=== PATIENT | female | born 1975 | race Caucasian/White ===

== ENCOUNTER 2016-05-08 15:01 | Emergency (ER) | payer MEDICARE ==
[2016-05-08] MEDS ORDERED: NS 0.9% 1000 ML* 1,000 ML IV ONE (16:45)
[2016-05-08] MEDS ORDERED: Ondansetron INJ* 2 MG/ML VIAL IV ONE (16:45)
--- NOTE | 2016-05-08 16:52 | ED ---
Influenza-Like Illness - HPI Summary HPI Summary: Pt here w/ flu-like sx x yesterday. Started as feeling fatigued and achey - pt reports fever of 104F orally this morning. This was followed by chills and trying to get warm under electric blanket - did not take anything for fever nor did she break a sweat but temp is WNL at this time. She has been vomiting and having diarrhea w/ ab discomfort and body wide aching persists. ST. Denies rhinorrhea, sneezing, otalgia, rash, cough. Went to son's school Tuesday and thinks she may have picked up an illness while there. She also has a bad BURGER/ migraine as she's not been able to hold down her daily meds, including atenolol , hormones that act as preventative migraine medication, synthroid, and anti- anxiety medication. Her BP is well controlled at this time, but heart rate is slightly increased. Her chart reveals she's been seen here frequently and she herself admits she gets sick quite a bit in the winter months. Follows w/ PCP and take dialudid 2mg PO PRN migraine BURGER. Checked ISTOP and last filled in March 2016. Pt denies withdrawal from narcotics. - History of Current Complaint Chief Complaint: EDHeadache Time Seen by Provider: 05/08/16 16:23 Hx Obtained From: Patient, Family/Divisional Human Resources Director - male partner - Allergy/Home Medications Allergies/Adverse Reactions: Allergies Allergy/AdvReac Type Severity Reaction Status Date / Time Metoclopramide [From Reglan] Allergy Severe Anaphylatic Verified 05/08/16 15:32 Shock Prochlorperazine Allergy Severe CAUSES Verified 05/08/16 15:32 [From Compazine] PARALYSIS Promethazine Allergy Severe distonic Verified 05/08/16 15:32 Tramadol [From Ultram] Allergy Severe Anaphylatic Verified 05/08/16 15:32 Shock, MAKES HEADACHE WORSE Haloperidol [From Haldol] Allergy Anxiety Verified 05/08/16 15:32 Hydralazine AdvReac Intermediate Headache Verified 05/08/16 15:32 Sumatriptan [From Imitrex] AdvReac Intermediate MAKES Verified 05/08/16 15:32 HEADACHES WORSE PMH/Surg Hx/FS Hx/Imm Hx Previously Healthy: Yes Endocrine/Hematology History: Reports: Hx Thyroid Disease - hypothyroidism, Hx Anemia - during and after of child- NO PROBLEMS NOW Denies: Hx Diabetes Cardiovascular History: Reports: Hx Hypertension - control with meds, Other Cardiovascular Problems/Disorders - Pulmonary heart edema after child Denies: Hx Congestive Heart Failure, Hx Pacemaker/ICD Respiratory History: Reports: Hx Pulmonary Edema - after child 2013, denies problems since, Other Respiratory Problems/Disorders - HAD PULMONARY EDEMA WHILE , WAS IN ICU for 1 week after csection Denies: Hx Asthma, Hx Chronic Obstructive Pulmonary Disease (COPD) GI History: Reports: Other GI Disorders - Gi problems related to pain which causes proj emesis- WITH MIGRAINES History: Denies: Hx Renal Disease Musculoskeletal History: Reports: Other Musculoskeletal History - Carpal tunnel of both hands Denies: Hx Rheumatoid Arthritis, Hx Osteoporosis Sensory History: Reports: Hx Contacts or Glasses - contact, will wear glasses day of surgery Denies: Hx Hearing Aid Opthamlomology History: Reports: Hx Contacts or Glasses - contact, will wear glasses day of surgery Neurological History: Reports: Hx Migraine - FREQUENTLY, Hx Seizures - when in her 20's reports 2-none since, Other Neuro Impairments/Disorders - 2013 numbness in legs DURING - release after csection Psychiatric History: Reports: Hx Anxiety, Hx Depression - CONTROL WITH MEDS, Hx Community Mental Health Tx, Hx Suicide Attempt - Denies but is here for ' accidental overdose on prescription medications', Other Psychiatric Issues/ Disorders Denies: Hx Eating Disorder, Hx Panic Disorder, Hx of Violent Episodes Against Others - Surgical History Surgery Procedure, Year, and Place: 1989 TONSILLECTOMY, [place]. 2000 MYOMECTOMY , [facility]. 2012 IVF, [place]. 2014 CSECTION, [facility] [place]. 2016-LEFT WRIST CARPAL TUNNEL RELEASE-MIGRAINE FOLLOWING SURGERY Hx Anesthesia Reactions: Yes - 2000-trouble waking up, had to be put back under x 2, epidural did not work - Immunization History Date of Tetanus Vaccine: Up to date Date of Influenza Vaccine: None for Fall 2012 Infectious Disease History: No Infectious Disease History: Denies: Hx Hepatitis, Hx Human Immunodeficiency Virus (HIV), Traveled Outside the [place] in Last 30 Days - Family History Known Family History: Positive: None, Other - mother: bipolar disorder; depression: grandmother, uncle Family History: R & n/X - Social History Lives: With Family Alcohol Use: None Hx Substance Use: No Substance Use Type: Reports: None Substance Use Comment - Amount & Last Used: took diluadid in ER last night with in 6 hrs for neck pain Hx Tobacco Use: No Smoking Status (MU): Never Smoked Tobacco Review of Systems Positive: Fever, Chills, Fatigue Positive: Photophobia Positive: Sore Throat Negative: Palpitations, Chest Pain Negative: Shortness Of Breath, Cough Gastrointestinal: Other - see HPI Negative: dysuria, flank pain Positive: Myalgia - see HPI Negative: Rash Positive: Headache - see HPI Psychological: Normal All Other Systems Reviewed And Are Negative: Yes Physical Exam Triage Information Reviewed: Yes Vital Signs On Initial Exam: Initial Vitals Temp Pulse Resp BP Pulse Ox 97.8 F 102 14 146/76 100 05/08/16 15:05 05/08/16 15:05 05/08/16 15:05 05/08/16 15:05 05/08/16 15:05 Vital Signs Reviewed: Yes Appearance: Positive: Well-Nourished, Ill-Appearing, Pain Distress Skin: Positive: Warm, Dry Diagnostics - Vital Signs Vital Signs Temp Pulse Resp BP Pulse Ox 05/08/16 15:05 97.8 F 102 14 146/76 100 - Laboratory Result Diagrams: 05/08/16 17:25 05/08/16 17:25 Lab Statement: Any lab studies that have been ordered have been reviewed, and results considered in the medical decision making process. Re-Evaluation - Re-Evaluation First Eval Change: Improved - nausea improved s/p zofran but still has BURGER - when discussed I would match her home dose of dilaudid (2mg PO = 0.5mg IV), pt states "I always get 2mg IV". Replied I would try a lower dose first and go from there Second Eval Change: Unchanged - no pain relief w/ 0.5mg dilaudid - offered ativan IV for anxiety as she takes clonazepam at home - pt declined and states she prefers diladid first, then will try ativan if necessary. Third Eval Change: Improved - pt is pleasant, sitting up, making eye contact, happy, remarks she feels SO much better s/p total of 2mg IV dilaudid. Feels well to go home now. Flu Symptom Course/Dx - Course Course Of Treatment: Pt presents w/ sx of flu-like illness and intractable pain - reports she has not been able to take her routine meds at home as she's had vomiting and diarrhea - wasn't able to take PO meds nor use suppository. She's also out of PO dilaudid she has for acute migraines. Checked ISTOP and pt's last rx was provided in March 2016. Prior to this, she was receiving dilaudid routinely from PCP. She also had a rx for clonazepam rx'd routinely by psych provider. She has multiple visits to the ED, receiving IV dilaudid most times. Discussed concern about pt addressing this with PCP as this is a poor means of addressing her condition. Offered discussing immunology assesment as her issues started after and she states she gets sick in the winter month frequently, triggering these episodes. She agrees to f/u w/ PCP this week. Labs are WNL today. CT brain and cervical spine 05/05/2015 normal. Will notify ED director, Dr. Ledbetter, about her frequency and treatment. This may be appropriate course of care, however this pattern does raises some flags and there may be benefit from a discussion w/ pt's PCP during the week days. Again, pt denies withdrawing as well as abuse of medication today which is why this was provided. - Diagnoses Provider Diagnoses: Migraine Discharge - Discharge Plan Condition: Stable Disposition: HOME Prescriptions: HYDROmorphone TAB* [Dilaudid TAB*] 2 mg PO Q6H PRN #15 tab MDD 4 PRN Reason: Pain Ondansetron ODT TAB* [Zofran Odt TAB*] 4 mg PO Q8H PRN #9 tab.odt PRN Reason: Nausea Patient Education Materials: Migraine Headache (ED), Acute Nausea and Vomiting (ED), Acute Diarrhea (ED) Referrals: Itzel Landeros MD [Primary Care Provider] - Additional Instructions: Your tests today do not indicate infection. The cause of your vomiting and diarrhea are unknown at this time however you improved with zofran and dilaudid. A short supply has been refilled for you. Please follow-up with your PCP this week. *If you develop intractable fever, vomiting, chest pain, difficulty breathing, weakness return to ED NOTE: you have a history of multiple hospital visits for illness and pain - it was discussed that you may benefit from an immune work up. Please discuss with PCP.
[2016-05-08 17:18] LABS: Urine Bilirubin Negative (Negative); Urine Glucose Negative (Negative); Urine Nitrite Negative (Negative)
[2016-05-08 17:40] LABS: Hematocrit 42 % (35-47); Hemoglobin 13.4 g/dl (12.0-16.0); Mean Corpuscular HGB Conc 32 g/dl (31-36); Mean Corpuscular Hemoglobin 24 pg (27-31); Mean Corpuscular Volume 75 fL (80-97); Mean Platelet Volume 10 um3 (7.4-10.4); Red Blood Count 5.55 10^6/ul (4.0-5.4); Red Cell Distribution Width 16 % (10.5-15); White Blood Count 8.4 10^3/ul (3.5-10.8)
[2016-05-08 17:55] LABS: Albumin 4.5 g/dL (3.2-5.2); BUN/Creatinine Ratio 11.6 (8-20); C Reactive Protein 2.69 mg/L (< 5.00); Calcium 9.6 mg/dL (8.6-10.3); EGFR African American 120.6 (>60); EGFR Non-African American 93.8 (>60); Potassium 3.8 mmol/L (3.5-5.0); Total Bilirubin 0.3 mg/dL (0.2-1.0); Total Protein 7.5 g/dL (6.4-8.9)
[2016-05-08] MEDS ORDERED: HYDROmorphone INJ* 1 MG/ML CARPUJECT SYRINGE IV SLOW PU ONE ×2 (17:55→18:19)
[2016-05-08] MEDS ORDERED: Atenolol TAB* 25 MG PO ONE (18:20)
[2016-05-08 19:42] VITALS: BP 122/81
== END 2016-05-08 19:41 | disposition home or self-care (01) ==
LOC: ED 15:01
DX: G43.909 Migraine, unspecified, not intractable, without status migrainosus (principal); R50.9 Fever, unspecified; R53.83 Other fatigue; R51 Headache; H53.149 Visual discomfort, unspecified; J02.9 Acute pharyngitis, unspecified
CPT/HCPCS: 36415; 80053; 81003; 83605; 85025; 86140; 87502; 87651; 96374; 96375; 96376; 99284; J1170; J2405

== ENCOUNTER → 2016-05-09 17:27 | Emergency (ER) | payer MEDICARE ==
[~2016-05-09 17:27] MED LIST: NS 0.9% 1000 ML* 1,000 ML IV ONE
[2016-05-09 17:33] VITALS: BP 129/86
[2016-05-09 18:15] LABS: Urine Bilirubin Negative (Negative); Urine Glucose Negative (Negative); Urine Nitrite Negative (Negative)
--- NOTE | 2016-05-09 18:45 | RAD ---
Indication: Unable to speak for a few minutes. Comparison: May 05, 2015. Technique: Noncontrast CT vertex of skull through foramen magnum. Report: The sulci, ventricles, and basal cisterns are normal for age. Santos matter white matter differentiation is preserved without evidence for edema. Minimal bilateral calcification noted at the tentorium cerebelli unchanged from the prior exam without concern. No intra or extra axial hemorrhage, mass, or fluid collection detected. Unremarkable orbital contents. Unremarkable calvarium and skull base. Unremarkable scalp. The visualized paranasal sinuses and mastoid air spaces are clear. IMPRESSION: Negative unenhanced head CT.
--- NOTE | 2016-05-09 19:13 | ED ---
Renetta Ching Rebecca, scribed for Christopher Metz MD on 05/09/16 at 1750 . Shortness of Breath - HPI Summary HPI Summary: Pt is a 40 y/o F BIBA who presents to ED c/o SOB. SOB began suddenly today while sleeping and has been constant since onset. SOB characterized as mild dyspnea at rest, aggravated and alleviated by nothing. Additionally c/o difficulty speaking/stuttering and dry mouth. Reports that while talking to her mom "I felt like I was talking to her and I couldn't pronounce or say any words. " Pt was evaluated in the ED yesterday for N/V and was D/C upon feeling significantly improved. - History of Current Complaint Chief Complaint: EDHeadache Time Seen by Provider: 05/09/16 17:37 Hx Obtained From: Patient Onset/Duration: Sudden Onset Timing: Constant Current Severity: Mild Dyspnea At: Rest Aggrevating Factors: Nothing Alleviating Factors: Nothing Associated Signs & Symptoms: Negative - Allergy/Home Medications Allergies/Adverse Reactions: Allergies Allergy/AdvReac Type Severity Reaction Status Date / Time Metoclopramide [From Reglan] Allergy Severe Anaphylatic Verified 05/08/16 15:32 Shock Prochlorperazine Allergy Severe CAUSES Verified 05/08/16 15:32 [From Compazine] PARALYSIS Promethazine Allergy Severe distonic Verified 05/08/16 15:32 Tramadol [From Ultram] Allergy Severe Anaphylatic Verified 05/08/16 15:32 Shock, MAKES HEADACHE WORSE Haloperidol [From Haldol] Allergy Anxiety Verified 05/08/16 15:32 Hydralazine AdvReac Intermediate Headache Verified 05/08/16 15:32 Sumatriptan [From Imitrex] AdvReac Intermediate MAKES Verified 05/08/16 15:32 HEADACHES WORSE PMH/Surg Hx/FS Hx/Imm Hx Endocrine/Hematology History: Reports: Hx Thyroid Disease - hypothyroidism, Hx Anemia - during and after of child- NO PROBLEMS NOW Denies: Hx Diabetes Cardiovascular History: Reports: Hx Hypertension - control with meds, Other Cardiovascular Problems/Disorders - Pulmonary heart edema after child Denies: Hx Congestive Heart Failure, Hx Pacemaker/ICD Respiratory History: Reports: Hx Pulmonary Edema - after child 2013, denies problems since, Other Respiratory Problems/Disorders - HAD PULMONARY EDEMA WHILE , WAS IN ICU for 1 week after csection Denies: Hx Asthma, Hx Chronic Obstructive Pulmonary Disease (COPD) GI History: Reports: Other GI Disorders - Gi problems related to pain which causes proj emesis- WITH MIGRAINES History: Denies: Hx Renal Disease Musculoskeletal History: Reports: Other Musculoskeletal History - Carpal tunnel of both hands Denies: Hx Rheumatoid Arthritis, Hx Osteoporosis Sensory History: Reports: Hx Contacts or Glasses - contact, will wear glasses day of surgery Denies: Hx Hearing Aid Opthamlomology History: Reports: Hx Contacts or Glasses - contact, will wear glasses day of surgery Neurological History: Reports: Hx Migraine - FREQUENTLY, Hx Seizures - when in her 20's reports 2-none since, Other Neuro Impairments/Disorders - 2013 numbness in legs DURING - release after csection Psychiatric History: Reports: Hx Anxiety, Hx Depression - CONTROL WITH MEDS, Hx Community Mental Health Tx, Hx Suicide Attempt - Denies but is here for ' accidental overdose on prescription medications', Other Psychiatric Issues/ Disorders Denies: Hx Eating Disorder, Hx Panic Disorder, Hx of Violent Episodes Against Others - Surgical History Surgery Procedure, Year, and Place: 1989 TONSILLECTOMY, [place]. 2000 MYOMECTOMY , [facility]. 2012 IVF, [place]. 2014 CSECTION, [facility] [place]. 2016-LEFT WRIST CARPAL TUNNEL RELEASE-MIGRAINE FOLLOWING SURGERY Hx Anesthesia Reactions: Yes - 2000-trouble waking up, had to be put back under x 2, epidural did not work - Immunization History Date of Tetanus Vaccine: Up to date Date of Influenza Vaccine: None for Fall 2012 Infectious Disease History: No Infectious Disease History: Denies: Hx Hepatitis, Hx Human Immunodeficiency Virus (HIV), Traveled Outside the [place] in Last 30 Days - Family History Known Family History: Positive: Other - mother: bipolar disorder; depression: grandmother, uncle - Social History Alcohol Use: Rare Hx Substance Use: No Substance Use Type: Reports: None Hx Tobacco Use: No Smoking Status (MU): Never Smoked Tobacco Review of Systems Positive: Other - Dry throat Positive: Shortness Of Breath - dyspnea at rest Neurological: Other - Difficulty speaking/stuttering All Other Systems Reviewed And Are Negative: Yes Physical Exam - Summary Physical Exam Summary: VITAL SIGNS: Reviewed. GENERAL: Patient is a well developed and nourished female who is lying comfortable in the stretcher. Patient is not in any acute respiratory distress. HEAD AND FACE: No signs of trauma. No ecchymosis, hematomas or skull depressions. No sinus tenderness. EYES: PERRLA, EOMI x 2, No injected conjunctiva, no nystagmus. No photophobia. EARS: Hearing grossly intact. Ear canals and tympanic membranes are within normal limits. MOUTH: Oropharynx within normal limits. NECK: Supple, trachea is midline, no adenopathy, no JVD, no carotid bruit, no c- spine tenderness, neck with full ROM. No meningeal signs, no Kernig's or brudzinskis signs. CHEST: Symmetric, no tenderness at palpation LUNGS: Clear to auscultation bilaterally. No wheezing or crackles. CVS: Regular rate and rhythm, S1 and S2 present, no murmurs or gallops appreciated. ABDOMEN: Soft, non-tender. No signs of distention. No rebound no guarding, and no masses palpated. Bowel sounds are normal. EXTREMITIES: FROM in all major joints, no edema, no cyanosis or clubbing. NEURO: Alert and oriented x 3. No acute neurological deficits. Speech is normal and follows commands. SKIN: Dry and warm Triage Information Reviewed: Yes Vital Signs On Initial Exam: Initial Vitals Temp Pulse Resp BP Pulse Ox 98.0 F 94 20 129/86 100 05/09/16 17:28 05/09/16 17:28 05/09/16 17:28 05/09/16 17:28 05/09/16 17:28 Vital Signs Reviewed: Yes Diagnostics - Vital Signs Vital Signs Temp Pulse Resp BP Pulse Ox 05/09/16 17:28 98.0 F 94 20 129/86 100 - Laboratory Lab Results: Lab Results 05/09/16 Range/Units 18:03 Urine Color Straw Urine Appearance Clear Urine pH 5.0 (5-9) Ur Specific [place] 1.003 L (1.010-1.030) Urine Protein Negative (Negative) Urine Ketones Negative (Negative) Urine Blood Negative (Negative) Urine Nitrate Negative (Negative) Urine Bilirubin Negative (Negative) Urine Urobilinogen Negative (Negative) Ur Leukocyte Esterase Negative (Negative) Urine Glucose Negative (Negative) Lab Statement: Any lab studies that have been ordered have been reviewed, and results considered in the medical decision making process. - CT Brain CT CT Interpretation: No Acute Changes - Negative unenhanced head CT. CT Interpretation Completed By: Radiologist Course/Dx - Course Assessment/Plan: Pt is a 40 y/o F BIBA who presents to ED c/o SOB which began suddenly today while sleeping and has been constant since onset. SOB characterized as mild dyspnea at rest, aggravated and alleviated by nothing. Additionally c/o difficulty speaking/stuttering and dry mouth. Reports that while talking to her mom "I felt like I was talking to her and I couldn't pronounce or say any words." Pt was evaluated in the ED yesterday for N/V and was D/C upon feeling significantly improved. P/E: reveals normal physical exam except for dry mouth. Her neurological exam is normal. NIH score is 0. At triage she reported a headache since she has runned out of her Dilaudid. However during my interview she did not mention she has a migraine headache. She had full blood work yesterday and it was found to be wnl. UA was negative for UTI. Lung exam: CTA b/l. She has no wheezing, and she has no crackles. Therefore I don not believe patient has Asthma or COPD. No suspicion for PE since patient is not hypoxic or tachycardic. I believe patient became anxious and developed all her symptoms. Head CT impression: Negative for an acute intracranial pathology. I believe patient was dehydrated therefore she was given IF fluid. Right before she was discharged she reported a headache. She requested excedrin. We do not have any Excedrin and she was offer Toradol or TYlenol or Ibuprofen and she declined. Therefore she will be discharged home with F/u of PMD. I discussed all the findings and test results with the patient. Patient was instructed to return to the emergency room immediately if any of the symptoms return or worsens. Plan of care was discussed with the patient and understands and agrees. All questions were answered at patient satisfaction. There were no further complaints or concerns. P/E: Lungs: CTA B/ L. Good air exchange. No wheezing or crackles heard. CVS: S1 and S2 present. No murmurs appreciated. Patient is alert and oriented x 3. Patient is hemodynamically stable. Patient will be discharged home with follow up PMD in the next 2-3 days - Diagnoses Differential Diagnosis/HQI/PQRI: Positive: Asthma, COPD Exacerbation Provider Diagnoses: Anxiety, Weakness, Dyspnea Discharge - Discharge Plan Condition: Stable Disposition: HOME Patient Education Materials: Weakness (ED) Referrals: Itzel Landeros MD [Primary Care Provider] - 3 Days (Follow up with your primary care physician in the next 3 days. ) The documentation as recorded by the Renetta bolanos Rebecca accurately reflects the service I personally performed and the decisions made by me, Christopher Metz MD.
== END | disposition home or self-care (01) ==
LOC: ED 17:27
DX: F41.9 Anxiety disorder, unspecified (principal); R53.1 Weakness; R06.00 Dyspnea, unspecified
CPT/HCPCS: 70450; 81003; 99282

== ENCOUNTER 2016-05-23 02:44 | Inpatient (IN) | payer MEDICARE ==
[2016-05-23] MEDS ORDERED: Ondansetron INJ* 2 MG/ML VIAL IV ONE (03:03)
[2016-05-23] MEDS ORDERED: GuaiFENesin DM* 5 ML UDC PO ONE (03:25)
[2016-05-23] MEDS ORDERED: LORazepam INJ* 2 MG/ML 1 ML VIAL IV PUSH ONE (03:26)
[2016-05-23] MEDS ORDERED: Albuterol 2.5 MG/3 ML NEB.SOL* (0.083%) INH ONE (04:33)
[2016-05-23 04:50] LABS: Hematocrit 35 % (35-47); Hemoglobin 11.2 g/dl (12.0-16.0); Mean Corpuscular HGB Conc 32 g/dl (31-36); Mean Corpuscular Hemoglobin 24 pg (27-31); Mean Platelet Volume 9 um3 (7.4-10.4); Red Cell Distribution Width 16 % (10.5-15); White Blood Count 13.1 10^3/ul (3.5-10.8)
[2016-05-23 04:55] LABS: Comments Flag Yes; Mean Corpuscular Volume 75 fL (80-97)
[2016-05-23 05:07] LABS: Albumin 3.7 g/dL (3.2-5.2); BUN/Creatinine Ratio 8.4 (8-20); Calcium 9.2 mg/dL (8.6-10.3); EGFR African American 97.4 (>60); EGFR Non-African American 75.8 (>60); Globulin 3.3 g/dL (2-4); Potassium 3.3 mmol/L (3.5-5.0); Total Bilirubin 0.4 mg/dL (0.2-1.0)
[2016-05-23] MEDS ORDERED: Iohexol 350* (CONTRAST) 500 ML MDV IV ONE (05:19)
[2016-05-23] MEDS ORDERED: Ketorolac INJ* 30 MG/ML 1 ML VIAL IV PUSH ONE (05:46)
--- NOTE | 2016-05-23 05:54 | ED ---
Delma Ching Michael, scribed for Lukas Doss MD on 05/23/16 at 0343 . Shortness of Breath - HPI Summary HPI Summary: 40 y/o female comes to the ED presenting with SOB that started 2 days ago. The was bedside and reports that the pt visited her PCP 2 days ago and was prescribed Prednisone, Albuterol, and Benzonatate. The SOB still gradually worsened for the past 2 days. She also c/o a non-productive cough and back pain that is aggravated with movement. The PMHx is significant for pulmonary edema. - History of Current Complaint Time Seen by Provider: 05/23/16 02:51 Hx Obtained From: Patient, Family/Ortho Tech - , Medical Records Onset/Duration: Gradual Onset, Lasting Days, Still Present Timing: Constant Current Severity: Moderate Dyspnea At: Rest Alleviating Factors: Nothing Associated Signs & Symptoms: Cough (Nonproductive) - SOB. back pain. - Allergy/Home Medications Allergies/Adverse Reactions: Allergies Allergy/AdvReac Type Severity Reaction Status Date / Time Metoclopramide [From Reglan] Allergy Severe Anaphylatic Verified 05/08/16 15:32 Shock Prochlorperazine Allergy Severe CAUSES Verified 05/08/16 15:32 [From Compazine] PARALYSIS Promethazine Allergy Severe distonic Verified 05/08/16 15:32 Tramadol [From Ultram] Allergy Severe Anaphylatic Verified 05/08/16 15:32 Shock, MAKES HEADACHE WORSE Haloperidol [From Haldol] Allergy Anxiety Verified 05/08/16 15:32 Hydralazine AdvReac Intermediate Headache Verified 05/08/16 15:32 Sumatriptan [From Imitrex] AdvReac Intermediate MAKES Verified 05/08/16 15:32 HEADACHES WORSE PMH/Surg Hx/FS Hx/Imm Hx Endocrine/Hematology History: Reports: Hx Thyroid Disease - hypothyroidism, Hx Anemia - during and after of child- NO PROBLEMS NOW Denies: Hx Diabetes Cardiovascular History: Reports: Hx Hypertension - control with meds, Other Cardiovascular Problems/Disorders - Pulmonary heart edema after child Denies: Hx Congestive Heart Failure, Hx Pacemaker/ICD Respiratory History: Reports: Hx Pulmonary Edema - after child 2013, denies problems since, Other Respiratory Problems/Disorders - HAD PULMONARY EDEMA WHILE , WAS IN ICU for 1 week after csection Denies: Hx Asthma, Hx Chronic Obstructive Pulmonary Disease (COPD) GI History: Reports: Other GI Disorders - Gi problems related to pain which causes proj emesis- WITH MIGRAINES History: Denies: Hx Renal Disease Musculoskeletal History: Reports: Other Musculoskeletal History - Carpal tunnel of both hands Denies: Hx Rheumatoid Arthritis, Hx Osteoporosis Sensory History: Reports: Hx Contacts or Glasses - contact, will wear glasses day of surgery Denies: Hx Hearing Aid Opthamlomology History: Reports: Hx Contacts or Glasses - contact, will wear glasses day of surgery Neurological History: Reports: Hx Migraine - FREQUENTLY, Hx Seizures - when in her 20's reports 2-none since, Other Neuro Impairments/Disorders - 2013 numbness in legs DURING - release after csection Psychiatric History: Reports: Hx Anxiety, Hx Depression - CONTROL WITH MEDS, Hx Community Mental Health Tx, Hx Suicide Attempt - Denies but is here for ' accidental overdose on prescription medications', Other Psychiatric Issues/ Disorders Denies: Hx Eating Disorder, Hx Panic Disorder, Hx of Violent Episodes Against Others - Surgical History Surgery Procedure, Year, and Place: 1989 TONSILLECTOMY, [place]. 2000 MYOMECTOMY , [facility]. 2012 IVF, [place]. 2013 CSECTION, [facility]. 2016-LEFT WRIST CARPAL TUNNEL RELEASE-MIGRAINE FOLLOWING SURGERY Hx Anesthesia Reactions: Yes - 2000-trouble waking up, had to be put back under x 2, epidural did not work - Immunization History Date of Tetanus Vaccine: Up to date Date of Influenza Vaccine: None for Fall 2012 Infectious Disease History: Denies: Hx Hepatitis, Hx Human Immunodeficiency Virus (HIV) - Family History Known Family History: Positive: Other - mother: bipolar disorder; depression: grandmother, uncle - Social History Occupation: Disabled Lives: With Family Alcohol Use: Rare Hx Substance Use: No Substance Use Type: Reports: None Hx Tobacco Use: No Smoking Status (MU): Never Smoked Tobacco Review of Systems Negative: Fever Positive: Shortness Of Breath, Cough Positive: Other - back pain All Other Systems Reviewed And Are Negative: Yes Physical Exam Triage Information Reviewed: Yes Vital Signs On Initial Exam: Initial Vitals Temp Pulse Resp BP Pulse Ox 99.3 F 130 38 150/113 97 05/23/16 02:54 05/23/16 02:54 05/23/16 02:54 05/23/16 02:54 05/23/16 02:54 Vital Signs Reviewed: Yes Appearance: Positive: Pain Distress - mild discomfort, Thin Skin: Positive: Warm Head/Face: Positive: Normal Head/Face Inspection Eyes: Positive: JOSUE ENT: Positive: Hearing grossly normal Neck: Positive: Supple Respiratory/Lung Sounds: Positive: Other - coughing, mild splinting, clear Cardiovascular: Positive: RRR Abdomen Description: Positive: Nontender, Soft Bowel Sounds: Positive: Present Musculoskeletal: Positive: Strength/ROM Intact Neurological: Positive: Alert, Oriented to Person Place, Time Psychiatric: Positive: Anxious Diagnostics - Vital Signs Vital Signs Temp Pulse Resp BP Pulse Ox 05/23/16 05:46 185/166 05/23/16 05:28 122 100 05/23/16 05:00 108 118/53 100 05/23/16 04:47 24 05/23/16 04:45 123 98 05/23/16 04:44 136/65 05/23/16 03:17 99.3 F 130 38 150/113 97 05/23/16 02:54 99.3 F 130 38 150/113 97 - Laboratory Lab Results: Lab Results 05/23/16 05/23/16 05/23/16 Range/Units 04:33 04:33 04:33 WBC 13.1 H (3.5-10.8) 10^3/ul RBC 4.70 (4.0-5.4) 10^6/ul Hgb 11.2 L (12.0-16.0) g/dl Hct 35 (35-47) % MCV 75 L (80-97) fL MCH 24 L (27-31) pg MCHC 32 (31-36) g/dl RDW 16 H (10.5-15) % Plt Count 221 (150-450) 10^3/ul MPV 9 (7.4-10.4) um3 Neut % (Auto) 78.5 (38-83) % Lymph % (Auto) 16.4 L (25-47) % [place] % (Auto) 4.5 (1-9) % Eos % (Auto) 0.1 (0-6) % Baso % (Auto) 0.5 (0-2) % Absolute Neuts (auto) 10.3 H (1.5-7.7) 10^3/ul Absolute Lymphs (auto) 2.1 (1.0-4.8) 10^3/ul Absolute Monos (auto) 0.6 (0-0.8) 10^3/ul Absolute Eos (auto) 0 (0-0.6) 10^3/ul Absolute Basos (auto) 0.1 (0-0.2) 10^3/ul Absolute Nucleated RBC 0 10^3/ul Nucleated RBC % 0 D-Dimer, Quantitative (Less Than 230) ng/mL Sodium 134 (133-145) mmol/L Potassium 3.3 L (3.5-5.0) mmol/L Chloride 101 (101-111) mmol/L Carbon Dioxide 22 (22-32) mmol/L Anion Gap 11 (2-11) mmol/L BUN 7 (6-24) mg/dL Creatinine 0.83 (0.51-0.95) mg/dL Est GFR ( Amer) 97.4 (>60) Est GFR (Non-Af Amer) 75.8 (>60) BUN/Creatinine Ratio 8.4 (8-20) Glucose 94 (70-100) mg/dL Lactic Acid 3.7 H* (0.5-2.0) mmol/L Calcium 9.2 (8.6-10.3) mg/dL Total Bilirubin 0.40 (0.2-1.0) mg/dL AST 19 (13-39) U/L ALT 17 (7-52) U/L Alkaline Phosphatase 63 (34-104) U/L B-Natriuretic Peptide ( - 100) pg/mL Total Protein 7.0 (6.4-8.9) g/dL Albumin 3.7 (3.2-5.2) g/dL Globulin 3.3 (2-4) g/dL Albumin/Globulin Ratio 1.1 (1-3) 05/23/16 05/23/16 Range/Units 04:33 04:33 WBC (3.5-10.8) 10^3/ul RBC (4.0-5.4) 10^6/ul Hgb (12.0-16.0) g/dl Hct (35-47) % MCV (80-97) fL MCH (27-31) pg MCHC (31-36) g/dl RDW (10.5-15) % Plt Count (150-450) 10^3/ul MPV (7.4-10.4) um3 Neut % (Auto) (38-83) % Lymph % (Auto) (25-47) % [place] % (Auto) (1-9) % Eos % (Auto) (0-6) % Baso % (Auto) (0-2) % Absolute Neuts (auto) (1.5-7.7) 10^3/ul Absolute Lymphs (auto) (1.0-4.8) 10^3/ul Absolute Monos (auto) (0-0.8) 10^3/ul Absolute Eos (auto) (0-0.6) 10^3/ul Absolute Basos (auto) (0-0.2) 10^3/ul Absolute Nucleated RBC 10^3/ul Nucleated RBC % D-Dimer, Quantitative 360 H (Less Than 230) ng/mL Sodium (133-145) mmol/L Potassium (3.5-5.0) mmol/L Chloride (101-111) mmol/L Carbon Dioxide (22-32) mmol/L Anion Gap (2-11) mmol/L BUN (6-24) mg/dL Creatinine (0.51-0.95) mg/dL Est GFR ( Amer) (>60) Est GFR (Non-Af Amer) (>60) BUN/Creatinine Ratio (8-20) Glucose (70-100) mg/dL Lactic Acid (0.5-2.0) mmol/L Calcium (8.6-10.3) mg/dL Total Bilirubin (0.2-1.0) mg/dL AST (13-39) U/L ALT (7-52) U/L Alkaline Phosphatase (34-104) U/L B-Natriuretic Peptide 56 ( - 100) pg/mL Total Protein (6.4-8.9) g/dL Albumin (3.2-5.2) g/dL Globulin (2-4) g/dL Albumin/Globulin Ratio (1-3) Result Diagrams: 05/23/16 04:33 05/23/16 04:33 Lab Statement: Any lab studies that have been ordered have been reviewed, and results considered in the medical decision making process. - Radiology CXR Xray Interpretation: No Acute Changes - poor quality film Radiology Interpretation Completed By: ED Physician - CT CTA Chest CT Interpretation: Positive (See Comments) - No evidence of pulmonary embolism, thoracic aortic aneurysm, or dissection. Right apical, left upper lobe and bilateral lower lobe consolidation that is suggestive of a pneumonic process. The heart is normal in size with an anterior pericardial effusion that measures 1.0 cm in maximum width. No pneumothorax. pleural effusion or mediastinal lymphadenopathy. Survey of upper abdomen demonstrates no acute abnormality. CT Interpretation Completed By: Radiologist Re-Evaluation - Re-Evaluation First Eval Re-Evaluation Time: 06:28 - results d/w pt, d/w dr agnulo Change: Improved Course/Dx - Course Course Of Treatment: consulted Dr. Angulo at 0645-Dr. Angulo accepts the pt as an admission - Diagnoses Provider Diagnoses: Pneumonia Discharge - Discharge Plan Condition: Stable Disposition: ADMITTED TO [facility] Discharge Disposition Comment: pt will be admitted to [facility] and accepted by Dr. Angulo Referrals: Itzel Landeros MD [Primary Care Provider] - The documentation as recorded by the Delma bolanos Michael accurately reflects the service I personally performed and the decisions made by , Lukas Doss MD.
[2016-05-23] MEDS ORDERED: cefTRIAXone(*) 1 GM in NS 0.9% 50 ML* 50 ML IVPB ONE (06:22)
[2016-05-23] MEDS ORDERED: Azithromycin IV(*) 500 MG in NS 0.9% 250 ML* 250 ML IVPB ONE (06:22)
[2016-05-23 06:53] LABS: PCO2 Arterial 17 mmHg (35-45)
[2016-05-23] MEDS ORDERED: Acetaminophen SUPP* 650 MG SUPP PR PRN (06:58)
[2016-05-23] MEDS ORDERED: HYDROmorphone INJ* 1 MG/ML CARPUJECT SYRINGE IV SLOW PU PRN (07:00)
[2016-05-23] MEDS: methylPREDNISolone SOD 40 MG* 1 ML VIAL IV SCH ×3 (07:38→23:29)
[2016-05-23] MEDS: Benzonatate CAP* 100 MG PO PRN ×2 (07:38→19:07)
--- NOTE | 2016-05-23 07:40 | RAD ---
HISTORY: Shortness of breath COMPARISONS: July 14, 2015 VIEWS: Single frontal dual-energy view of the chest FINDINGS: CARDIOMEDIASTINAL SILHOUETTE: The cardiomediastinal silhouette is normal. CRISSY: The crissy are normal. PLEURA: The costophrenic angles are sharp. No pleural abnormalities are noted. LUNG PARENCHYMA: There is patchy alveolar opacification of the lower lobes bilaterally ABDOMEN: The upper abdomen is clear. There is no subphrenic gas. BONES AND SOFT TISSUES: No bone or soft tissue abnormalities are noted. OTHER: None. IMPRESSION: PATCHY AIRSPACE DISEASE OF THE LOWER LOBES BILATERALLY
--- NOTE | 2016-05-23 07:42 | RAD ---
HISTORY: Chest pain, elevated d-dimer COMPARISONS: April 29, 2014 TECHNIQUE: Multiple contiguous axial CT scans of the chest were obtained after the administration of nonionic intravenous contrast, timed to the pulmonary arterial phase of contrast enhancement.. Coronal and sagittal multiplanar reformations are also submitted for review. FINDINGS: NECK AND THYROID: The lower neck and thyroid are unremarkable. CHEST WALL: There is no lower cervical, axillary, or supraclavicular lymphadenopathy by size criteria. HEART AND PERICARDIUM: The heart is unremarkable. There is a small pericardial effusion. AORTA AND PULMONARY VASCULATURE: There is no pulmonary arterial filling defect to suggest pulmonary embolism. There is no linear filling defect within the aorta to suggest aortic dissection. MEDIASTINUM: There is no mediastinal lymphadenopathy by size criteria. CRISSY: There is no hilar lymphadenopathy by size criteria. AIRWAY AND ESOPHAGUS: The airway is unremarkable, without endobronchial filling defect. The esophagus is grossly normal. LUNG PARENCHYMA: There is groundglass opacification of the lower lobes bilaterally, with mild ground less opacification of the left upper lobe PLEURA: No pleural abnormalities are noted. UPPER ABDOMEN: The upper abdomen is unremarkable. BONES AND SOFT TISSUES: No bone or soft tissue abnormalities are noted. OTHER: None. IMPRESSION: 1. NO PULMONARY ARTERIAL FILLING DEFECT TO SUGGEST PULMONARY EMBOLISM. 2. SMALL PERICARDIAL EFFUSION. 3. MULTIFOCAL AIRSPACE DISEASE INVOLVING THE LOWER LOBES BILATERALLY AND LEFT UPPER LOBE. THE APPEARANCE IS SUGGESTIVE OF AN INFECTIOUS OR INFLAMMATORY PROCESS.
[2016-05-23] MEDS: HYDROmorphone TAB* 2 MG PO PRN ×2 (09:51→16:21)
--- NOTE | 2016-05-23 10:04 | HP ---
HISTORY AND PHYSICAL: DATE OF ADMISSION: 05/23/16 PRIMARY CARE PHYSICIAN: Itzel Stewart MD. CHIEF COMPLAINT: Shortness of breath. HISTORY OF PRESENT ILLNESS: The patient is a 40-year-old woman who states since 05/07/16 she stared feeling ill. She says she has chest tightness and pain and a cough that is nonproductive. She feels increasingly short of breath. She saw her primary care doctor and initially got antibiotic therapy. She cannot recall the name of the antibiotic. She did not get better, went back and got steroids and cough medications. She received Tessalon Perles. This still did not help. She has been getting worse. She has had fevers and chills and now has an excruciating pain, especially in her back. She has wheezing as well. The cough makes it very painful. She has a history of pulmonary edema in the past and was concerned this might be the cause. PAST MEDICAL HISTORY: She has a past medical history significant for migraines , anxiety, depression, preeclampsia, carpal tunnel. PAST SURGICAL HISTORY: Significant for . CURRENT MEDICATIONS: The patient does not have a list. We are getting it from her pharmacy. ALLERGIES: Adverse reactions to METOCLOPRAMIDE, PROCHLORPERAZINE, PROMETHAZINE , TRAMADOL, HALOPERIDOL, HYDRALAZINE, and SUMATRIPTAN. FAMILY HISTORY: Mother is alive at 64, has bipolar disorder. Father is alive, has leukemia. SOCIAL HISTORY: No alcohol, tobacco or recreational drug use. 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 She is , with one son. REVIEW OF SYSTEMS: A 14-point review of systems is completed with the patient. All pertinent positives and negatives are in the history of present illness, otherwise it is negative. PHYSICAL EXAMINATION GENERAL: A pleasant woman, lying in bed, in no acute distress. VITAL SIGNS: Blood pressure 123/68, pulse ox 99% on 2 L, heart rate 115 beats per minute, temperature T-max 99.3 degrees. HEENT: Normocephalic and atraumatic. Pupils are equal, round and reactive to light. Moist mucous membranes. NECK: Supple. No JVD, bruits, palpable thyroid or lymphadenopathy. CHEST: Bilateral wheezing. CARDIOVASCULAR: S1, S2 appreciated. ABDOMEN: Positive bowel sounds in all 4 quadrants. Soft, nontender, and nondistended. EXTREMITIES: No cyanosis, clubbing, or edema. +2 peripheral pulses bilaterally. NEUROLOGIC: Alert and oriented x3. Moves all extremities. SKIN: No distinct rashes or abnormalities. LABORATORY DATA: D-dimer is 360. White count 13.1, hemoglobin 11.2, hematocrit 35, platelets are 221. Chemistry: Sodium 134, potassium 3.3, chloride 101, CO2 of 22, BUN 7, creatinine 0.83, glucose 94, lactic acid is 3.7. Chest x-ray may show pneumonia on the right side. CTA shows no evidence of pulmonary embolism, thoracic or aortic aneurysm or dissection. Right apical left upper lobe and bilateral lower lobe consolidation suggest a pneumonic process. Heart is normal in size, with anterior pericardial effusion that measures 1 cm in maximum width. No pneumothorax, pleural effusion or mediastinal lymphadenopathy. On survey of her abdomen there is no acute abnormality. ASSESSMENT AND PLAN: 1. Bilateral pneumonia. Place the patient on Rocephin and Zithromax. Place the patient on Tessalon Perles. Obtain sputum C and S, urine legionella pneumococcal antigen. 2. Wheezing. No history of asthma or COPD. We place the patient on Solu- Medrol and albuterol nebulizer. 3. Depression and anxiety. We will obtain med list from pharmacy and give patient home meds. 4. Pain. We will give the patient Dilaudid p.r.n. 5. DVT prophylaxis. Heparin subcu. 6. FEN. Regular diet. 7. The patient is a full code. TIME SPENT: Over 75 minutes were spent on this H and P; more than 40 minutes of which were spent in direct [id number] contact with the patient, in evaluation, physical exam, counseling, and coordination of care. CC: Dr. Itzel Stewart * [id number]/CPS #: [id number] MTDKunal
[2016-05-23] MEDS: Heparin VIAL(*) 5000 UNITS/ML VIAL (FIVE THOUSAND) SUBCUT SCH ×2 (13:20→20:50)
[2016-05-23] MEDS: HYDROmorphone INJ* 1 MG/ML CARPUJECT SYRINGE IV SLOW PU PRN ×2 (19:08→23:29)
[2016-05-23] MEDS: FLUoxetine CAP* 20 MG PO SCH (21:18)
[2016-05-23] MEDS: clonazePAM TAB(*) 0.5 MG PO PRN (21:19)
[2016-05-24] MEDS: Benzonatate CAP* 100 MG PO PRN ×3 (01:28→22:55)
[2016-05-24] MEDS: HYDROmorphone INJ* 1 MG/ML CARPUJECT SYRINGE IV SLOW PU PRN ×4 (03:31→20:24)
[2016-05-24] MEDS: Albuterol 2.5 MG/3 ML NEB.SOL* (0.083%) INH PRN (05:03)
[2016-05-24] MEDS: Levothyroxine TAB* 50 MCG TAB PO SCH (05:20)
[2016-05-24] MEDS: Heparin VIAL(*) 5000 UNITS/ML VIAL (FIVE THOUSAND) SUBCUT SCH ×3 (05:20→20:34)
[2016-05-24 06:47] LABS: Hematocrit 34 % (35-47); Mean Corpuscular HGB Conc 32 g/dl (31-36); Mean Corpuscular Hemoglobin 24 pg (27-31); Mean Platelet Volume 10 um3 (7.4-10.4); Red Blood Count 4.58 10^6/ul (4.0-5.4); Red Cell Distribution Width 16 % (10.5-15); White Blood Count 14.7 10^3/ul (3.5-10.8)
[2016-05-24 06:48] LABS: Comments Flag Yes
[2016-05-24 06:49] LABS: Mean Corpuscular Volume 75 fL (80-97)
[2016-05-24] MEDS: clonazePAM TAB(*) 0.5 MG PO PRN ×2 (07:38→20:33)
[2016-05-24] MEDS ORDERED: FLUoxetine CAP* 20 MG PO SCH (09:00)
[2016-05-24] MEDS: cefTRIAXone VIAL(*) 1,000 MG in NS 0.9% 50 ML* 50 ML IVPB SCH (09:03)
[2016-05-24] MEDS: FLUoxetine CAP* 20 MG PO SCH ×3 (09:03→20:31)
[2016-05-24] MEDS: methylPREDNISolone SOD 40 MG* 1 ML VIAL IV SCH ×2 (09:03→15:17)
[2016-05-24] MEDS ORDERED: HYDROmorphone INJ* 2 MG/ML CARPUJECT SYRINGE IV SLOW PU ONE (09:58)
--- NOTE | 2016-05-24 10:03 | PN ---
Subjective Date of Service: 05/24/16 Interval History: Patient seen and examined at bedside. Pt states that she continues to have a headache, that the pain medications is not helping. Pt states that this is similar to her typical migraine that she would present to the emergency room for IV medications. Pt is anxious this morning. Denies fever, chills, N/V/D. Pt reports "sharp mid sternal chest discomfort" with deep breath and shortness of breath. She is requesting more pain medication for the migraine. Family History: Unchanged from Admission Social History: Unchanged from Admission Past Medical History: Unchanged from Admission Objective Active Medications: Acetaminophen (Tylenol Supp*) 650 mg GA Q4H PRN Reason: FEVER/PAIN Albuterol (Ventolin 2.5 Mg/3 Ml Neb.Margarita*) 2.5 mg INH Q2H PRN Reason: SOB/ WHEEZING Benzonatate (Tessalon Cap*) 200 mg PO TID PRN Reason: COUGH Clonazepam (Klonopin Tab(*)) 0.5 mg PO BID PRN Reason: ANXIETY Fluoxetine HCl (Prozac Cap*) 60 mg PO BEDTIME BERTA Heparin Sodium (Porcine) (Heparin Vial(*)) 5,000 units SUBCUT Q8HR BERTA Hydromorphone HCl (Dilaudid Iv*) 1 mg IV SLOW PU Q4H PRN Reason: PAIN Ceftriaxone Sodium 1,000 mg/ (Sodium Chloride) 50 mls @ 200 mls/hr IVPB Q24H BERAT Azithromycin 500 mg/ Sodium (Chloride) 250 mls @ 250 mls/hr IVPB Q24H BERTA Levothyroxine Sodium (Synthroid Tab*) 50 mcg PO 0600 BERTA Methylprednisolone Sodium Succinate (Solu-Medrol*) 40 mg IV Q8H [facility] Vital Signs 05/23/16 05/23/16 05/23/16 11:51 13:27 16:00 Temperature 97.7 F Pulse Rate 173 114 Respiratory 14 16 18 Rate Blood Pressure 107/88 (mmHg) O2 Sat by Pulse 100 Oximetry 05/23/16 05/23/16 05/23/16 16:21 16:47 16:53 Temperature 98.0 F Pulse Rate 153 84 Respiratory 15 14 16 Rate Blood Pressure 110/64 (mmHg) O2 Sat by Pulse 100 99 Oximetry 05/23/16 05/23/16 05/23/16 20:04 20:08 21:19 Temperature 98.1 F Pulse Rate 77 Respiratory 20 20 Rate Blood Pressure 127/78 (mmHg) O2 Sat by Pulse 100 Oximetry 05/23/16 05/23/16 05/23/16 23:19 23:29 23:57 Temperature 97.8 F Pulse Rate 80 Respiratory 18 18 18 Rate Blood Pressure 122/84 (mmHg) O2 Sat by Pulse 98 Oximetry 05/24/16 05/24/16 05/24/16 00:29 03:31 03:52 Temperature 97.9 F Pulse Rate 91 Respiratory 18 20 18 Rate Blood Pressure 125/82 (mmHg) O2 Sat by Pulse 99 Oximetry 05/24/16 05/24/16 05/24/16 04:31 05:04 07:37 Temperature Pulse Rate 114 Respiratory 20 30 18 Rate Blood Pressure (mmHg) O2 Sat by Pulse 96 Oximetry 05/24/16 05/24/16 05/24/16 07:38 07:55 08:37 Temperature 97.8 F Pulse Rate 108 Respiratory 18 18 Rate Blood Pressure 138/87 (mmHg) O2 Sat by Pulse 98 Oximetry Oxygen Devices in Use Now: None Appearance: NAD, anxious, laying in bed. Eyes: No Scleral Icterus, PERRLA Ears/Nose/Mouth/Throat: NL Teeth, Lips, Gums, Mucous Membranes Moist Neck: NL Appearance and Movements; NL JVP, Trachea Midline Respiratory: Symmetrical Chest Expansion and Respiratory Effort, Clear to Auscultation - , diminished Cardiovascular: NL Sounds; No Murmurs; No JVD, RRR Abdominal: NL Sounds; No Tenderness; No Distention Extremities: No Edema Skin: No Rash or Ulcers Neurological: Alert and Oriented x 3, NL Muscle Strength and Tone Lines/Tubes/Other Access: Clean, Dry and Intact Peripheral IV - site benign Nutrition: Taking PO's Result Diagrams: 05/24/16 06:17 05/23/16 04:33 Additional Lab and Data: Microbiology and Other Data: Microbiology 05/23/16 08:19 Aerobic Blood Culture - Preliminary Blood Venous No Growth Day 1 Anaerobic Blood Culture - Preliminary No Growth Day 1 05/23/16 08:30 Legionella Urinary Antigen - Final Urine Negative Legionella Streptococcus pneumoniae Ag Screen - Final Negative S. pneumo Antigen Assess/Plan/Problems-Billing Assessment: Ms. Gagnon is a 40 yo female with PMH significant for migraines, anxiety, and depression who presented to the emergency room with chest tightness and cough after failing outpatient treatment for pneumonia. - Patient Problems (1) Pneumonia Code(s): J18.9 - PNEUMONIA, UNSPECIFIED ORGANISM SNOMED Code(s): 977225834 Comment: - Bilateral PNA seen on chest xray - C/O chest tightness, CTA chest negative for PE - Urine antigen for legionella and pneumococcal negative - Afebrile for 24 hours, continues to have leukocytosis - Continue Rocephin and Azithromycin (2) Anxiety and depression Current Visit: Yes Status: Acute Code(s): F41.9 - ANXIETY DISORDER, UNSPECIFIED; F32.9 - MAJOR DEPRESSIVE DISORDER, SINGLE EPISODE, UNSPECIFIED SNOMED Code(s): 867583359 Comment: - Pt is anxious today - Continue prozac and Klonopin PRN (3) Migraine Onset Date: 05/06/15 Code(s): G43.909 - MIGRAINE, UNSP, NOT INTRACTABLE, WITHOUT STATUS MIGRAINOSUS SNOMED Code(s): 15340628 Comment: - Pt states this is her typical headache - Continue pain medication (4) DVT prophylaxis Code(s): ZYO3935 - SNOMED Code(s): 124118950 Comment: - SQ Heparin (5) Full code status Code(s): Z78.9 - OTHER SPECIFIED HEALTH STATUS SNOMED Code(s): 535236185 Status and Disposition: Inpatient. Discharge to home when medically stable.
[2016-05-24] MEDS: Azithromycin IV(*) 500 MG in NS 0.9% 250 ML* 250 ML IVPB SCH (10:13)
[2016-05-24] MEDS: GuaiFENesin DM* 5 ML UDC PO PRN ×2 (15:17→20:28)
[2016-05-24] MEDS ORDERED: HYDROmorphone INJ* 1 MG/ML CARPUJECT SYRINGE IV ONE (22:20)
[2016-05-24] MEDS ORDERED: HYDROmorphone INJ* 1 MG/ML CARPUJECT SYRINGE ONE (22:47)
[2016-05-25] MEDS: methylPREDNISolone SOD 40 MG* 1 ML VIAL IV SCH ×3 (00:39→16:58)
[2016-05-25] MEDS: HYDROmorphone INJ* 1 MG/ML CARPUJECT SYRINGE IV SLOW PU PRN ×6 (00:39→22:06)
[2016-05-25] MEDS: GuaiFENesin DM* 5 ML UDC PO PRN ×3 (02:13→20:46)
[2016-05-25] MEDS ORDERED: LORazepam INJ* 2 MG/ML 1 ML VIAL IV PUSH ONE (05:00)
[2016-05-25] MEDS ORDERED: LORazepam INJ* 2 MG/ML 1 ML VIAL ONE (05:04)
[2016-05-25 06:04] LABS: Hematocrit 35 % (35-47); Hemoglobin 11.1 g/dl (12.0-16.0); Mean Corpuscular HGB Conc 32 g/dl (31-36); Mean Corpuscular Hemoglobin 24 pg (27-31); Mean Platelet Volume 10 um3 (7.4-10.4); Red Blood Count 4.68 10^6/ul (4.0-5.4); Red Cell Distribution Width 16 % (10.5-15); White Blood Count 17.2 10^3/ul (3.5-10.8)
[2016-05-25 06:05] LABS: Comments Flag Yes; Mean Corpuscular Volume 74 fL (80-97)
[2016-05-25 06:17] LABS: BUN/Creatinine Ratio 12.7 (8-20); Calcium 9.2 mg/dL (8.6-10.3); EGFR African American 116.7 (>60); EGFR Non-African American 90.7 (>60); Potassium 3.8 mmol/L (3.5-5.0)
[2016-05-25] MEDS: Levothyroxine TAB* 50 MCG TAB PO SCH (08:32)
[2016-05-25] MEDS: Benzonatate CAP* 100 MG PO PRN ×2 (08:32→20:48)
[2016-05-25] MEDS: clonazePAM TAB(*) 0.5 MG PO PRN ×2 (08:33→20:46)
[2016-05-25] MEDS: Heparin VIAL(*) 5000 UNITS/ML VIAL (FIVE THOUSAND) SUBCUT SCH ×3 (08:33→22:10)
[2016-05-25] MEDS: cefTRIAXone VIAL(*) 1,000 MG in NS 0.9% 50 ML* 50 ML IVPB SCH (08:34)
[2016-05-25] MEDS: Azithromycin IV(*) 500 MG in NS 0.9% 250 ML* 250 ML IVPB SCH (09:28)
[2016-05-25] MEDS: Albuterol 2.5 MG/3 ML NEB.SOL* (0.083%) INH PRN (13:47)
[2016-05-25] MEDS: FLUoxetine CAP* 20 MG PO SCH (20:45)
--- NOTE | 2016-05-25 21:31 | PN ---
Subjective Date of Service: 05/25/16 Interval History: Patient seen and examined at bedside. Pt continues to complain of headache, neck pain (headache goes into her neck), shortness of breath, cough, and chest tightness. Denies fever, chills, N/V/D. Family History: Unchanged from Admission Social History: Unchanged from Admission Past Medical History: Unchanged from Admission Objective Active Medications: Acetaminophen (Tylenol Supp*) 650 mg ID Q4H PRN Reason: FEVER/PAIN Albuterol (Ventolin 2.5 Mg/3 Ml Neb.Margarita*) 2.5 mg INH Q2H PRN Reason: SOB/ WHEEZING Benzonatate (Tessalon Cap*) 200 mg PO TID PRN Reason: COUGH Clonazepam (Klonopin Tab(*)) 0.5 mg PO BID PRN Reason: ANXIETY Fluoxetine HCl (Prozac Cap*) 60 mg PO BEDTIME BERTA Guaifenesin/Dextromethorphan (Robitussin Dm*) 10 ml PO Q6H PRN Reason: COUGH Heparin Sodium (Porcine) (Heparin Vial(*)) 5,000 units SUBCUT Q8HR BERTA Hydromorphone HCl (Dilaudid Iv*) 1 mg IV SLOW PU Q4H PRN Reason: PAIN Ceftriaxone Sodium 1,000 mg/ (Sodium Chloride) 50 mls @ 200 mls/hr IVPB Q24H BERTA Azithromycin 500 mg/ Sodium (Chloride) 250 mls @ 250 mls/hr IVPB Q24H BERTA Levothyroxine Sodium (Synthroid Tab*) 50 mcg PO 0600 BERTA Methylprednisolone Sodium Succinate (Solu-Medrol*) 40 mg IV Q8H [facility] Vital Signs 05/24/16 05/24/16 05/25/16 22:33 22:52 00:09 Temperature 98.6 F Pulse Rate 88 Respiratory 22 24 18 Rate Blood Pressure 119/66 (mmHg) O2 Sat by Pulse 99 Oximetry 05/25/16 05/25/16 05/25/16 00:39 01:39 04:51 Temperature Pulse Rate Respiratory 20 24 26 Rate Blood Pressure (mmHg) O2 Sat by Pulse Oximetry 05/25/16 05/25/16 05/25/16 05:38 05:51 06:00 Temperature Pulse Rate 86 Respiratory 26 22 14 Rate Blood Pressure (mmHg) O2 Sat by Pulse 96 Oximetry 02/05/25/16 05/25/16 08:00 08:30 08:33 Temperature 98.4 F Pulse Rate 90 Respiratory 22 14 22 Rate Blood Pressure 115/92 (mmHg) O2 Sat by Pulse 91 Oximetry 05/25/16 05/25/16 05/25/16 08:45 10:33 13:48 Temperature Pulse Rate 74 Respiratory 20 16 20 Rate Blood Pressure (mmHg) O2 Sat by Pulse 97 Oximetry 05/25/16 05/25/16 05/25/16 13:50 14:50 17:28 Temperature 97.4 F Pulse Rate 66 Respiratory 19 16 Rate Blood Pressure 130/104 (mmHg) O2 Sat by Pulse 98 Oximetry 05/25/16 05/25/16 18:12 20:46 Temperature Pulse Rate Respiratory 18 18 Rate Blood Pressure (mmHg) O2 Sat by Pulse Oximetry Oxygen Devices in Use Now: None Appearance: NAD, sitting up in bed Eyes: No Scleral Icterus, PERRLA Ears/Nose/Mouth/Throat: NL Teeth, Lips, Gums, Mucous Membranes Moist Neck: NL Appearance and Movements; NL JVP, Trachea Midline Respiratory: Symmetrical Chest Expansion and Respiratory Effort, - - Lung sounds with wheezing and rhonchi Cardiovascular: NL Sounds; No Murmurs; No JVD, RRR Abdominal: NL Sounds; No Tenderness; No Distention Extremities: No Edema Skin: No Rash or Ulcers Neurological: Alert and Oriented x 3, NL Muscle Strength and Tone Lines/Tubes/Other Access: Clean, Dry and Intact Peripheral IV - site benign Nutrition: Taking PO's Result Diagrams: 05/25/16 05:34 05/25/16 05:34 Additional Lab and Data: Microbiology and Other Data: Microbiology 05/23/16 08:19 Aerobic Blood Culture - Preliminary Blood Venous No Growth Day 1 Anaerobic Blood Culture - Preliminary No Growth Day 1 05/23/16 08:30 Legionella Urinary Antigen - Final Urine Negative Legionella Streptococcus pneumoniae Ag Screen - Final Negative S. pneumo Antigen Assess/Plan/Problems-Billing Assessment: Ms. Gagnon is a 40 yo female with PMH significant for migraines, anxiety, and depression who presented to the emergency room with chest tightness and cough after failing outpatient treatment for pneumonia. - Patient Problems (1) Pneumonia Code(s): J18.9 - PNEUMONIA, UNSPECIFIED ORGANISM SNOMED Code(s): 413326919 Comment: - Bilateral PNA seen on chest xray - C/O chest tightness, CTA chest negative for PE - Urine antigen for legionella and pneumococcal negative - Afebrile for 24 hours, continues to have leukocytosis - Continue steroids, Rocephin and Azithromycin (2) Anxiety and depression Current Visit: Yes Status: Acute Code(s): F41.9 - ANXIETY DISORDER, UNSPECIFIED; F32.9 - MAJOR DEPRESSIVE DISORDER, SINGLE EPISODE, UNSPECIFIED SNOMED Code(s): 918076526 Comment: - Pt is anxious today - Continue prozac and Klonopin PRN (3) Migraine Onset Date: 05/06/15 Code(s): G43.909 - MIGRAINE, UNSP, NOT INTRACTABLE, WITHOUT STATUS MIGRAINOSUS SNOMED Code(s): 56873583 Comment: - Pt states this is her typical headache - Continue pain medication PRN (4) DVT prophylaxis Code(s): EJY4347 - SNOMED Code(s): 797021567 Comment: - SQ Heparin (5) Full code status Code(s): Z78.9 - OTHER SPECIFIED HEALTH STATUS SNOMED Code(s): 970864368 Status and Disposition: Inpatient. Discharge to home when medically stable.
[2016-05-26] MEDS: methylPREDNISolone SOD 40 MG* 1 ML VIAL IV SCH ×2 (00:16→08:55)
[2016-05-26] MEDS ORDERED: LORazepam INJ* 2 MG/ML 1 ML VIAL IV PUSH ONE (00:28)
[2016-05-26] MEDS ORDERED: LORazepam INJ* 2 MG/ML 1 ML VIAL ONE (00:33)
[2016-05-26] MEDS ORDERED: Albuterol 2.5 MG/3 ML NEB.SOL* (0.083%) INH SCH (01:00)
[2016-05-26] MEDS: HYDROmorphone INJ* 1 MG/ML CARPUJECT SYRINGE IV SLOW PU PRN ×2 (01:44→06:07)
[2016-05-26] MEDS ORDERED: HYDROmorphone INJ* 1 MG/ML CARPUJECT SYRINGE IV SLOW PU ONE (02:28)
[2016-05-26] MEDS: GuaiFENesin DM* 5 ML UDC PO PRN (02:54)
[2016-05-26] MEDS: Levothyroxine TAB* 50 MCG TAB PO SCH (06:07)
[2016-05-26] MEDS: Heparin VIAL(*) 5000 UNITS/ML VIAL (FIVE THOUSAND) SUBCUT SCH (06:07)
[2016-05-26 06:27] LABS: Hematocrit 34 % (35-47); Hemoglobin 10.9 g/dl (12.0-16.0); Mean Corpuscular HGB Conc 32 g/dl (31-36); Mean Corpuscular Hemoglobin 24 pg (27-31); Mean Corpuscular Volume 75 fL (80-97); Mean Platelet Volume 10 um3 (7.4-10.4); Red Cell Distribution Width 16 % (10.5-15); White Blood Count 12.7 10^3/ul (3.5-10.8)
[2016-05-26 08:02] VITALS: BP 133/97
[2016-05-26] MEDS: cefTRIAXone VIAL(*) 1,000 MG in NS 0.9% 50 ML* 50 ML IVPB SCH (08:55)
[2016-05-26] MEDS: clonazePAM TAB(*) 0.5 MG PO PRN (08:59)
[2016-05-26] MEDS: Albuterol 2.5 MG/3 ML NEB.SOL* (0.083%) INH PRN (11:31)
[2016-05-26] MEDS ORDERED: Benzonatate CAP* 100 MG PO SCH (14:00)
--- NOTE | 2016-05-26 21:35 | DS ---
LEAVING AGAINST MEDICAL ADVICE DISCHARGE SUMMARY: DATE OF ADMISSION: 05/23/16 DATE OF LEAVING AGAINST MEDICAL ADVICE: 05/26/16 PRIMARY DIAGNOSIS: Pneumonia. SECONDARY DIAGNOSES: Include: 1. Lactic acidosis on presentation, resolved. 2. Microcytic anemia. 3. Respiratory alkalosis. 4. History of major depression disorder. 5. Posttraumatic stress disorder. 6. Intractable migraines. 7. History of suicide attempts. 8. Concern for opioid dependence. HOME MEDICATIONS: Include: 1. Tessalon caps 100 mg 3 times a day as needed for cough. 2. Clonazepam 0.5 mg at bedtime, maximum daily dose of 1. 3. Estradiol 0.5 mg daily. 4. Prozac 60 mg daily. 5. Levothyroxine 50 mcg in the morning. 6. Progesterone 2.5 mg daily. 7. Prednisone 50 mg daily for 5 additional days. 8. Levaquin 750 mg daily for 7 additional days. 9. Robitussin DM 10 mL every 6 hours as needed for cough. 10. Acetaminophen 650 mg every 4 hours as needed for pain or fever. PERTINENT IMAGING PERFORMED DURING HOSPITAL STAY: Chest CTA, impression: No pulmonary or arterial filling defects to suggest pulmonary embolism. Small pericardial effusion. Multifocal airspace disease involving lower lobes bilaterally and left upper lobe. The appearance is suggestive of an infectious or inflammatory process. PERTINENT LABORATORY DATA: Lactic acid on presentation 3.7, decreased to 1.9. BNP 56. White blood cell count on presentation 13.1, on discharge 12.7; 92% neutrophils on steroids; hemoglobin 10.9; platelets 304. ABG on presentation, pH 7.66, PCO2 of 17, partial pressure of oxygen 90. HISTORY OF PRESENT ILLNESS AND HOSPITAL COURSE: This is a 40-year-old female with past medical history as outlined in the history of present illness on the day of admission on 05/23/[address] Angulo, presented to the recent hospital after stay at [facility] [place], discharged on 05/08/16 reported at presentation that she has had increasingly chest tightness and pain associated with nonproductive cough and shortness of breath. She was started on antibiotics per her primary care provider, presented to the hospital when she was not improved on addition of steroids. In the emergency room, she had a CTA of her chest with results as indicated above notable for multifocal pneumonia. She was admitted to the hospital, started on IV steroids as well as ceftriaxone and azithromycin. She had a peak fever of 100.5 on the day of presentation, which was also her last fever. Her leukocytosis increased to 17.2, decreased to 12.7 on the day of discharge, although it is noted she was on continued IV steroids. She did not require oxygen throughout the course of the hospital stay. Notably, there are multiple behavioral disturbances on the hospital floor during the course of her hospital stay. She was threatening the staff to the point where nursing no longer felt comfortable or safe to enter the room without accompaniment of other staff or MD. She at one point threw herself on the floor and refused to get up. She was under the care of one of our nurse practitioners; however, there was disagreement over the quantity of Dilaudid that the patient was receiving and ultimately she was seen in conjunction with this provider and the patient requested that her total care be transitioned to this provider. The patient was seen in the room with her as well as with this provider and nursing, Nicolle Casanova, to discuss plan of care. I discussed with ( at patient's request) and the patient that her pneumonia appeared to be improving based on her absence of fevers, stable leukocytosis, and absent need of oxygen. Plan was to transition her from IV to oral antibiotics with continued monitoring in the hospital for continued improvement. I did discuss that I was concerned that there may be a component of opioid dependence driving the need for such high doses of narcotics and that we would transition her from IV Dilaudid to other nonnarcotic medications. Conversation was held in a closed room only in the care of her nurse and covering nurse practitioner. It was also conducted in conjunction with her whom she granted approval to participate in the conversation. Shortly after the conversation with plan as outlined above, the patient indicated she wanted to leave the hospital. I further discussed that leaving the hospital today would be against medical advice and detailed the risks of leaving including, but not limited to worsening of symptoms, shortness of breath, respiratory failure, loss of consciousness, seizures, severe morbidity or mortality including . The patient, in this author's opinion, does have capacity to make this decision. Prescriptions for continuing antibiotics and steroids were sent to a pharmacy of her choosing prior to discharge. Of note, review of her most recent hospital stay at [facility] [place] at the beginning of this month indicates difficult to control headache. She was seen in consultation with this hospitalist as well as the hospitalist service and Neurology. There was concern at that point as well for opioid dependence. Conversations were held with the patient's primary care office who also expressed concern for opioid dependence. Review of [facility] indicates short-term supplies of narcotics including Dilaudid with last refills this month for 4, 8, and 6 days on filled on different days provided by the emergency room as well as her primary care provider's office with the last being filled on the of this month. Again, I expressed to and the patient that continued hospital stay would benefit for continued monitoring of her pneumonia and continued symptoms. They declined this offer and are opting to leave the hospital at this point against medical advice. All questions were answered. Further opportunities for questions were given and declined. Reasons to return to the hospital including, but not limited to recurrent or worsening symptoms, difficulty breathing, shortness of breath, cough, fevers, chest pain, nausea, vomiting, lightheadedness, loss of conscious, near loss of consciousness, bleeding from any source, inability to obtain or tolerate medications were discussed with the patient and her and they acknowledged understanding. TIME SPENT: Greater than 75 minutes was spent in the discharge of this patient , greater than half was spent [id number] with the patient. [id number]/CPS #: [id number] BENJA
[2016-05-27] MEDS ORDERED: predniSONE TAB* 50 MG PO SCH (09:00)
== END 2016-05-26 12:24 | disposition left against medical advice (07) | DRG 194 ==
LOC: ED 02:44 → MED 07:00
PROVIDERS: ADMIT Internal Medicine; ATTEND Internal Medicine
DX: J18.9 Pneumonia, unspecified organism (principal); E87.2 Acidosis; I31.3 Pericardial effusion (noninflammatory); E87.3 Alkalosis; F11.20 Opioid dependence, uncomplicated; D50.9 Iron deficiency anemia, unspecified; F32.9 Major depressive disorder, single episode, unspecified; F43.10 Post-traumatic stress disorder, unspecified; G43.919 Migraine, unspecified, intractable, without status migrainosus; F41.9 Anxiety disorder, unspecified; Z88.8 Allergy status to other drugs, medicaments and biological substances; Z81.8 Family history of other mental and behavioral disorders; Z80.6 Family history of leukemia; E03.9 Hypothyroidism, unspecified; I10 Essential (primary) hypertension
CPT/HCPCS: 36415; 36600; 71020; 71275; 80048; 80053; 82803; 83605; 83880; 85025; 85379; 87040; 87899; 93005; 94640; 94760; A9270-GY; J0456; J0696; J1170; J1644; J1885; J2060; J2405; J2920; Q9967

== ENCOUNTER 2016-08-23 14:20 | Emergency (ER) | payer MEDICARE ==
[2016-08-23 14:35] VITALS: BP 136/97
== END 2016-08-23 16:05 | disposition left against medical advice (07) ==
LOC: ED 14:20
DX: R11.10 Vomiting, unspecified (principal); Z53.21 Procedure and treatment not carried out due to patient leaving prior to being seen by health care provider

== ENCOUNTER → 2016-08-23 17:39 | Emergency (ER) | payer MEDICARE ==
[~2016-08-23 17:39] MED LIST changes: +HYDROmorphone* 1 MG/ML 1 ML SYR IV ONE; +HYDROmorphone* 1 MG/ML 1 ML SYR IV SLOW PU ONE; -NS 0.9% 1000 ML* 1,000 ML IV ONE; +NS 0.9% 1000 ML* 2,000 ML IV ONE; +Ondansetron INJ* 2 MG/ML VIAL IV ONE
[2016-08-23 19:32] VITALS: BP 138/83
[2016-08-23 20:41] LABS: Hematocrit 39 % (35-47); Hemoglobin 12.7 g/dl (12.0-16.0); Mean Corpuscular HGB Conc 32 g/dl (31-36); Mean Corpuscular Hemoglobin 25 pg (27-31); Mean Corpuscular Volume 77 fL (80-97); Mean Platelet Volume 9 um3 (7.4-10.4); Red Blood Count 5.09 10^6/ul (4.0-5.4); Red Cell Distribution Width 17 % (10.5-15); White Blood Count 7.4 10^3/ul (3.5-10.8)
[2016-08-23 20:56] LABS: Albumin 4.1 g/dL (3.2-5.2); BUN/Creatinine Ratio 14.1 (8-20); Calcium 9.3 mg/dL (8.6-10.3); EGFR African American 116.1 (>60); EGFR Non-African American 90.3 (>60); Globulin 2.8 g/dL (2-4); Potassium 3.4 mmol/L (3.5-5.0); Total Bilirubin 0.3 mg/dL (0.2-1.0); Total Protein 6.9 g/dL (6.4-8.9)
--- NOTE | 2016-08-23 21:29 | ED ---
Renetta Ching Rebecca, scribed for Rosi Parra MD on 08/23/16 at 2015 . Headache - HPI Summary HPI Summary: Pt is a 41 y/o F who presents to ED for the second time today after she LWBS c/ o BURGER. BURGER began suddenly today after a spinal infusion and has been constant since onset. Pain is diffuse with radiation to the neck and characterized as sharp and spasmodic. Pain is currently severe, ranked 10/10. Sx aggravated and alleviated by nothing. Additionally c/o N/V. Pt was seen by Dr. Dukes today after falling in her bath tub a few weeks ago, resulting in back pain. The pt received spinal infusions to try to alleviate the back pain/stiffness, which triggered the onset of the current BURGER. PMHx migraines. Typically treated with Dilaudid. - History Of Current Complaint Chief Complaint: EDHeadache Stated Complaint: HEADACHE/VOMITING Time Seen by Provider: 08/23/16 20:00 Hx Obtained From: Patient Onset/Duration: Sudden Onset, Still Present Initially Headache Was: Moderate Currently Pain Is: Current Pain Scale(0-10)= - 10/10, Severe Timing: Constant Character: Migraine - Sharp and spasmodic Location of Headache: Diffuse Radiates to: Neck Aggravating Factor: Nothing Allevating Factors: Nothing Associated Signs And Symptoms: Nausea, Vomiting - Allergies/Home Medications Allergies/Adverse Reactions: Allergies Allergy/AdvReac Type Severity Reaction Status Date / Time Metoclopramide [From Reglan] Allergy Severe Anaphylatic Verified 05/08/16 15:32 Shock Prochlorperazine Allergy Severe CAUSES Verified 05/08/16 15:32 [From Compazine] PARALYSIS Promethazine Allergy Severe distonic Verified 05/08/16 15:32 Tramadol [From Ultram] Allergy Severe Anaphylatic Verified 05/08/16 15:32 Shock, MAKES HEADACHE WORSE Haloperidol [From Haldol] Allergy Anxiety Verified 05/08/16 15:32 Hydralazine AdvReac Intermediate Headache Verified 05/08/16 15:32 Sumatriptan [From Imitrex] AdvReac Intermediate MAKES Verified 05/08/16 15:32 HEADACHES WORSE PMH/Surg Hx/FS Hx/Imm Hx Endocrine/Hematology History: Reports: Hx Thyroid Disease - hypothyroidism, Hx Anemia - during and after of child- NO PROBLEMS NOW Denies: Hx Diabetes Cardiovascular History: Reports: Hx Hypertension - control with meds, Other Cardiovascular Problems/Disorders - Pulmonary heart edema after child Denies: Hx Congestive Heart Failure, Hx Pacemaker/ICD Respiratory History: Reports: Hx Pulmonary Edema - after child 2013, denies problems since, Hx Seasonal Allergies, Other Respiratory Problems/ Disorders - HAD PULMONARY EDEMA WHILE , WAS IN ICU for 1 week after csection Denies: Hx Asthma, Hx Chronic Obstructive Pulmonary Disease (COPD) GI History: Reports: Other GI Disorders - Gi problems related to pain which causes proj emesis- WITH MIGRAINES History: Denies: Hx Renal Disease Musculoskeletal History: Reports: Other Musculoskeletal History - Carpal tunnel of both hands Denies: Hx Rheumatoid Arthritis, Hx Osteoporosis Sensory History: Reports: Hx Contacts or Glasses Denies: Hx Hearing Aid Opthamlomology History: Reports: Hx Contacts or Glasses Neurological History: Reports: Hx Migraine - FREQUENTLY, Hx Seizures - when in her 20's reports 2-none since, Other Neuro Impairments/Disorders - 2013 numbness in legs DURING - release after csection Psychiatric History: Reports: Hx Anxiety, Hx Depression - CONTROL WITH MEDS, Hx Community Mental Health Tx, Hx Suicide Attempt - Denies but is here for ' accidental overdose on prescription medications', Other Psychiatric Issues/ Disorders Denies: Hx Eating Disorder, Hx Panic Disorder, Hx of Violent Episodes Against Others - Surgical History Surgery Procedure, Year, and Place: 1989 TONSILLECTOMY, [place]. 2000 MYOMECTOMY , [facility]. 2012 IVF, [place]. 2013 CSECTION, [facility]. 2016-LEFT WRIST CARPAL TUNNEL RELEASE-MIGRAINE FOLLOWING SURGERY Hx Anesthesia Reactions: Yes - 2000-trouble waking up, had to be put back under x 2, epidural did not work - Immunization History Date of Tetanus Vaccine: Up to date Date of Influenza Vaccine: None for Fall 2012 Infectious Disease History: No Infectious Disease History: Denies: Hx Hepatitis, Hx Human Immunodeficiency Virus (HIV), Traveled Outside the [place] in Last 30 Days - Family History Known Family History: Positive: Other - mother: bipolar disorder; depression: grandmother, uncle - Social History Lives: With Family Alcohol Use: None Hx Substance Use: No Substance Use Type: Reports: None Substance Use Comment - Amount & Last Used: None confirmed by patient Hx Tobacco Use: No Smoking Status (MU): Never Smoked Tobacco Review of Systems Positive: Vomiting, Nausea Positive: Headache All Other Systems Reviewed And Are Negative: Yes Physical Exam - Summary Physical Exam Summary: General: Well appearing, no pain distress Skin: Warm, Skin Color Reflects Adequate Perfusion, Dry Eyes: EOMI, JOSUE ENT: Pharynx normal, TMs normal Neck: Supple, nontender Respiratory: CTA, breath sounds present, no rhonchi, no wheezes, no rales Cardiovascular: RRR, no murmur, no rub, no gallop Abdomen: Soft, nontender, Non-distended, no guarding, no rebound Bowel: Present Musculoskeletal: ELEANOR, No edema Neuro: Sensory/motor intact, A&Ox3, CN intact 2-12 Psych: Affect/mood appropriate Triage Information Reviewed: Yes Vital Signs On Initial Exam: Initial Vitals Temp Pulse Resp BP Pulse Ox 97.9 F 119 20 141/91 96 08/23/16 17:43 08/23/16 17:43 08/23/16 17:43 08/23/16 17:43 08/23/16 17:43 Vital Signs Reviewed: Yes Diagnostics - Vital Signs Vital Signs Temp Pulse Resp BP Pulse Ox 08/23/16 19:29 98.1 F 134 18 138/83 100 08/23/16 17:46 98.9 F 133 20 141/91 100 08/23/16 17:43 97.9 F 119 20 141/91 96 - Laboratory Lab Results: Lab Results 08/23/16 08/23/16 08/23/16 Range/Units 20:30 20:30 20:30 WBC 7.4 (3.5-10.8) 10^3/ul RBC 5.09 (4.0-5.4) 10^6/ul Hgb 12.7 (12.0-16.0) g/dl Hct 39 (35-47) % MCV 77 L (80-97) fL MCH 25 L (27-31) pg MCHC 32 (31-36) g/dl RDW 17 H (10.5-15) % Plt Count 250 (150-450) 10^3/ul MPV 9 (7.4-10.4) um3 Neut % (Auto) 57.7 (38-83) % Lymph % (Auto) 30.4 (25-47) % [place] % (Auto) 5.7 (1-9) % Eos % (Auto) 5.1 (0-6) % Baso % (Auto) 1.1 (0-2) % Absolute Neuts (auto) 4.3 (1.5-7.7) 10^3/ul Absolute Lymphs (auto) 2.3 (1.0-4.8) 10^3/ul Absolute Monos (auto) 0.4 (0-0.8) 10^3/ul Absolute Eos (auto) 0.4 (0-0.6) 10^3/ul Absolute Basos (auto) 0.1 (0-0.2) 10^3/ul Absolute Nucleated RBC 0 10^3/ul Nucleated RBC % 0.1 Sodium 138 (133-145) mmol/L Potassium 3.4 L (3.5-5.0) mmol/L Chloride 106 (101-111) mmol/L Carbon Dioxide 25 (22-32) mmol/L Anion Gap 7 (2-11) mmol/L BUN 10 (6-24) mg/dL Creatinine 0.71 (0.51-0.95) mg/dL Est GFR ( Amer) 116.1 (>60) Est GFR (Non-Af Amer) 90.3 (>60) BUN/Creatinine Ratio 14.1 (8-20) Glucose 91 (70-100) mg/dL Lactic Acid 0.9 (0.5-2.0) mmol/L Calcium 9.3 (8.6-10.3) mg/dL Total Bilirubin 0.30 (0.2-1.0) mg/dL AST 11 L (13-39) U/L ALT 9 (7-52) U/L Alkaline Phosphatase 61 (34-104) U/L Total Protein 6.9 (6.4-8.9) g/dL Albumin 4.1 (3.2-5.2) g/dL Globulin 2.8 (2-4) g/dL Albumin/Globulin Ratio 1.5 (1-3) Result Diagrams: 08/23/16 20:30 08/23/16 20:30 Lab Statement: Any lab studies that have been ordered have been reviewed, and results considered in the medical decision making process. Headache Course/Dx - Course Course Of Treatment: 41 yo female with migraines seen today at the pain clinic and received what she called superficial injections over her spine to help with pain over back after falling in the tub, the injections started a migraine and the pt threw up the dilaudid and zofran she has at home tohelp with thispain. She was given 2 doses of IV pain meds here and 2 doses of po meds at her pharmacy. Of note pt is tachycardic which she says her baseline - Diagnoses Provider Diagnoses: Migraine Discharge - Discharge Plan Condition: Stable Disposition: HOME Prescriptions: HYDROmorphone TAB* [Dilaudid TAB*] 2 mg PO Q4H PRN #4 tab MDD 2 PRN Reason: Pain Ondansetron TAB* [Zofran 4 MG Tab*] 4 mg PO Q6H PRN #10 tab PRN Reason: Nausea Patient Education Materials: Migraine Headache (ED) Referrals: Itzel Landeros MD [Primary Care Provider] - 2 Days The documentation as recorded by the Renetta bolanos Rebecca accurately reflects the service I personally performed and the decisions made by me, Rosi Parra MD.
== END | disposition home or self-care (01) ==
LOC: ED 17:39
DX: G43.909 Migraine, unspecified, not intractable, without status migrainosus (principal); R51 Headache; R11.2 Nausea with vomiting, unspecified
CPT/HCPCS: 36415; 80053; 83605; 85025; 93005; 96374; 96375; 99285; J1170; J2405

== ENCOUNTER 2016-10-05 16:11 | Emergency (ER) | payer MEDICARE ==
[2016-10-05] MEDS ORDERED: NS 0.9% 1000 ML* 2,000 ML IV ONE (16:33)
[2016-10-05] MEDS ORDERED: HYDROmorphone* 1 MG/ML 1 ML SYR IV ONE ×2 (16:33→18:08)
[2016-10-05] MEDS ORDERED: Ondansetron INJ* 2 MG/ML VIAL IV ONE ×2 (16:33→18:08)
[2016-10-05 17:06] LABS: Hematocrit 39 % (35-47); Hemoglobin 12.7 g/dl (12.0-16.0); Mean Corpuscular HGB Conc 33 g/dl (31-36); Mean Corpuscular Hemoglobin 25 pg (27-31); Mean Corpuscular Volume 77 fL (80-97); Mean Platelet Volume 10 um3 (7.4-10.4); Red Blood Count 5.05 10^6/ul (4.0-5.4); Red Cell Distribution Width 16 % (10.5-15); White Blood Count 6.5 10^3/ul (3.5-10.8)
[2016-10-05 17:08] LABS: Urine Bilirubin Negative (Negative); Urine Glucose Negative (Negative); Urine Nitrite Negative (Negative)
[2016-10-05 17:21] LABS: ALT 10 U/L (7-52); Alkaline Phosphatase 60 U/L (34-104); Blood Urea Nitrogen 9 mg/dL (6-24); C Reactive Protein 2.52 mg/L (< 5.00); CO2 Carbon Dioxide 25 mmol/L (22-32); Calcium 9.3 mg/dL (8.6-10.3); Chloride 106 mmol/L (101-111); Creatine Kinase 49 U/L (10-223); EGFR Non-African American 84.7 (>60); Glucose 87 mg/dL (70-100); Lipase 41 U/L (11.0-82.0); Magnesium 2.3 mg/dL (1.9-2.7); Sodium 137 mmol/L (133-145)
--- NOTE | 2016-10-05 17:26 | RAD ---
Indication: Syncope. Single frontal view of the chest performed at 1647 hours was reviewed. Comparison is made with previous exam dated May 22, 2016. No mediastinal shift is noted. Heart is of normal size and configuration. Lung landrum appear clear. IMPRESSION: NO ACTIVE CARDIOPULMONARY DISEASE IS NOTED.
[2016-10-05 17:30] LABS: Anion Gap 6 mmol/L (2-11)
[2016-10-05 17:42] LABS: Acetaminophen < 15 mcg/mL; Alcohol < 10 mg/dL (<10)
[2016-10-05 17:53] LABS: TSH (Thyroid Stimulating Horm) 2.71 mcIU/mL (0.34-5.60)
--- NOTE | 2016-10-05 18:40 | ED ---
Renetta Ching Rebecca, scribed for Boy Montero MD on 10/05/16 at 1629 . Syncope/Near Syncope - HPI Summary HPI Summary: Pt is a 41 y/o F BIBA who presents to ED s/p 2 episodes of LOC. Pt reports that she had been cleaning the house, proceeded to lay down at approximately 1330 and once she put her head back, she had an episode of LOC. She had gone to the bathroom to get a drink of water and while kneeling she had another episode of LOC. Denies any head trauma. Sx aggravated by nothing, alleviated by spontaneous resolution. Additionally c/o diaphoresis and palpitations occurring concurrently with episodes of LOC. C/o BURGER and nausea s/p episodes of LOC with BURGER being characterized as her typical migraine and began at 1600. Denies CP, diarrhea and blood in stool. No recent illness. PMHx migraines. - History Of Current Complaint Chief Complaint: EDSyncope Time Seen by Provider: 10/05/16 16:16 Hx Obtained From: Patient Onset/Duration: Resolved Timing: Intermittent Episode Lasting - 2 episodes Context: Loss Of Consciousness Activity At Onset: At Rest Aggravating Factor(s): Nothing Alleviating Factor(s): Spontaneous Resolution Associated Signs And Symptoms: Diaphoresis, Headache - typical migraine s/p LOC , Palpitations, Other - Nausea Frequency: Episodes x___ - 2 episodes - Allergies/Home Medications Allergies/Adverse Reactions: Allergies Allergy/AdvReac Type Severity Reaction Status Date / Time Metoclopramide [From Reglan] Allergy Severe Anaphylatic Verified 05/08/16 15:32 Shock Prochlorperazine Allergy Severe CAUSES Verified 05/08/16 15:32 [From Compazine] PARALYSIS Promethazine Allergy Severe distonic Verified 05/08/16 15:32 Tramadol [From Ultram] Allergy Severe Anaphylatic Verified 05/08/16 15:32 Shock, MAKES HEADACHE WORSE Haloperidol [From Haldol] Allergy Anxiety Verified 05/08/16 15:32 Hydralazine AdvReac Intermediate Headache Verified 05/08/16 15:32 Sumatriptan [From Imitrex] AdvReac Intermediate MAKES Verified 05/08/16 15:32 HEADACHES WORSE PMH/Surg Hx/FS Hx/Imm Hx Endocrine/Hematology History: Reports: Hx Thyroid Disease - hypothyroidism, Hx Anemia - during and after of child- NO PROBLEMS NOW Denies: Hx Diabetes Cardiovascular History: Reports: Hx Hypertension - control with meds, Other Cardiovascular Problems/Disorders - Pulmonary heart edema after child Denies: Hx Congestive Heart Failure, Hx Pacemaker/ICD Respiratory History: Reports: Hx Pulmonary Edema - after child 2013, denies problems since, Hx Seasonal Allergies, Other Respiratory Problems/ Disorders - HAD PULMONARY EDEMA WHILE , WAS IN ICU for 1 week after csection Denies: Hx Asthma, Hx Chronic Obstructive Pulmonary Disease (COPD) GI History: Reports: Other GI Disorders - Gi problems related to pain which causes proj emesis- WITH MIGRAINES History: Denies: Hx Renal Disease Musculoskeletal History: Reports: Other Musculoskeletal History - Carpal tunnel of both hands Denies: Hx Rheumatoid Arthritis, Hx Osteoporosis Sensory History: Reports: Hx Contacts or Glasses Denies: Hx Hearing Aid Opthamlomology History: Reports: Hx Contacts or Glasses Neurological History: Reports: Hx Migraine - FREQUENTLY, Hx Seizures - when in her 20's reports 2-none since, Other Neuro Impairments/Disorders - 2013 numbness in legs DURING - release after csection Psychiatric History: Reports: Hx Anxiety, Hx Depression - CONTROL WITH MEDS, Hx Community Mental Health Tx, Hx Suicide Attempt - Denies but is here for ' accidental overdose on prescription medications', Other Psychiatric Issues/ Disorders Denies: Hx Eating Disorder, Hx Panic Disorder, Hx of Violent Episodes Against Others - Surgical History Surgery Procedure, Year, and Place: 1989 TONSILLECTOMY, [place]. 2000 MYOMECTOMY , [facility]. 2012 IVF, [place]. 2013 CSECTION, [facility] [place]. 2016-LEFT WRIST CARPAL TUNNEL RELEASE-MIGRAINE FOLLOWING SURGERY Hx Anesthesia Reactions: Yes - 2000-trouble waking up, had to be put back under x 2, epidural did not work - Immunization History Date of Tetanus Vaccine: Up to date Date of Influenza Vaccine: None for Fall 2012 Infectious Disease History: Denies: Hx Hepatitis, Hx Human Immunodeficiency Virus (HIV) - Family History Known Family History: Positive: Other - mother: bipolar disorder; depression: grandmother, uncle - Social History Alcohol Use: None Hx Substance Use: No Substance Use Type: Reports: None Substance Use Comment - Amount & Last Used: None confirmed by patient Hx Tobacco Use: No Smoking Status (MU): Never Smoked Tobacco Review of Systems Positive: Skin Diaphoresis Positive: Palpitations. Negative: Chest Pain Positive: Nausea, Other - Denies blood in stool. Negative: Diarrhea Positive: Headache - typical migaine s/p LOC, Syncope - 2 episodes of positive LOC All Other Systems Reviewed And Are Negative: Yes Physical Exam - Summary Physical Exam Summary: General: well-appearing, appears to be in a moderate amount of pain Skin: warm, skin color reflects adequate perfusion, dry Head: normal Eyes: EOMI, JOSUE ENT: normal Neck: supple, nontender Respiratory: CTA, breath sounds present Cardiovascular: Tachycardic Abdomen: soft, nontender Bowel: present Musculoskeletal: normal, strength/ROM intact Neuro: normal, sensory/motor intact, A&O x3, no neurological deficits Psych: anxious Triage Information Reviewed: Yes Vital Signs On Initial Exam: Initial Vitals BP 116/83 10/05/16 16:19 Vital Signs Reviewed: Yes Diagnostics - Vital Signs Vital Signs Temp Pulse Resp BP Pulse Ox 10/05/16 18:14 18 10/05/16 17:37 21 129/76 10/05/16 17:04 97.5 F 84 16 112/62 100 10/05/16 17:00 92 18 112/62 100 10/05/16 16:55 16 10/05/16 16:30 98 14 124/84 98 10/05/16 16:21 105 15 100 10/05/16 16:19 116/83 - Laboratory Lab Results: Lab Results 10/05/16 10/05/16 10/05/16 Range/Units 16:55 16:55 16:55 WBC 6.5 (3.5-10.8) 10^3/ul RBC 5.05 (4.0-5.4) 10^6/ul Hgb 12.7 (12.0-16.0) g/dl Hct 39 (35-47) % MCV 77 L (80-97) fL MCH 25 L (27-31) pg MCHC 33 (31-36) g/dl RDW 16 H (10.5-15) % Plt Count 215 (150-450) 10^3/ul MPV 10 (7.4-10.4) um3 Neut % (Auto) 60.3 (38-83) % Lymph % (Auto) 27.9 (25-47) % Hale % (Auto) 6.2 (1-9) % Eos % (Auto) 4.8 (0-6) % Baso % (Auto) 0.8 (0-2) % Absolute Neuts (auto) 3.9 (1.5-7.7) 10^3/ul Absolute Lymphs (auto) 1.8 (1.0-4.8) 10^3/ul Absolute Monos (auto) 0.4 (0-0.8) 10^3/ul Absolute Eos (auto) 0.3 (0-0.6) 10^3/ul Absolute Basos (auto) 0.1 (0-0.2) 10^3/ul Absolute Nucleated RBC 0 10^3/ul Nucleated RBC % 0 INR (Anticoag Therapy) 0.86 L (0.89-1.11) APTT 30.4 (26.0-36.3) seconds Sodium 137 (133-145) mmol/L Potassium TNP Chloride 106 (101-111) mmol/L Carbon Dioxide 25 (22-32) mmol/L Anion Gap 6 (2-11) mmol/L BUN 9 (6-24) mg/dL Creatinine 0.75 (0.51-0.95) mg/dL Est GFR ( Amer) 109.0 (>60) Est GFR (Non-Af Amer) 84.7 (>60) BUN/Creatinine Ratio 12.0 (8-20) Glucose 87 (70-100) mg/dL Lactic Acid (0.5-2.0) mmol/L Calcium 9.3 (8.6-10.3) mg/dL Magnesium 2.3 (1.9-2.7) mg/dL Total Bilirubin 0.30 (0.2-1.0) mg/dL AST TNP ALT 10 (7-52) U/L Alkaline Phosphatase 60 (34-104) U/L Total Creatine Kinase 49 (10-223) U/L CK-MB (CK-2) 0.7 (0.6-6.3) ng/mL Troponin I 0.00 (<0.04) ng/mL C-Reactive Protein 2.52 (< 5.00) mg/L Total Protein 7.0 (6.4-8.9) g/dL Albumin 4.0 (3.2-5.2) g/dL Globulin 3.0 (2-4) g/dL Albumin/Globulin Ratio 1.3 (1-3) Lipase 41 (11.0-82.0) U/L TSH 2.71 (0.34-5.60) mcIU/mL Beta HCG, Quant 6.33 mIU/mL Urine Color Urine Appearance Urine pH (5-9) Ur Specific [place] (1.010-1.030) Urine Protein (Negative) Urine Ketones (Negative) Urine Blood (Negative) Urine Nitrate (Negative) Urine Bilirubin (Negative) Urine Urobilinogen (Negative) Ur Leukocyte Esterase (Negative) Urine Glucose (Negative) Acetaminophen < 15 mcg/mL Serum Alcohol < 10 (<10) mg/dL 10/05/16 10/05/16 10/05/16 Range/Units 16:55 16:55 17:36 WBC (3.5-10.8) 10^3/ul RBC (4.0-5.4) 10^6/ul Hgb (12.0-16.0) g/dl Hct (35-47) % MCV (80-97) fL MCH (27-31) pg MCHC (31-36) g/dl RDW (10.5-15) % Plt Count (150-450) 10^3/ul MPV (7.4-10.4) um3 Neut % (Auto) (38-83) % Lymph % (Auto) (25-47) % Hale % (Auto) (1-9) % Eos % (Auto) (0-6) % Baso % (Auto) (0-2) % Absolute Neuts (auto) (1.5-7.7) 10^3/ul Absolute Lymphs (auto) (1.0-4.8) 10^3/ul Absolute Monos (auto) (0-0.8) 10^3/ul Absolute Eos (auto) (0-0.6) 10^3/ul Absolute Basos (auto) (0-0.2) 10^3/ul Absolute Nucleated RBC 10^3/ul Nucleated RBC % INR (Anticoag Therapy) (0.89-1.11) APTT (26.0-36.3) seconds Sodium (133-145) mmol/L Potassium 3.8 Chloride (101-111) mmol/L Carbon Dioxide (22-32) mmol/L Anion Gap (2-11) mmol/L BUN (6-24) mg/dL Creatinine (0.51-0.95) mg/dL Est GFR ( Amer) (>60) Est GFR (Non-Af Amer) (>60) BUN/Creatinine Ratio (8-20) Glucose (70-100) mg/dL Lactic Acid 1.0 (0.5-2.0) mmol/L Calcium (8.6-10.3) mg/dL Magnesium (1.9-2.7) mg/dL Total Bilirubin (0.2-1.0) mg/dL AST 13 ALT (7-52) U/L Alkaline Phosphatase (34-104) U/L Total Creatine Kinase (10-223) U/L CK-MB (CK-2) (0.6-6.3) ng/mL Troponin I (<0.04) ng/mL C-Reactive Protein (< 5.00) mg/L Total Protein (6.4-8.9) g/dL Albumin (3.2-5.2) g/dL Globulin (2-4) g/dL Albumin/Globulin Ratio (1-3) Lipase (11.0-82.0) U/L TSH (0.34-5.60) mcIU/mL Beta HCG, Quant mIU/mL Urine Color Colorless Urine Appearance Clear Urine pH 7.0 (5-9) Ur Specific [place] 1.003 L (1.010-1.030) Urine Protein Negative (Negative) Urine Ketones Negative (Negative) Urine Blood Negative (Negative) Urine Nitrate Negative (Negative) Urine Bilirubin Negative (Negative) Urine Urobilinogen Negative (Negative) Ur Leukocyte Esterase Negative (Negative) Urine Glucose Negative (Negative) Acetaminophen mcg/mL Serum Alcohol (<10) mg/dL Result Diagrams: 10/05/16 16:55 10/05/16 17:36 Lab Statement: Any lab studies that have been ordered have been reviewed, and results considered in the medical decision making process. - Radiology CXR Xray Interpretation: No Acute Changes - NO ACTIVE CARDIOPULMONARY DISEASE IS NOTED. Radiology Interpretation Completed By: Radiologist - EKG 7311 Cardiac Rate: NL - 80 bpm EKG Rhythm: Sinus Rhythm ST Segment: Normal Ectopy: None Re-Evaluation - Re-Evaluation First Eval Re-Evaluation Time: 18:02 Comment: Discussed lab, CXR and EKG results with pt. Course/Dx Course Of Treatment: NO CRITICAL CARE TIME. NO SYNCOPE IN ED. GIVEN NS 2L, ZOFRAN 4MG IV X 2 AND DILAUDID 1MG ONCE AND 2MG ONCE. DISCHARGE HOME STABLE. - Diagnoses Provider Diagnoses: Syncope, Headache Discharge - Discharge Plan Condition: Stable Disposition: HOME Patient Education Materials: Syncope (ED), General Headache (ED) Referrals: Itzel Landeros MD [Primary Care Provider] - Additional Instructions: FOLLOW UP WITH YOUR DOCTOR. RETURN TO THE EMERGENCY DEPARTMENT FOR ANY WORSENING OF YOUR CONDITION OR QUESTIONS OR CONCERNS. The documentation as recorded by the Renetta bolanos Rebecca accurately reflects the service I personally performed and the decisions made by me, Boy Montero MD.
[2016-10-05 18:58] VITALS: BP 119/78
== END 2016-10-05 18:58 | disposition home or self-care (01) ==
LOC: ED 16:11
DX: R55 Syncope and collapse (principal); R51 Headache; R00.2 Palpitations; R11.0 Nausea
CPT/HCPCS: 36415; 71010; 80053; 80320; 80329; 81003; 82550; 82553; 83605; 83690; 83735; 84443; 84484; 84702; 85025; 85610; 85730; 86140; 93005; 99282; G0480; J1170; J2405

== ENCOUNTER 2016-11-30 17:54 | Emergency (ER) | payer MEDICARE ==
[2016-11-30] MEDS ORDERED: Ondansetron ODT TAB* 4 MG PO ONE ×2 (18:28→20:00)
[2016-11-30] MEDS ORDERED: LORazepam TAB(*) 1 MG PO ONE (18:29)
[2016-11-30] MEDS ORDERED: HYDROmorphone TAB* 2 MG PO ONE ×2 (18:29→19:59)
[2016-11-30 20:13] VITALS: BP 139/92
--- NOTE | 2016-11-30 20:44 | ED ---
Nuno Ching Alfonso, scribed for Matt Ledbetter MD on 11/30/16 at 1834 . 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 She reports she is allergic to marijuana smoke and walked past a group of smokers. The patient rates the pain 0 /10 in severity. Symptoms aggravated by marijuana smoke. Symptoms alleviated by nothing. Patient reports migraine (left mandaen), SOB, nausea, vomiting, face burning, and closed left eye. 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 - Allergies/Home Medications Allergies/Adverse Reactions: Allergies Allergy/AdvReac Type Severity Reaction Status Date / Time Metoclopramide [From Reglan] Allergy Severe Anaphylatic Verified 05/08/16 15:32 Shock Prochlorperazine Allergy Severe CAUSES Verified 05/08/16 15:32 [From Compazine] PARALYSIS Promethazine Allergy Severe distonic Verified 05/08/16 15:32 Tramadol [From Ultram] Allergy Severe Anaphylatic Verified 05/08/16 15:32 Shock, MAKES HEADACHE WORSE Haloperidol [From Haldol] Allergy Anxiety Verified 05/08/16 15:32 Hydralazine AdvReac Intermediate Headache Verified 05/08/16 15:32 Sumatriptan [From Imitrex] AdvReac Intermediate MAKES Verified 05/08/16 15:32 HEADACHES WORSE PMH/Surg Hx/FS Hx/Imm Hx Endocrine/Hematology History: Reports: Hx Thyroid Disease - hypothyroidism, Hx Anemia - during and after of child- NO PROBLEMS NOW Denies: Hx Diabetes Cardiovascular History: Reports: Hx Hypertension - control with meds, Other Cardiovascular Problems/Disorders - Pulmonary heart edema after child Denies: Hx Congestive Heart Failure, Hx Pacemaker/ICD Respiratory History: Reports: Hx Pulmonary Edema - after child 2013, denies problems since, Hx Seasonal Allergies, Other Respiratory Problems/ Disorders - HAD PULMONARY EDEMA WHILE , WAS IN ICU for 1 week after csection Denies: Hx Asthma, Hx Chronic Obstructive Pulmonary Disease (COPD) GI History: Reports: Other GI Disorders - Gi problems related to pain which causes proj emesis- WITH MIGRAINES History: Denies: Hx Renal Disease Musculoskeletal History: Reports: Other Musculoskeletal History - Carpal tunnel of both hands Denies: Hx Rheumatoid Arthritis, Hx Osteoporosis Sensory History: Reports: Hx Contacts or Glasses Denies: Hx Hearing Aid Opthamlomology History: Reports: Hx Contacts or Glasses Neurological History: Reports: Hx Migraine - FREQUENTLY, Hx Seizures - when in her 20's reports 2-none since, Other Neuro Impairments/Disorders - 2013 numbness in legs DURING - release after csection Psychiatric History: Reports: Hx Anxiety, Hx Depression - CONTROL WITH MEDS, Hx Community Mental Health Tx, Hx Suicide Attempt - Denies but is here for ' accidental overdose on prescription medications', Other Psychiatric Issues/ Disorders Denies: Hx Eating Disorder, Hx Panic Disorder, Hx of Violent Episodes Against Others - Surgical History Surgery Procedure, Year, and Place: 1989 TONSILLECTOMY, [place]. 2000 MYOMECTOMY , [facility]. 2012 IVF, [place]. 2014 CSECTION, [facility] [place]. 2016-LEFT WRIST CARPAL TUNNEL RELEASE-MIGRAINE FOLLOWING SURGERY Hx Anesthesia Reactions: Yes - 2000-trouble waking up, had to be put back under x 2, epidural did not work - Immunization History Date of Tetanus Vaccine: Up to date Date of Influenza Vaccine: None for Fall 2012 Infectious Disease History: No Infectious Disease History: Denies: Hx Hepatitis, Hx Human Immunodeficiency Virus (HIV), Traveled Outside the [place] in Last 30 Days - Family History Known Family History: Positive: Other - mother: bipolar disorder; depression: grandmother, uncle - Social History Alcohol Use: None Hx Substance Use: No Substance Use Type: Reports: None Substance Use Comment - Amount & Last Used: None confirmed by patient Hx Tobacco Use: No Smoking Status (MU): Never Smoked Tobacco Review of Systems Positive: Other - adverse reaction. Negative: Fever Positive: Other - face burning, and closed left eye. Positive: Shortness Of Breath Positive: Vomiting, Nausea Neurological: Other - migraine All Other Systems Reviewed And Are Negative: Yes Physical Exam - Summary Physical Exam Summary: The patient is well-nourished in mild distress and in no acute pain. The skin is warm and dry and skin color reflects adequate perfusion. No rash noted. HEENT: The head is normocephalic and atraumatic. The pupils are equal and reactive. The conjunctivae are clear and without drainage. Nares are patent and without drainage. Mouth reveals moist mucous membranes and the throat is without erythema and exudate. No pharynx erythema.The external ears are intact. The ear canals are patent and without drainage. The tympanic membranes are intact. Neck is supple with full range of motion and non-tender. There are no carotid bruits. There is no neck vein distension. No stridor. Respiratory: Chest is non-tender. Lungs are clear to auscultation and breath sounds are symmetrical and equal. No rales, rhonchi, or wheezing. Cardiovascular: Heart is regular rate and rhythm. There is no murmur or rub auscultated. Pulses are symmetrical and equal. Abdomen: The abdomen is soft and non-tender. There are normal bowel sounds heard in all four quadrants and there is no organomegaly palpated. Musculoskeletal: There is no back pain noted. Extremities are non-tender with full range of motion. There is good capillary refill. There is no peripheral edema or calf tenderness elicited. Reproducible CP on palpation. Neurological: Patient is alert and oriented to person, place and time. The patient has symmetrical motor strength in all four extremities. Cranial nerves are grossly intact. Deep tendon reflexes are symmetrical and equal in all four extremities. Psychiatric: The patient has an appropriate affect and does not exhibit any anxiety or depression. Triage Information Reviewed: Yes Vital Signs On Initial Exam: Initial Vitals Temp Pulse Resp BP Pulse Ox 98.7 F 140 20 159/94 96 11/30/16 18:01 11/30/16 18:01 11/30/16 18:01 11/30/16 18:01 11/30/16 18:01 Vital Signs Reviewed: Yes - [place] Coma Scale Coma Scale Total: 15 Diagnostics - Vital Signs Vital Signs Temp Pulse Resp BP Pulse Ox 11/30/16 18:09 98.7 F 133 24 144/110 98 11/30/16 18:05 127 24 144/110 99 11/30/16 18:01 98.7 F 140 20 159/94 96 - Laboratory Lab Statement: Any lab studies that have been ordered have been reviewed, and results considered in the medical decision making process. 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 She reports she is allergic to marijuana smoke and walked past a group of smokers. The patient rates the pain 0/10 in severity. Symptoms aggravated by marijuana smoke. Symptoms alleviated by nothing. Patient reports migraine (left mandaen), SOB, nausea, vomiting, face burning, and closed left eye. Patient will be discharged with follow up from Dr. Landeros (PCP). The patient is agreeable with this plan. - Diagnoses Provider Diagnoses: Allergic reaction, Chronic pain Discharge - Discharge Plan Condition: Stable Disposition: HOME Patient Education Materials: Chronic Pain (ED), General Allergic Reaction (ED) Referrals: Itzel Landeros MD [Primary Care Provider] - 2 Days The documentation as recorded by the Nuno bolanos Alfonso accurately reflects the service I personally performed and the decisions made by me, Matt Ledbetter MD.
== END 2016-11-30 20:18 | disposition home or self-care (01) ==
LOC: ED 17:54
DX: T78.40XA Allergy, unspecified, initial encounter (principal); R06.02 Shortness of breath; R11.2 Nausea with vomiting, unspecified; X58.XXXA Exposure to other specified factors, initial encounter
CPT/HCPCS: 99283; A9270-GY

== ENCOUNTER → 2017-01-19 18:07 | Emergency (ER) | payer MEDICARE ==
[~2017-01-19 18:07] MED LIST changes: +HYDROmorphone INJ* 1 MG/ML CARPUJECT SYRINGE IV SLOW PU ONE; +HYDROmorphone INJ* 2 MG/ML CARPUJECT SYRINGE IV SLOW PU ONE; -HYDROmorphone* 1 MG/ML 1 ML SYR IV ONE; -HYDROmorphone* 1 MG/ML 1 ML SYR IV SLOW PU ONE; +NS 0.9% 1000 ML* 1,000 ML IV ONE; -NS 0.9% 1000 ML* 2,000 ML IV ONE
--- NOTE | 2017-01-19 21:49 | ED ---
Headache - HPI Summary HPI Summary: 41F presents with migraine today. She admits to to nausea and vomiting. She is taking care of her son with 5th disease. She has history of chronic pain and migraine that she takes dilaudid for. She tried to take her oral zofran and dilaudid and vomited it up. She is seeing a neurologist in [place]. she states there is nothing different about this migraine than normal she just was unable to keep her medication down. normal takes dilaudid and zofran for this and the migraine resolves. She denies any photophobia, fevers, or neck stiffness. the headache is not the worst of her life. the headache is throbbing in nature and 8/10. - History Of Current Complaint Chief Complaint: EDHeadache Stated Complaint: MIGRAINE/VOMITING Time Seen by Provider: 01/19/17 20:18 - Allergies/Home Medications Allergies/Adverse Reactions: Allergies Allergy/AdvReac Type Severity Reaction Status Date / Time Metoclopramide [From Reglan] Allergy Severe Anaphylatic Verified 05/08/16 15:32 Shock Prochlorperazine Allergy Severe CAUSES Verified 05/08/16 15:32 [From Compazine] PARALYSIS Promethazine Allergy Severe distonic Verified 05/08/16 15:32 Tramadol [From Ultram] Allergy Severe Anaphylatic Verified 05/08/16 15:32 Shock, MAKES HEADACHE WORSE Haloperidol [From Haldol] Allergy Anxiety Verified 05/08/16 15:32 Hydralazine AdvReac Intermediate Headache Verified 05/08/16 15:32 Sumatriptan [From Imitrex] AdvReac Intermediate MAKES Verified 05/08/16 15:32 HEADACHES WORSE PMH/Surg Hx/FS Hx/Imm Hx Endocrine/Hematology History: Reports: Hx Thyroid Disease - hypothyroidism, Hx Anemia - during and after of child- NO PROBLEMS NOW Denies: Hx Diabetes Cardiovascular History: Reports: Hx Hypertension - control with meds, Other Cardiovascular Problems/Disorders - Pulmonary heart edema after child Denies: Hx Congestive Heart Failure, Hx Pacemaker/ICD Respiratory History: Reports: Hx Pulmonary Edema - after child 2013, denies problems since, Hx Seasonal Allergies, Other Respiratory Problems/ Disorders - HAD PULMONARY EDEMA WHILE , WAS IN ICU for 1 week after csection Denies: Hx Asthma, Hx Chronic Obstructive Pulmonary Disease (COPD) GI History: Reports: Other GI Disorders - Gi problems related to pain which causes proj emesis- WITH MIGRAINES History: Denies: Hx Renal Disease Musculoskeletal History: Reports: Other Musculoskeletal History - Carpal tunnel of both hands Denies: Hx Rheumatoid Arthritis, Hx Osteoporosis Sensory History: Reports: Hx Contacts or Glasses Denies: Hx Hearing Aid Opthamlomology History: Reports: Hx Contacts or Glasses Neurological History: Reports: Hx Migraine - FREQUENTLY, Hx Seizures - when in her 20's reports 2-none since, Other Neuro Impairments/Disorders - 2013 numbness in legs DURING - release after csection Psychiatric History: Reports: Hx Anxiety, Hx Depression - CONTROL WITH MEDS, Hx Community Mental Health Tx, Hx Suicide Attempt - Denies but is here for ' accidental overdose on prescription medications', Other Psychiatric Issues/ Disorders Denies: Hx Eating Disorder, Hx Panic Disorder, Hx of Violent Episodes Against Others - Surgical History Surgery Procedure, Year, and Place: 1989 TONSILLECTOMY, [place]. 2000 MYOMECTOMY , [facility]. 2012 IVF, [place]. 2013 CSECTION, [facility] [place]. 2016-LEFT WRIST CARPAL TUNNEL RELEASE-MIGRAINE FOLLOWING SURGERY Hx Anesthesia Reactions: Yes - 2000-trouble waking up, had to be put back under x 2, epidural did not work - Immunization History Date of Tetanus Vaccine: Up to date Date of Influenza Vaccine: None for Fall 2012 Infectious Disease History: No Infectious Disease History: Denies: Hx Hepatitis, Hx Human Immunodeficiency Virus (HIV), Traveled Outside the in Last 30 Days - Family History Known Family History: Positive: Other - mother: bipolar disorder; depression: grandmother, uncle - Social History Alcohol Use: None Hx Substance Use: No Substance Use Type: Reports: None Substance Use Comment - Amount & Last Used: None confirmed by patient Hx Tobacco Use: No Smoking Status (MU): Never Smoked Tobacco Review of Systems Negative: Fever Negative: Chest Pain Negative: Shortness Of Breath Positive: Vomiting, Nausea. Negative: Abdominal Pain Positive: Headache All Other Systems Reviewed And Are Negative: Yes Physical Exam Triage Information Reviewed: Yes Vital Signs On Initial Exam: Initial Vitals Temp Pulse Resp BP Pulse Ox 99.1 F 135 20 130/87 100 01/19/17 18:10 01/19/17 18:10 01/19/17 18:10 01/19/17 18:10 01/19/17 18:10 Vital Signs Reviewed: Yes Appearance: Positive: Pain Distress Skin: Positive: Warm, Dry Head/Face: Positive: Normal Head/Face Inspection Eyes: Positive: Normal, EOMI, JOSUE, Conjunctiva Clear ENT: Positive: Normal ENT inspection, Pharynx normal, TMs normal Respiratory/Lung Sounds: Positive: Clear to Auscultation, Breath Sounds Present Cardiovascular: Positive: Normal, RRR Musculoskeletal: Positive: Strength/ROM Intact Neurological: Positive: Sensory/Motor Intact, Alert, Oriented to Person Place, Time, CN Intact II-III - [place] Coma Scale Coma Scale Total: 15 Diagnostics - Vital Signs Vital Signs Temp Pulse Resp BP Pulse Ox 01/19/17 21:46 16 01/19/17 21:01 18 01/19/17 21:00 113 116/87 100 01/19/17 20:59 117 100 01/19/17 20:58 117/81 01/19/17 18:10 99.1 F 135 20 130/87 100 - Laboratory Lab Statement: Any lab studies that have been ordered have been reviewed, and results considered in the medical decision making process. Re-Evaluation - Re-Evaluation First Eval Re-Evaluation Time: 21:00 Change: Improved Comment: better but still has headache requesting more dilaudid and zofran Second Eval Re-Evaluation Time: 21:53 Change: Improved Comment: headache resolved, able to tolerate crackers Headache Course/Dx - Course Course Of Treatment: 41F presents with migraine today. She admits to to nausea and vomiting. She is taking care of her son with 5th disease. She has history of chronic pain and migraine that she takes dilaudid for. She tried to take her oral zofran and dilaudid and vomited it up. She is seeing a neurologist in [place]. she states there is nothing different about this migraine than normal she just was unable to keep her medication down. normal takes dilaudid and zofran for this and the migraine resolves. She denies any photophobia, fevers, or neck stiffness. the headache is not the worst of her life. the headache is throbbing in nature and 8/10. normal neuro exam. due to allergies will have dilaudid and zofran while after two doses patient feels better. refused fluids or labs. patient understands and agrees with plan. - Diagnoses Differential Diagnosis/HQI/PQRI: Migraine, Tension Headache, Viral Syndrome Provider Diagnoses: Migraine Discharge - Discharge Plan Condition: Good Disposition: HOME Patient Education Materials: Migraine Headache (ED) Referrals: Itzel Landeros MD [Primary Care Provider] - Additional Instructions: Take zofran every 6 hours for nausea Take pain medication as prescribed Follow up with neurology Return to ED if develop any new or worsening symptoms
[2017-01-19 21:50] VITALS: BP 120/81
== END | disposition home or self-care (01) ==
LOC: ED 18:07
DX: G43.909 Migraine, unspecified, not intractable, without status migrainosus (principal); G89.29 Other chronic pain; E03.9 Hypothyroidism, unspecified; I10 Essential (primary) hypertension; F41.9 Anxiety disorder, unspecified; F32.9 Major depressive disorder, single episode, unspecified
CPT/HCPCS: 96374; 96375; 96376; 99282; J1170; J2405

== ENCOUNTER 2017-01-20 18:55 | Emergency (ER) | payer MEDICARE ==
[2017-01-20] MEDS ORDERED: HYDROmorphone INJ* 1 MG/ML CARPUJECT SYRINGE IV ONE ×2 (20:11→20:29)
[2017-01-20] MEDS ORDERED: Ondansetron INJ* 2 MG/ML VIAL IV ONE (20:11)
--- NOTE | 2017-01-20 20:34 | ED ---
Sonido Ching Nilda, scribed for Rosi Parra MD on 01/20/17 at 2019 . Headache - HPI Summary HPI Summary: This patient is a 41 year old F BIBA to [facility] with a chief complaint of constant severe headache that began a few days ago. The patient rates the pain 9 /10 in severity. Symptoms aggravated by sleep deprivation and alleviated by nothing. Patient reports insomnia (3 days, caring for sick child), nausea, vomiting (yesterday), and seizure episode last night. PMHx includes migraines ( 2x per week) and seizures. - History Of Current Complaint Chief Complaint: EDHeadache Stated Complaint: N/V/HEADACHE Time Seen by Provider: 01/20/17 19:16 Hx Obtained From: Patient Onset/Duration: Gradual Onset, Started days ago, Still Present Initially Headache Was: Severe Currently Pain Is: Current Pain Scale(0-10)= - 9/10, Severe Timing: Constant Location of Headache: Diffuse Aggravating Factor: Nothing Allevating Factors: Nothing Associated Signs And Symptoms: Nausea, Vomiting - Allergies/Home Medications Allergies/Adverse Reactions: Allergies Allergy/AdvReac Type Severity Reaction Status Date / Time Metoclopramide [From Reglan] Allergy Severe Anaphylatic Verified 05/08/16 15:32 Shock Prochlorperazine Allergy Severe CAUSES Verified 05/08/16 15:32 [From Compazine] PARALYSIS Promethazine Allergy Severe distonic Verified 05/08/16 15:32 Tramadol [From Ultram] Allergy Severe Anaphylatic Verified 05/08/16 15:32 Shock, MAKES HEADACHE WORSE Haloperidol [From Haldol] Allergy Anxiety Verified 05/08/16 15:32 Hydralazine AdvReac Intermediate Headache Verified 05/08/16 15:32 Sumatriptan [From Imitrex] AdvReac Intermediate MAKES Verified 05/08/16 15:32 HEADACHES WORSE PMH/Surg Hx/FS Hx/Imm Hx Endocrine/Hematology History: Reports: Hx Thyroid Disease - hypothyroidism, Hx Anemia - during and after of child- NO PROBLEMS NOW Denies: Hx Diabetes Cardiovascular History: Reports: Hx Hypertension - control with meds, Other Cardiovascular Problems/Disorders - Pulmonary heart edema after child Denies: Hx Congestive Heart Failure, Hx Pacemaker/ICD Respiratory History: Reports: Hx Pulmonary Edema - after child 2013, denies problems since, Hx Seasonal Allergies, Other Respiratory Problems/ Disorders - HAD PULMONARY EDEMA WHILE , WAS IN ICU for 1 week after csection Denies: Hx Asthma, Hx Chronic Obstructive Pulmonary Disease (COPD) GI History: Reports: Other GI Disorders - Gi problems related to pain which causes proj emesis- WITH MIGRAINES History: Denies: Hx Renal Disease Musculoskeletal History: Reports: Other Musculoskeletal History - Carpal tunnel of both hands Denies: Hx Rheumatoid Arthritis, Hx Osteoporosis Sensory History: Reports: Hx Contacts or Glasses Denies: Hx Hearing Aid Opthamlomology History: Reports: Hx Contacts or Glasses Neurological History: Reports: Hx Migraine - FREQUENTLY, Hx Seizures - when in her 20's reports 2-none since, Other Neuro Impairments/Disorders - 2013 numbness in legs DURING - release after csection Psychiatric History: Reports: Hx Anxiety, Hx Depression - CONTROL WITH MEDS, Hx Community Mental Health Tx, Hx Suicide Attempt - Denies but is here for ' accidental overdose on prescription medications', Other Psychiatric Issues/ Disorders Denies: Hx Eating Disorder, Hx Panic Disorder, Hx of Violent Episodes Against Others - Surgical History Surgery Procedure, Year, and Place: 1989 TONSILLECTOMY, [place]. 2000 MYOMECTOMY , [facility]. 2012 IVF, [place]. 2014 CSECTION, [facility]. 2016-LEFT WRIST CARPAL TUNNEL RELEASE-MIGRAINE FOLLOWING SURGERY Hx Anesthesia Reactions: Yes - 2000-trouble waking up, had to be put back under x 2, epidural did not work - Immunization History Date of Tetanus Vaccine: Up to date Date of Influenza Vaccine: None for Fall 2012 Infectious Disease History: No Infectious Disease History: Denies: Hx Hepatitis, Hx Human Immunodeficiency Virus (HIV), Traveled Outside the in Last 30 Days - Family History Known Family History: Positive: Other - mother: bipolar disorder; depression: grandmother, uncle - Social History Lives: With Family Alcohol Use: None Hx Substance Use: No Substance Use Type: Reports: None Substance Use Comment - Amount & Last Used: None confirmed by patient Hx Tobacco Use: No Smoking Status (MU): Never Smoked Tobacco Review of Systems Positive: Vomiting, Nausea Neurological: Other - insomnia, sz (resolved) Positive: Headache All Other Systems Reviewed And Are Negative: Yes Physical Exam Triage Information Reviewed: Yes Vital Signs On Initial Exam: Initial Vitals Temp Pulse Resp BP Pulse Ox 98.2 F 130 16 142/95 99 01/20/17 18:58 01/20/17 18:58 01/20/17 18:58 01/20/17 18:58 01/20/17 18:58 Vital Signs Reviewed: Yes Appearance: Positive: Well-Appearing, No Pain Distress Skin: Positive: Warm, Skin Color Reflects Adequate Perfusion, Dry Eyes: Positive: EOMI, JOSUE ENT: Positive: Pharynx normal, TMs normal Neck: Positive: Supple, Nontender Respiratory/Lung Sounds: Positive: Clear to Auscultation, Breath Sounds Present. Negative: Rales, Rhonchi, Wheezes Cardiovascular: Positive: RRR, Other - no gallop. Negative: Murmur, Rub Abdomen Description: Positive: Nontender, Soft, Other: - no rebound. Negative: Distended, Guarding Bowel Sounds: Positive: Present Musculoskeletal: Positive: Strength/ROM Intact. Negative: Edema Left, Edema Right Neurological: Positive: Sensory/Motor Intact, Alert, Oriented to Person Place, Time, CN Intact II-III Psychiatric: Positive: Depressed Diagnostics - Vital Signs Vital Signs Temp Pulse Resp BP Pulse Ox 01/20/17 18:58 98.2 F 130 16 142/95 99 - Laboratory Lab Statement: Any lab studies that have been ordered have been reviewed, and results considered in the medical decision making process. Headache Course/Dx - Course Course Of Treatment: 41 yo female who reports she was seen here for migraine last night but that her symptoms worsened because she is caring for her sick child at home and did not sleep last night. She is at the point where she is vomiting her meds including po dilaudid. She has asked for Iv dilaudid and zofran so she can go home and take her normal meds - Diagnoses Provider Diagnoses: Migraine Discharge - Discharge Plan Condition: Stable Disposition: HOME Patient Education Materials: Migraine Headache (ED) Referrals: Itzel Landeros MD [Primary Care Provider] - 3 Days Additional Instructions: RETURN TO THE EMERGENCY DEPARTMENT FOR CHANGING OR WORSENING SYMPTOMS. The documentation as recorded by the Sonido bolanos Nilda accurately reflects the service I personally performed and the decisions made by me, Rosi Parra MD.
[2017-01-20 21:00] VITALS: BP 118/49
== END 2017-01-20 20:55 | disposition home or self-care (01) ==
LOC: ED 18:55
DX: G43.909 Migraine, unspecified, not intractable, without status migrainosus (principal); R11.2 Nausea with vomiting, unspecified
CPT/HCPCS: 96374; 96375; 99282; J1170; J2405

== ENCOUNTER 2017-02-28 14:37 | Emergency (ER) | payer MEDICARE ==
[2017-02-28] MEDS ORDERED: Ketorolac INJ* 30 MG/ML 1 ML VIAL IV PUSH ONE (14:50)
[2017-02-28] MEDS ORDERED: Ondansetron INJ* 2 MG/ML VIAL IV ONE (14:50)
[2017-02-28] MEDS ORDERED: diPHENhydraMINE IV* 50 MG/ML 1 ml VIAL (BENADRYL) IV ONE (14:51)
[2017-02-28] MEDS ORDERED: NS 0.9% 1000 ML* 1,000 ML IV ONE (14:51)
[2017-02-28 15:08] VITALS: BP 145/80
[2017-02-28] MEDS ORDERED: LORazepam INJ* 2 MG/ML 1 ML VIAL IV PUSH ONE (15:26)
--- NOTE | 2017-02-28 16:16 | ED ---
Headache - HPI Summary HPI Summary: Patient presents to the ED with CC of migraine BURGER. She is yelling and tearful on arrival. She states her PCP will not refill her hormone replacement therapy to try to help her with her migraines, d/t this, she is returning to the ED after 2 weeks of similar symptoms. Symptoms are left sided temporal and facial pain with radiation. She is currently in a 2nd trimester for her to stave off migraines by taking hormone therapy, however she did not get recent dosages of medications so she is here for her dilaudid. Denies other symptoms. + photophobia. Denies aura's. + nausea. - History Of Current Complaint Chief Complaint: EDHeadache Stated Complaint: MIGRAINE Time Seen by Provider: 02/28/17 14:44 Hx Obtained From: Patient Initially Headache Was: Initial Pain Scale(0-10)= - 9 Currently Pain Is: Current Pain Scale(0-10)= - 9 Timing: Constant Character: Migraine Location of Headache: Temporal, Parietal Aggravating Factor: Position Change, Bright Lights Allevating Factors: Other (Noted In Comments) - dilaudid only Associated Signs And Symptoms: Negative - Risk Factors SAH Risk Factors: Negative Meningitis Risk Factors: Negative SDH Risk Factors: Negative Temporal Arteritis Risk Factors: Female, - Allergies/Home Medications Allergies/Adverse Reactions: Allergies Allergy/AdvReac Type Severity Reaction Status Date / Time Metoclopramide [From Reglan] Allergy Severe Anaphylatic Verified 02/28/17 14:44 Shock Prochlorperazine Allergy Severe CAUSES Verified 02/28/17 14:44 [From Compazine] PARALYSIS Promethazine Allergy Severe distonic Verified 02/28/17 14:44 Tramadol [From Ultram] Allergy Severe Anaphylatic Verified 02/28/17 14:44 Shock, MAKES HEADACHE WORSE Haloperidol [From Haldol] Allergy Anxiety Verified 02/28/17 14:44 Hydralazine AdvReac Intermediate Headache Verified 02/28/17 14:44 Sumatriptan [From Imitrex] AdvReac Intermediate MAKES Verified 02/28/17 14:44 HEADACHES WORSE PMH/Surg Hx/FS Hx/Imm Hx Previously Healthy: Yes Endocrine/Hematology History: Reports: Hx Thyroid Disease - hypothyroidism, Hx Anemia - during and after of child- NO PROBLEMS NOW Denies: Hx Diabetes Cardiovascular History: Reports: Hx Hypertension - control with meds, Other Cardiovascular Problems/Disorders - Pulmonary heart edema after child Denies: Hx Congestive Heart Failure, Hx Pacemaker/ICD Respiratory History: Reports: Hx Pulmonary Edema - after child 2013, denies problems since, Hx Seasonal Allergies, Other Respiratory Problems/ Disorders - HAD PULMONARY EDEMA WHILE , WAS IN ICU for 1 week after csection Denies: Hx Asthma, Hx Chronic Obstructive Pulmonary Disease (COPD) GI History: Reports: Other GI Disorders - Gi problems related to pain which causes proj emesis- WITH MIGRAINES History: Denies: Hx Renal Disease Musculoskeletal History: Reports: Other Musculoskeletal History - Carpal tunnel of both hands Denies: Hx Rheumatoid Arthritis, Hx Osteoporosis Sensory History: Reports: Hx Contacts or Glasses Denies: Hx Hearing Aid Opthamlomology History: Reports: Hx Contacts or Glasses Neurological History: Reports: Hx Migraine - FREQUENTLY, Hx Seizures - when in her 20's reports 2-none since, Other Neuro Impairments/Disorders - 2013 numbness in legs DURING - release after csection Psychiatric History: Reports: Hx Anxiety, Hx Depression - CONTROL WITH MEDS, Hx Community Mental Health Tx, Hx Suicide Attempt - Denies but is here for ' accidental overdose on prescription medications', Other Psychiatric Issues/ Disorders Denies: Hx Eating Disorder, Hx Panic Disorder, Hx of Violent Episodes Against Others - Surgical History Surgery Procedure, Year, and Place: 1989 TONSILLECTOMY, [place]. 2000 MYOMECTOMY , [facility]. 2012 IVF, [place]. 2013 CSECTION, [facility] [place]. 2016-LEFT WRIST CARPAL TUNNEL RELEASE-MIGRAINE FOLLOWING SURGERY Hx Anesthesia Reactions: Yes - 2000-trouble waking up, had to be put back under x 2, epidural did not work - Immunization History Date of Tetanus Vaccine: Up to date Date of Influenza Vaccine: None for Fall 2012 Hx Pertussis Vaccination: No Immunizations Up to Date: Unable to Obtain/Confirm Infectious Disease History: No Infectious Disease History: Denies: Hx Hepatitis, Hx Human Immunodeficiency Virus (HIV), Traveled Outside the [place] in Last 30 Days - Family History Known Family History: Positive: Other - mother: bipolar disorder; depression: grandmother, uncle - Social History Occupation: Employed Full-time Lives: With Family Alcohol Use: None Hx Substance Use: No Substance Use Type: Reports: None Substance Use Comment - Amount & Last Used: None confirmed by patient Hx Tobacco Use: No Smoking Status (MU): Never Smoked Tobacco Review of Systems Constitutional: Negative Negative: Fever, Chills, Fatigue Positive: Photophobia ENT: Negative Cardiovascular: Negative Respiratory: Negative Genitourinary: Negative Positive: no symptoms reported, see HPI Musculoskeletal: Negative Skin: Negative Positive: Headache Psychological: Normal All Other Systems Reviewed And Are Negative: Yes Physical Exam Triage Information Reviewed: Yes Vital Signs On Initial Exam: Initial Vitals Temp Pulse Resp BP Pulse Ox 99.0 F 109 16 144/91 100 02/28/17 14:44 02/28/17 14:44 02/28/17 14:44 02/28/17 14:44 02/28/17 14:44 Vital Signs Reviewed: Yes Appearance: Positive: Well-Appearing, Well-Nourished Skin: Positive: Warm, Skin Color Reflects Adequate Perfusion Head/Face: Positive: Normal Head/Face Inspection Eyes: Positive: EOMI, JOSUE Neck: Positive: No Lymphadenopathy Respiratory/Lung Sounds: Positive: Clear to Auscultation, Breath Sounds Present Cardiovascular: Positive: RRR, Pulses are Symmetrical in both Upper and Lower Extremities Musculoskeletal: Positive: Normal, Strength/ROM Intact Neurological: Positive: Alert, Oriented to Person Place, Time, Speech Normal Psychiatric: Positive: Other - crying AVPU Assessment: Alert - [place] Coma Scale Coma Scale Total: 15 Diagnostics - Vital Signs Vital Signs Temp Pulse Resp BP Pulse Ox 02/28/17 15:37 18 02/28/17 15:00 97 15 145/80 99 02/28/17 14:54 105 21 99 02/28/17 14:53 113 20 100 02/28/17 14:52 155/94 02/28/17 14:44 99.0 F 109 16 144/91 100 - Laboratory Lab Statement: Any lab studies that have been ordered have been reviewed, and results considered in the medical decision making process. Headache Course/Dx - Course Course Of Treatment: Patient is given 1L fluids, toradol to which she accepts, but offered Benadryl to which she refused. She was then given 2mg Ativan and continues to state the medications are not working. She is crying and yelling on physical exam. She is requesting "her usual medication" and stating that is the only thing that works. The medication is dilaudid and states the medication she typically uses is the one that starts with a D. ISTOP reveals she has been receiving 2mg dosage of dilaudid from her PCP for the past year for migraines. She continues to receive this medication as early as 1.5 weeks ago. She does not wish to try any other medications. Dr. Metz and Dr. Jesus both consulted on patient with Orin Shepherd PA-C who is her ED provider. Dilaudid is not an indication for migraines and I have discussed this with the patient. She states her pain management physician, her PCP, neurologist and her OBGYN providers all agree that dilauded is the medication for her breakthrough pain from her migraines. I have continued to state we should try other migraine medications to which she is refusing. As she is upset we are not trying her usual medications, I have asked for a neurology consult. Dr. Muas consulted on patient via phone. Stating dialuded not indicated and recommends a low dose amitryptaline at bedtime. He is willing to see her in his office pending she is not on dilauded, requesting she be weaned off from her prescriber. Upon re-entering the room multiple times, patient is resting comfortable. Her demeanor promptly changed when provider entered the room and began to sob. This was encouraged and again patient declines, now requesting discharge. I have discussed our center medical and lab director, Dr. Aga Jesus is willing to come to speak with her to which she declines. States "I do not want to speak with anyone unless they can give me the dialuded." She then requests to leave and alerts the RN to discharge her. She is hyperventilating and asking myself to leave the room. Again, I encourage one of our other providers (Dr. Jesus or Dr Metz) to see patient and again she declines. She is discharged and requesting a wheelchair. She is crying and upset on discharge. - Diagnoses Differential Diagnosis/HQI/PQRI: Migraine Provider Diagnoses: Migraine Is Visit Related: No - Physician Notifications Instructed by Provider To: Have Pt Call For Appt. Discharge - Discharge Plan Condition: Stable Disposition: HOME Patient Education Materials: Migraine Headache (ED) Referrals: Cuco Sánchez MD [Medical Doctor] - Itzel Landeros MD [Primary Care Provider] - Additional Instructions: I have given you a referral to Dr. Sánchez As discussed, I am willing to try and/or prescribe migraine medications to help you I have consulted with neurology. They have requested a low dose amitriptyline at bedtime, but you have refused this medication
[2017-02-28 16:36] LABS: Urine Bilirubin Negative (Negative); Urine Glucose Negative (Negative); Urine Nitrite Negative (Negative)
[2017-02-28 16:42] LABS: Benzodiazepine Urine Screen None Detected (None Detect)
--- NOTE | 2017-02-28 18:16 | ED ---
Progress - Progress Note Progress Note: Asked by BUDDY Ruiz to consult on this pt with hx chronic migraines who receives dilaudid Po from her PCP, Dr. Guzman. Pt has had multiple visits to [facility] where she has been given dilaudid IV and then DC'd. Pt requests this again tonight. Per Orin, pt declines all other medications. I met with pt in face to face interview as she was being discharged, with her Ever, who was holding their young son. Pt and her describe a hx of chronic migraines that are unrelieved by multiple medications and that she is allergic or has bad side effects of medications including amitrityline, zonisamide, sumatriptan, metoclopramide, prochlorperazine, promethazine, tramadol, topamax. Pt has been a pt of Dr. Cyr but has not seen him since 2014 before she had adverse reaction to zonisamide. Pt had talked with Dr. Cyr about going to the pain clinic and possibly starting botox. I discussed the case with Dr. Musa who reviewed pt's records that he could see from Dr. Cyr. Pt had been scheduled for a follow up appointment on , but it is unclear why the appointment did not happen. Pt and said they have not been able to see Dr. Cyr, that it is a 3 month wait for appointments. Pt and her state that her migraines were decreased when she was , so her [employer], Dr. Garza, in [place] has had her on estrogen and progesterone, trying to simulate the hormonal balance of in an effort to decrease her migraines. The progesterone, estradiol, clonazepam and dilaudid are her only medications. Pt states she ran out of dilaudid today, because she vomited up her last few pills today. Exam: pt is dry heaving, wearing dark sunglasses, speaks full sentences, answers appropriately, is tearful and upset, has no focal neuro deficit, has a slow but steady gait. Rest of exam per Orin Shepherd. A/P: Dr. Musa initially recommended amitriptyline at hs for pt, not having the hx that pt had already tried this and had been a pt of Dr. Cyr. When I called Dr. Musa back and gave additional hx, Dr. Musa stateed he would send a report to Dr. Cyr, asking for soon appointment, and that he would also speak with the secretary office clerk, Bibi, to try to facilitate a soon appointment for the patient. Dr. Musa stated that the pt would need ongoing neurologist care, but that botox is not an unreasonable course to pursue, but that this would come from pain clinic, and referral to pain clinic would come from Dr. Cyr. Pt and her were both advised that this ED will no longer give dilaudid for her migraine care, and that we would develop a care plan for pt based on her neurologist recommendation. Pt was frustrated and stated she still had a headache although the pain medication in the ED did relieve her back pain. Pt' s appreciated our efforts to facilitate the neurology appointment and stated they would follow up with their PCP. Pt was ambulatory at [facility] without assistance. Condition was stable Dx; migraine headache Disposition: home with her . Course/Dx - Course Course Of Treatment: Patient is given 1L fluids, toradol and offered benadryl to which she refused. She was then given 2mg Ativan and continues to state the medications are not working. She is crying and yelling on PE. She is requesting "her usual medication" and stating that is the only thing that works. The medication is dilaudid. ISTOP reveals she has been receiving 2mg dosage of dilaudid from her PCP for the past year for migraines. She continues to receive this medication. She does not wish to try any other medications. Dr. Metz and Dr. Jesus both consulted on patient. Dilaudid is not an indication for migraines. I have continued to state we should try other migraine medications to which she is refusing. As she is upset we are not trying other medications, I have asked for a neurology consult. - Diagnoses Provider Diagnoses: Migraine
== END 2017-02-28 18:18 | disposition home or self-care (01) ==
LOC: ED 14:37
DX: G43.909 Migraine, unspecified, not intractable, without status migrainosus (principal); H53.149 Visual discomfort, unspecified
CPT/HCPCS: 36415; 80307; 81003; 96374; 96375; 99282; J1200; J1885; J2060; J2405

== ENCOUNTER 2017-07-05 11:15 | Emergency (ER) | payer MEDICARE ==
[2017-07-05 11:22] VITALS: BP 149/94
[2017-07-05] MEDS ORDERED: diPHENhydraMINE IV* 50 MG/ML 1 ml VIAL (BENADRYL) SLOW PUSH ONE (11:47)
[2017-07-05] MEDS ORDERED: Haloperidol INJ IV/IM* 5 MG/ML AMP IV SLOW PU ONE ×2 (11:47→12:34)
[2017-07-05] MEDS ORDERED: Ketorolac INJ* 30 MG/ML 1 ML VIAL IV PUSH ONE (11:47)
[2017-07-05] MEDS ORDERED: Magnesium Sulfate 2 GM IV* 2 GM/50 ML BAG IVPB ONE (11:47)
[2017-07-05] MEDS ORDERED: NS 0.9% 1000 ML* 1,000 ML IV ONE (11:49)
[2017-07-05 12:25] LABS: Hematocrit 40 % (35-47); Hemoglobin 12.9 g/dl (12.0-16.0); Mean Corpuscular HGB Conc 32 g/dl (31-36); Mean Corpuscular Hemoglobin 25 pg (27-31); Mean Corpuscular Volume 77 fL (80-97); Platelet Count 257 10^3/ul (150-450); Red Blood Count 5.19 10^6/ul (4.0-5.4); Red Cell Distribution Width 16 % (10.5-15); White Blood Count 5.4 10^3/ul (3.5-10.8)
[2017-07-05] MEDS ORDERED: Ondansetron INJ* 2 MG/ML VIAL IV ONE (12:26)
[2017-07-05] MEDS ORDERED: hydrOXYzine HCL TAB* 50 MG PO ONE (12:37)
[2017-07-05 12:43] LABS: EGFR Non-African American 71.4 (>60)
[2017-07-05] MEDS ORDERED: D5W 1/2 NS 1000 ML BAG* 1,000 ML IV SCH (13:00)
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
== END 2017-07-05 12:44 | disposition left against medical advice (07) ==
LOC: MERGE 11:15 → ED 11:15
DX: T59.91XA Toxic effect of unspecified gases, fumes and vapors, accidental (unintentional), initial encounter (principal); R51 Headache; R20.2 Paresthesia of skin; Y92.9 Unspecified place or not applicable; F32.9 Major depressive disorder, single episode, unspecified; Z88.5 Allergy status to narcotic agent; Z88.8 Allergy status to other drugs, medicaments and biological substances
CPT/HCPCS: 36415; 80048; 80307; 82375; 85027; 96374; 96375; 99282; J1630; J1885; J2405; J3475

== ENCOUNTER 2017-10-22 11:36 | Emergency (ER) | payer MEDICARE ==
[2017-10-22 11:43] VITALS: BP 146/104
--- NOTE | 2017-10-22 11:49 | UC ---
General HPI - HPI Summary HPI Summary: Evelyn Ching, scribed for attending Barb Buchanan MD. Pt is a 42 y/o F who presents to [facility] c/o FB sensation in the esophagus for 2 weeks. Pt reports that it has felt like there is a nutshell stuck in the back of my throat. Associated pain is moderate, ranked 6/10 on triage, characterized as burning, sharp and squeezing. Nurses triage also noted difficulty speaking and swallowing. Sx aggravated and alleviated by nothing. - History of Current Complaint Chief Complaint: UCGeneralIllness Stated Complaint: SORE THROAT Hx Obtained From: Patient Onset/Duration: Lasting Weeks - 2 weeks, Still Present Current Severity: Moderate Pain Intensity: 6 Pain Location at: Esophagus Character: Burning, sharp, and squeezing Aggravating: Nothing Alleviating: Nothing Associated Signs & Symptoms: Positive: Other - Difficulty speaking and swallowing - Allergy/Home Medications Allergies/Adverse Reactions: Allergies Allergy/AdvReac Type Severity Reaction Status Date / Time hydralazine Allergy Anxiety Verified 10/22/17 11:44 promethazine Allergy See Comment Verified 09/09/17 11:08 haloperidol AdvReac Agitation Verified 09/09/17 11:08 metoclopramide [From Reglan] AdvReac See Comment Verified 09/09/17 11:08 prochlorperazine AdvReac See Comment Verified 09/09/17 11:08 [From Compazine] sumatriptan [From Imitrex] AdvReac See Comment Verified 09/09/17 11:08 tramadol [From Ultram] AdvReac See Comment Verified 09/09/17 11:08 PROMETHAZINE (IV) AdvReac Anxiety Uncoded 09/09/17 11:08 STEROIDS AdvReac See Comment Uncoded 09/09/17 11:08 Home Medications: Home Medications FLUoxetine CAP* [PROzac CAP*] 20 mg PO DAILY 10/22/17 [History Confirmed ] HYDROmorphone TAB* [Dilaudid TAB*] 2 mg PO DAILY 10/22/17 [History Confirmed ] clonazePAM [Clonazepam] 0.5 mg PO DAILY 10/22/17 [History Confirmed 10/22/17] PMH/Surg Hx/FS Hx/Imm Hx Endocrine History: Thyroid Disease Cardiovascular History: Hypertension Neurological History: Migraine - Surgical History Surgical History: Yes Surgery Procedure, Year, and Place: - Family History Known Family History: Positive: Other - mother: bipolar disorder; depression: grandmother, uncle Negative: Diabetes - Social History Alcohol Use: None Substance Use Type: None Substance Use Comment - Amount & Last Used: None confirmed by patient Smoking Status (MU): Never Smoked Tobacco - Immunization History Most Recent Influenza Vaccination: "Pt forgets" Most Recent Tetanus Shot: 03/16 Most Recent Pneumonia Vaccination: Never Review of Systems Constitutional: Negative Skin: Negative Eyes: Negative ENT: Other - FB sensation in the esophagus, difficulty speaking and swallowing Respiratory: Negative Cardiovascular: Negative Gastrointestinal: Negative Genitourinary: Negative Motor: Negative Neurovascular: Negative Musculoskeletal: Negative Neurological: Negative Psychological: Negative All Other Systems Reviewed And Are Negative: Yes Physical Exam - Summary Physical Exam Summary: Appearance: Well-appearing, Well-nourished Skin: Warm Eyes: Normal ENT: Mild pharyngeal erythema, no FB visualized, the airway is patent over the trachea with auscultation, no cervical lymphadenopathy, no foreign lumps palpated over the neck paratracheally Neck: Supple, nontender Respiratory: Clear to auscultation Cardiovascular: Regular rate, regular rhythm. Normal S1, S2. Musculoskeletal: Normal, Strength/ROM Intact Neurological: Normal, A&Ox3 Psychiatric: Normal General: No acute distress Triage Information Reviewed: Yes Vital Signs: Initial Vital Signs Temp 98.3 F 10/22/17 11:39 Pulse 112 10/22/17 11:39 Resp 20 10/22/17 11:39 BP 146/104 10/22/17 11:39 Pulse Ox 98 10/22/17 11:39 Vital Signs Reviewed: Yes Course/Dx - Course Course Of Treatment: FB sensation in throat x 2 weeks, cannot be viaulized with otoscope, will need to go to ED for advanced imaging study and ENT consult - Differential Dx - Multi-Symptom Provider Diagnoses: 1. FB sensation in the throat. 2. Throat irritation - Physician Notifications Discussed Patient Care With: Christopher Metz Time Discussed With Above Provider: 11:50 Instructed by Provider To: Other - Discussed pt, as she is being sent to the ED. Discharge - Sign-Out/Discharge Documenting (check all that apply): Patient Departure - Discharge - to ED - Discharge Plan Condition: Stable Disposition: HOME Patient Education Materials: Foreign Body Ingestion (ED) Referrals: Itzel Landeros MD [Primary Care Provider] - Additional Instructions: PLEASE GO TO ER NOW - Billing Disposition and Condition Condition: STABLE Disposition: Home
== END 2017-10-22 12:00 | disposition home or self-care (01) ==
LOC: UCEAST 11:36
DX: R09.89 Other specified symptoms and signs involving the circulatory and respiratory systems (principal); I10 Essential (primary) hypertension; Z88.1 Allergy status to other antibiotic agents; Z88.8 Allergy status to other drugs, medicaments and biological substances
CPT/HCPCS: 99212; G0463

== ENCOUNTER 2017-10-22 12:26 | Emergency (ER) | payer MEDICARE ==
[2017-10-22] MEDS ORDERED: Glucagon* 1 MG VIAL IM ONE (14:11)
[2017-10-22] MEDS ORDERED: Ondansetron ODT TAB* 4 MG SL ONE (14:12)
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
[2017-10-22] MEDS ORDERED: fentaNYL* 50 MCG/ML 2 ML VIAL (100 MCG VIAL) ONE (15:39)
[2017-10-22] MEDS ORDERED: Midazolam* 1 MG/ML 10 ML VIAL (10 MG) ONE (15:39)
--- NOTE | 2017-10-22 15:42 | RAD ---
Indication: Unable to swallow. Sore throat. Choking. Comparison: January 11, 2011 CT. Technique: AP and lateral views of the neck with soft tissue technique. Report: Pharyngeal, laryngeal, and tracheal air columns are normal in contour. The epiglottis is normal. No abnormal gas collection evident. The cervical spine and prevertebral soft tissues are normal. IMPRESSION: #. Negative exam.
[2017-10-22] MEDS ORDERED: HYDROmorphone INJ* 1 MG/ML CARPUJECT SYRINGE IV ONE ×2 (17:49→19:04)
--- NOTE | 2017-10-22 17:53 | PN ---
Progress Note - Progress Note Date of Service: 10/22/17 Note: Very anxious patient presents for possible foreign body in throat. Concerned about throat cancer. Dr. Nash performed endoscope using fentanyl and Versed. Endoscopy revealed several small ulcers in stomach. Dr. Nash believes patient symptoms due to effects of gastric acid acid in her throat. Patient also states she gets headaches from fentanyl, and states she now has a >10/10 migraine. NSAIDs contraindicated to treat headache given patient's endoscopy findings. Patient states Tylenol does not work for her migraines. Has Rx for Dilaudid 2mg PO PRN for migraines. Gave patient 0.5 mg Dilaudid IV. Patient states migraine pain mildly improved with 0.5 mg IV Dilaudid. Patient given another 0.5 mg IV. Headache symptoms improved further, but patient not pain- free. Patient has a prescription for Dilaudid 2 mg by mouth at home, and wants to go home. Rx Protonix 40 mg twice a day per Dr. Nash time 16 weeks. Follow -up in clinic with Dr. Nash in 2 weeks' time.
[2017-10-22 20:20] VITALS: BP 123/74
--- NOTE | 2017-10-22 20:26 | CONS ---
CC: BUDDY Figueroa; Marta Nash DO GASTROENTEROLOGY CONSULTATION: DATE OF CONSULT: 10/22/17 REASON FOR CONSULT: Possible foreign body. HISTORY OF PRESENT ILLNESS: Meg is a 42-year-old female with a history of migraines, anxiety, depression with previous suicidal ideation with overdose, who presented to the emergency room with the inability to swallow over the last 24 hours. She was eating cherries at approximately 1 a.m. last night when she began to develop excessive amount of saliva in her posterior pharynx. She states she has been unable to sallow food and also vomited this past morning. She states she coughs and spits up her own saliva. She is only able to tolerate ice chips. She does admit to significant anxiety after experiencing these symptoms. She denies any chest pain, shortness of breath. CT of the soft tissue performed in the emergency room was negative for any acute abnormalities. She denies any hematemesis, recent weight changes, odynophagia, as well as melena or bright red blood per rectum. She admits to having laryngoscopy performed by an ENT doctor while she was a few years back , which was unrevealing at that time. She does admit to significant amounts of Excedrin use due to her history of migraines. She otherwise denies any other NSAID use. She denies family history of gastrointestinal malignancies. She denies a prior history of endoscopy. PAST MEDICAL HISTORY: 1. Anxiety. 2. Depression with suicidal ideation and overdose in the past. 3. Hypertension. 4. Prior history of seizures in her 20s. 5. Migraines. PAST SURGICAL HISTORY: 1. . 2. Laryngoscopy. 3. Carpal tunnel surgery. MEDICATIONS: Home medications include: 1. Klonopin. 2. Dilaudid. 3. Zofran. 4. Excedrin. ALLERGIES: HYDRALAZINE, PROMETHAZINE, HALOPERIDOL, METOCLOPRAMIDE, PROCHLORPERAZINE, SUMATRIPTAN, TRAMADOL, and STEROIDS. FAMILY HISTORY: No history of gastrointestinal malignancies. Strong family history of bipolar disorder and depression among multiple family members. SOCIAL HISTORY: Denies any alcohol use or tobacco use along with illicit drug use. REVIEW OF SYSTEMS: Review of systems has been reviewed on a 14-point scale. All pertinent positives and negatives have been noted above in the HPI. DIAGNOSTIC STUDIES/LAB DATA: Soft tissue neck x-ray was negative. ASSESSMENT AND PLAN: Meg is a 42-year-old female with a history of anxiety, depression with suicidal ideation and overdosing, severe migraines, who presented to the emergency room with complaints of inability to swallow with possible foreign body. Gastroenterology was consulted for an emergent endoscopy. After an extensive discussion with the patient, she agreed to have the upper endoscopy performed to further evaluate her symptoms as she was unable to tolerate solid or liquids. Of note, her soft tissue neck x-ray was grossly unremarkable. She has been taking quite a bit of Excedrin for her chronic migraines, which could be a culprit to possible, gastritis, PUD, gastroesophageal reflux disease, esophageal strictures versus a Schatzki's ring. The patient will be kept n.p.o. for now and we will perform an emergent endoscopy in the emergency room under moderate anesthesia. Further recommendations will be provided as the patient's clinical course progresses. Thank you, Lukas Magallon, for allowing us to participate in the care of your patient. If you should have any further questions or concerns, please do not hesitate to contact us. [id number]/[facility] #: [id number] BENJA
--- NOTE | 2017-10-23 02:33 | PRO ---
CC: BUDDY Figueroa; Marta Nash DO GASTROENTEROLOGY OPERATIVE REPORT: DATE OF PROCEDURE: 10/22/17 OPERATIVE PROCEDURE: Esophagogastroduodenoscopy to second portion of duodenum. PROCEDURES TECH: Marta Nash DO ANESTHESIA: 1. Midazolam 18 mg IV. 2. Fentanyl 75 mcg IV. HISTORY OF PRESENT ILLNESS: Meg is a 42-year-old female with a history of anxiety, depression, with suicidal ideation and overdose in the past and a history of severe migraines, who presents with inability to swallow. She has been taking heavy-dose Excedrin for her migraines and over the last few days has been experiencing increasing cough and difficulty swallowing with solid and liquid foods. She denies a previous history of an endoscopy, although did have a laryngoscopy for gastroesophageal reflux disease while she was . She currently is unable to swallow her saliva for which Gastroenterology was consulted for an emergent endoscopy for possible foreign body. PREOPERATIVE DIAGNOSES: 1. Inability to swallow. 2. History of nonsteroidal anti-inflammatory drug use. POSTOPERATIVE DIAGNOSES: 1. Normal-appearing second and third portion of the duodenum. 2. Duodenitis of the bulb. 3. Severe pangastritis with erosions and small clean-based ulcers with CLOtest to rule out Helicobacter pylori. 4. Normal-appearing esophagus. 5. No evidence of esophageal foreign body. 6. Further biopsies were not obtained due to emergent endoscopy and risk of aspiration. RECOMMENDATIONS: 1. We will follow up with CLOtest. 2. We will start the patient on pantoprazole therapy 40 mg twice daily for 6 weeks and then decrease to once daily. The patient should follow up in our office in 2 weeks to discuss biopsy results and determine further plan of care. 3. The patient was encouraged to avoid NSAID use as this can cause ulcers and worsen gastritis and her symptoms. 4. Recommend monitored anesthesia care for future endoscopic procedures as she has a high tolerance to midazolam and fentanyl. She also states fentanyl causes severe migraines. DESCRIPTION OF PROCEDURE: Esophagogastroduodenoscopy was explained in detail to the patient. The risks, benefits, complications, alternatives, and possibilities of missed lesions were explained and understood. Complications included but were not limited to reaction to anesthesia, aspiration, increased risk of bleeding, infection and perforation. All questions were answered. The patient demonstrated understanding of the conversation, informed consent was obtained. Next, the patient was brought to the endoscopy suite, placed in the left lateral recumbent position, where blood pressure, cardiac, and oxygen monitors were applied. The patient was found to be a fit candidate for moderate anesthesia. After adequate IV sedation was achieved, a bite-block was placed. Next, a standard adult endoscope was inserted per os under direct visualization to the first, second, and third portion of the duodenum. Second and third portions of the duodenum were grossly unremarkable. Further withdrawal into the bulb of the duodenum revealed erythema consistent with duodenitis. Further withdrawal of the endoscope into the gastric lumen revealed severe erythema throughout the mucosa of the stomach, however, was more severe in the antrum. There were erosions and small clean-based ulcers seen. No active bleeding was noted. On retroflexion, the patient had a normal gastric cardia sling. Further withdrawal of the endoscope into the distal esophagus revealed normal-appearing mucosa. The Z-line was noted to be at 35 cm from the incisors. The rest of the tubular esophagus was normal appearing. No foreign body was visualized. Air was then removed from the patient. Endoscope was removed from the patient. The patient tolerated the procedure well overall even though she was semi-alert during the procedure. After a period of observation, the patient remained in the emergency room for further care in stable condition. Thank you, BUDDY Figueroa, for allowing us to participate in the care of your patient. If you should have any further questions or concerns, please do not hesitate to contact us. [id number]/[facility] #: [id number] BENJA
[2017-11-06] MEDS ORDERED: Acetaminophen TAB* 325 MG PO ONE (22:38)
--- NOTE | 2017-11-06 22:40 | PN ---
Progress Note - Progress Note Date of Service: 11/06/17 Note: Patient was discharged home in stable condition.
== END 2017-10-22 20:17 | disposition home or self-care (01) ==
LOC: ED 12:26
DX: R13.10 Dysphagia, unspecified (principal); K25.9 Gastric ulcer, unspecified as acute or chronic, without hemorrhage or perforation; I10 Essential (primary) hypertension; Z88.5 Allergy status to narcotic agent; Z88.8 Allergy status to other drugs, medicaments and biological substances; R09.89 Other specified symptoms and signs involving the circulatory and respiratory systems; Z88.1 Allergy status to other antibiotic agents
CPT/HCPCS: 70360; 87077; 96372; 96374; 96376; 99156; 99157; 99212; 99285; A9270-GY; G0463; J1170; J1610; J2250; J3010

== ENCOUNTER 2018-03-06 08:06 | Emergency (ER) | payer MEDICARE ==
--- NOTE | 2018-03-06 08:20 | ED ---
Throat Pain/Nasal Congestion - HPI Summary HPI Summary: This pt is a 42 y/o female presenting to [facility] via EMS for coughing and choking. Pt reports she has a long history of migraine and has had associated projectile vomiting with it for the past 20 years. She believes "this" might have damaged her throat and has had these choking/coughing episodes since September 2017. Pt notes she feels like "scabs" are in her throat and as if she is choking on a foreign body in her throat. Additionally reports dry throat, fatigue, back and rib pain from coughing. Denies fever, chills, chest pain, headache, abd pain. EMS reports pt has clear lungs. Pt was in the ED in September for this same episode and was seen by Dr. Nash GI, who performed an endoscopy and was discharged home with rx for protonix.. Pt also saw Dr. Gudino, ENT, who put her on NC. Pt has taken gabapentin and had acupuncture for these episodes without relief. She states there are "only two times" when she has relief, one is when she is in deep sleep and the second is with rescue medications for her migraine ( Dilaudid and Zofran). Current medications include: Fluoxetine 21 mg 3QD, Clonazepam 5 mg BID, Hydromorphone 2 mg PRN, Ondansetron 4 mg PRN, Cyclobenzaprine 10 mg PRN. Allergies: Compazine, Promethazine IV, Haloperidol, Metoclopramide. - History of Current Complaint Hx Obtained From: Patient, EMS Onset/Duration: Sudden Onset, Still Present Severity: Moderate Associated Signs And Symptoms: Positive: Dysphagia, FB Sensation. Negative: Drooling, Wheezing, Hoarseness, Sinus Discomfort, Nasal Discharge Cough: Nonproductive Related History: Other (Noted In Comments) - similar to episode in the past in September - Allergies/Home Medications Allergies/Adverse Reactions: Allergies Allergy/AdvReac Type Severity Reaction Status Date / Time hydralazine Allergy Anxiety Verified 03/06/18 08:46 promethazine Allergy See Comment Verified 03/06/18 08:46 haloperidol AdvReac Agitation Verified 03/06/18 08:46 metoclopramide [From Reglan] AdvReac See Comment Verified 03/06/18 08:46 prochlorperazine AdvReac See Comment Verified 03/06/18 08:46 [From Compazine] sumatriptan [From Imitrex] AdvReac See Comment Verified 03/06/18 08:46 tramadol [From Ultram] AdvReac See Comment Verified 03/06/18 08:46 PROMETHAZINE (IV) AdvReac Anxiety Uncoded 03/06/18 08:46 STEROIDS AdvReac See Comment Uncoded 03/06/18 08:46 Home Medications: Home Medications Cyclobenzaprine TAB* [Flexeril 10 MG TAB*] 10 mg PO BID PRN 03/06/18 [History Confirmed 03/06/18] PMH/Surg Hx/FS Hx/Imm Hx Endocrine/Hematology History: Reports: Hx Thyroid Disease - hypothyroidism?, Hx Anemia - during and after of child- NO PROBLEMS NOW Denies: Hx Diabetes Cardiovascular History: Reports: Hx Hypertension - control with meds, Other Cardiovascular Problems/Disorders - Pulmonary heart edema after child Denies: Hx Congestive Heart Failure, Hx Pacemaker/ICD Respiratory History: Reports: Hx Pulmonary Edema - after child 2013, denies problems since, Hx Seasonal Allergies, Other Respiratory Problems/ Disorders - HAD PULMONARY EDEMA WHILE , WAS IN ICU for 1 week after csection Denies: Hx Asthma, Hx Chronic Obstructive Pulmonary Disease (COPD) GI History: Reports: Other GI Disorders - Gi problems related to pain which causes proj emesis- WITH MIGRAINES History: Denies: Hx Renal Disease Musculoskeletal History: Reports: Hx Back Problems, Other Musculoskeletal History - Carpal tunnel of both hands Denies: Hx Rheumatoid Arthritis, Hx Osteoporosis Sensory History: Reports: Hx Contacts or Glasses Denies: Hx Legally Blind, Hx Deafness, Hx Hearing Aid Opthamlomology History: Reports: Hx Contacts or Glasses Denies: Hx Legally Blind Neurological History: Reports: Hx Migraine, Hx Seizures - when in her 20's reports 2-none since, Other Neuro Impairments/Disorders - 2013 numbness in legs DURING - release after csection Psychiatric History: Reports: Hx Anxiety, Hx Depression, Hx Community Mental Health Tx, Hx Suicide Attempt - hx of 'accidental overdose on prescription medications', Other Psychiatric Issues/Disorders Denies: Hx Eating Disorder, Hx Panic Disorder, Hx of Violent Episodes Against Others - Surgical History Surgery Procedure, Year, and Place: Hx Anesthesia Reactions: Yes - 2000-trouble waking up, had to be put back under x 2, epidural did not work - Immunization History Date of Tetanus Vaccine: Up to date Date of Influenza Vaccine: None for Fall 2012 Infectious Disease History: Denies: Hx Hepatitis, Hx Human Immunodeficiency Virus (HIV) - Family History Known Family History: Positive: Other - mother: bipolar disorder; depression: grandmother, uncle Negative: Diabetes - Social History Alcohol Use: None Hx Substance Use: No Substance Use Type: Reports: None Substance Use Comment - Amount & Last Used: None confirmed by patient Hx Tobacco Use: No Smoking Status (MU): Never Smoked Tobacco Review of Systems Positive: Fatigue. Negative: Fever, Chills ENT: Other - POS: choking, dry throat Negative: Chest Pain Positive: Shortness Of Breath, Cough Negative: Abdominal Pain Musculoskeletal: Other - POS: back and rib pain Negative: Headache All Other Systems Reviewed And Are Negative: Yes Physical Exam - Summary Physical Exam Summary: VITAL SIGNS: Reviewed. GENERAL: Patient is a well-developed and nourished female who is lying comfortable in the stretcher. Patient is not in any acute respiratory distress. HEAD AND FACE: No signs of trauma. No ecchymosis, hematomas or skull depressions. No sinus tenderness. EYES: PERRLA, EOMI x 2, No injected conjunctiva, no nystagmus. EARS: Hearing grossly intact. Ear canals and tympanic membranes are within normal limits. MOUTH: Oropharynx within normal limits. No muffled voice. No foreign body. Pt does not have dysphagia. No difficulty swallowing. No drooling. NECK: Supple, trachea is midline, no adenopathy, no JVD, no carotid bruit, no c- spine tenderness, neck with full ROM. CHEST: Symmetric, no tenderness at palpation LUNGS: Clear to auscultation bilaterally. No wheezing or crackles. No episodes of coughing. No stridor. CVS: Regular rate and rhythm, S1 and S2 present, no murmurs or gallops appreciated. ABDOMEN: Soft, non-tender. No signs of distention. No rebound, no guarding, and no masses palpated. Bowel sounds are normal. EXTREMITIES: FROM in all major joints, no edema, no cyanosis or clubbing. NEURO: Alert and oriented x 3. No acute neurological deficits. Speech is normal and follows commands. SKIN: Dry and warm Triage Information Reviewed: Yes Vital Signs On Initial Exam: Initial Vitals Temp Pulse Resp BP Pulse Ox 97.8 F 114 20 120/94 97 03/06/18 08:10 03/06/18 08:10 03/06/18 08:10 03/06/18 08:10 03/06/18 08:10 Vital Signs Reviewed: Yes Re-Evaluation - Re-Evaluation First Eval Re-Evaluation Time: 08:58 Comment: I reviewed Dr. Gudino's and Dr. Romo's recommendations with the pt. Pt will follow up with ENT and GI. Pt will be discharged home. EENT Course/Dx - Course Assessment/Plan: In the ED course the patient doesn't have any swelling of the tongue, swelling of the throat, and she doesn't have any swelling of the lips. The airway is patent. The patient doesn't have any drooling, any dysphagia, and she is able drink fluids and also she is swallowing ice chips. At this time I discussed the case with Dr. Gudino, ENT, who had done a scope for this patient and he reports that the scope shows normal appearing larynx and pharynx with no signs of malignancy or any other abnormality. He recommended gabapentin, however the patient was reluctant to take this medication therefore he went to speak with Dr. Berry the primary care physician. He also reports that the patient missed a couple of appointments and follow-ups with him. He also notes that the patient has an appointment with Dr. Gudino tomorrow and he will be happy to follow-up with her tomorrow. I went back and spoke with the patient and she is demanding to do another scope, and she doesn't understand why ENT or GI can call and see the patient in the ED. Therefore I decided to discuss the case with GI and I spoke with Dr. Romo who also reports that since the patient doesn't have any type of the dysphagia, drooling or any type of distress the patient will follow-up with GI tomorrow at 3 PM since she has an appointment with Dr. Charles. I had a long discussion with the patient to keep the appointment with the specialist. The patient is not happy, she requested for the specialist to come and see her in the emergency department. The patient was explained that that would not be possible since this is a chronic problem and she doesn't have any signs or symptoms for this patient to come to the emergency room and for her to be seen by the specialist. Therefore the patient will be discharged home with follow-up with specialist and her PCP. The patient is hemodynamically stable, alert and oriented x3. The patient has no choking episodes in the ER, all vital signs are stable. - Diagnoses Provider Diagnoses: Cough - Provider Notifications Discussed Care Of Patient With: Niraj Gudino Time Discussed With Above Provider: 08:22 Instructed by Provider To: Other - I discussed the pt's case with Dr. Gudino , ENT, who states pt's past scope was normal and for pt to follow up with him. [ 08:57] I spoke with Dr. Romo, GI, who reports since pt has no symptoms pt is recommended to follow up with Dr. Charles as scheduled tomorrow. Discharge - Sign-Out/Discharge Documenting (check all that apply): Patient Departure - Discharge home - Discharge Plan Condition: Stable Disposition: HOME Patient Education Materials: Acute Cough (ED) Referrals: Itzel Landeros MD [Primary Care Provider] - Henrietta Charles MD [Medical Doctor] - Additional Instructions: Follow up with Dr. Charles, heliotherapist, as scheduled tomorrow. RETURN TO THE ED FOR ANY NEW OR WORSENING SYMPTOMS. - Billing Disposition and Condition Condition: STABLE Disposition: Home - Attestation Statements Document Initiated by Kelly: Yes Documenting Scribe: Claire Baptiste Provider For Whom Kelly is Documenting (Include Credential): Christopher Metz MD Scribe Attestation: Claire Ching, scribed for Christopher Metz MD on 03/06/18 at 1844. Scribe Documentation Reviewed: Yes Provider Attestation: The documentation as recorded by the Claire bolanos accurately reflects the service I personally performed and the decisions made by me, Christopher Metz MD Status of Scribkate Document: Viewed
[2018-03-06] MEDS ORDERED: Codeine TAB* 30 MG PO ONE (09:14)
[2018-03-06 09:36] VITALS: BP 117/85
== END 2018-03-06 09:36 | disposition home or self-care (01) ==
LOC: ED 08:06
DX: R05 Cough (principal); Z88.5 Allergy status to narcotic agent; Z88.8 Allergy status to other drugs, medicaments and biological substances; I10 Essential (primary) hypertension
CPT/HCPCS: 99283; A9270-GY

== ENCOUNTER → 2018-09-08 08:57 | Day surgery (SDC) | payer MEDICARE ==
[~2018-09-08 08:57] MED LIST changes: +Buffered Lidocaine 1% SYRIN* 1 ML/SYRINGE INTRADERM ONE; +Famotidine IV* 10 MG/ML 2 ML (20 mg) IV ONE; +Famotidine IV* 10 MG/ML 2 ML (20 mg) ONE; +HYDROmorphone INJ* 0.5 MG/0.5 ML SYRINGE ONE; -HYDROmorphone INJ* 1 MG/ML CARPUJECT SYRINGE IV SLOW PU ONE; -HYDROmorphone INJ* 2 MG/ML CARPUJECT SYRINGE IV SLOW PU ONE; +HYDROmorphone INJ1* 1 MG/ML SYRINGE IV SLOW PU ONE; +HYDROmorphone INJ1* 1 MG/ML SYRINGE ONE; +Ibuprofen TAB* 200 MG ONE; +Lactated Ringers 1000 ML Bag* 1,000 ML IV SCH; +Lidocaine 2% PF * 5 ML VIAL ONE; +Lidocaine 4% TOPICAL* 50 ML TOP.SOLN ONE; +Midazolam* 1 MG/ML 5 ML VIAL (5 MG) ONE; -NS 0.9% 1000 ML* 1,000 ML IV ONE; +Naloxone* 0.4 MG/ML 1 ML VIAL IV PRN; +Onabotulinimtoxina 100 UNITS* VIAL ONE; -Ondansetron INJ* 2 MG/ML VIAL IV ONE; +Ondansetron INJ* 2 MG/ML VIAL ONE; +Oxymetazoline 0.05% NASAL SPR* 15 ML BTL ONE; +Propofol* 10 MG/ML 20 ML BTL ONE
[2018-09-08] MEDS: HYDROmorphone INJ1* 1 MG/ML SYRINGE IV PRN ×4 (13:41→14:21)
--- NOTE | 2018-09-08 14:23 | OP ---
DATE OF OPERATION: 09/08/18 - [facility] DATE OF : 73 SURGEON: Bennie Gudino MD PRE-OP DIAGNOSIS: Chronic neurogenic cough. POST-OP DIAGNOSIS: Chronic neurogenic cough. OPERATIVE PROCEDURE: Microlaryngoscopy with bilateral Botox injection with 10 units of Botox into each vocal cord under general endotracheal anesthesia. COMPLICATIONS: None. DISPOSITION: Good. SPECIMENS: None. ESTIMATED BLOOD LOSS: None. DESCRIPTION OF PROCEDURE: The patient was taken to the operating room, placed in the supine position on the operating table. General anesthesia was induced and she was orotracheally intubated, turned and draped for the surgery. The tooth guard was placed on the upper teeth and then the laryngoscope was inserted to supraglottic larynx to visualize the vocal cords and suspended from the suspension system. Her vocal cords were anesthetized with 4% lidocaine and oxymetazoline on pledgets. These were removed, bringing the microscope. I then injected 10 units of Botox into each vocal cord. The dilution was 100 units/2 mL, so I injected 0.1 mL into each vocal cord. The laryngoscope and tooth guard were released and removed. The patient tolerated this procedure well, no complications, and transferred to the recovery room in stable condition. [id number]/[facility] #: [id number] [facility]
[2018-09-08 14:24] VITALS: BP 106/76
== END | disposition home or self-care (01) ==
LOC: OR 08:57
PROVIDERS: ATTEND Otolaryngology
DX: J38.3 Other diseases of vocal cords (principal); J38.5 Laryngeal spasm; R05 Cough; G43.909 Migraine, unspecified, not intractable, without status migrainosus; Z88.8 Allergy status to other drugs, medicaments and biological substances
CPT/HCPCS: A9270-GY; J0585; J1170; J2250; J2405; J2704

== ENCOUNTER 2018-09-10 14:44 | Emergency (ER) | payer MEDICARE ==
--- OUTSIDE RECORDS SUMMARY | 2018-09-10 15:01 | XMS REPORT | Continuity of Care Document ---
:1975 External Reference #:[id number] Author Name Miranda Miller PA-C Address [address] [place] [address] Care Team Providers Name Role Phone Itzel Stewart M.D., R.D. Care Team Information Boiling Tub Operator Unavailable Itzel Stewart M.D., R.D. Primary Care Physician Unavailable Payers Date Identification Numbers Payment Provider Subscriber Policy Number: [id number] Medicare-[facility] [employer] Meg Gagnon PayID: [id number] [address] [place] [address] Social History Type Date Description Comments Sex Unknown Occupation Disabled Tobacco Use Start: Unknown Never Smoked Cigarettes Tobacco Use Start: Unknown Never Smoked Cigars Tobacco Use Start: Unknown Never Smoked A Pipe Smokeless Tobacco Never Used Smokeless Tobacco ETOH Use Denies alcohol use Tobacco Use Start: Unknown Patient has never smoked Smoking Status Reviewed: 06/12/18 Patient has never smoked Allergies, Adverse Reactions, Alerts Active Allergies Reaction Severity Comments Date Compazine 04/23/2013 Perphenazine 04/23/2013 Imitrex 04/23/2013 Clotrimazole 04/23/2013 Soma 04/23/2013 Reglan 04/23/2013 Haldol 05/03/2018 Inactive Allergies Toradol 04/23/2013 Medications Active Medications SIG Qnty Indications Ordering Date Provider Hydromorphone HCL take 1 pill Day 5tabs Niraj Menard 09/08/2018 2mg Tablets 1 pill at 2pm Tabatha Gudion and at bedtime, then Day 2 take one pill twice a day, then Day 3 take 1/2 pill twice a day Hydromorphone HCL take 1 to 2 6tabs Niraj Menard 06/16/2018 2mg Tablets tablets by mouth Tabatha Gudino as needed for headache, 6 mg maximum daily dose Ondansetron HCL prn Itzel Stewart 4mg Tablets Oz [place] Fluoxetine HCL 1 tab daily [place] 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 as needed Unknown - 05/03/2018 Levothyroxine Sodium Take One Tablet Unknown - By Mouth Every 11/01/2017 50mcg Tablets Day Estradiol Gavi Garza - 0.5mg Tablets 11/01/2017 Hydromorphone HCL take 1 to 2 6tabs Niraj Menard - 2mg tablets by Tabatha Gudino 06/16/2018 Tablets mouth as needed for headache, 6 mg maximum daily dose Folic Acid Unknown - 11/01/2017 Unknown - 11/01/2017 Estrace Unknown - 04/23/2013 Crinone Unknown - 8% 04/23/2013 Progesterone Unknown - 50mg/ml 04/23/2013 Prozac Unknown - 20mg 11/01/2017 Compazine Unknown - 04/23/2013 Vital Signs Date Vital Result Comment 06/12/2018 10:54am Weight 182.00 lb Weight 82.555 kg Height 63 inches 5'3" Height in cm's 160.0 cm BMI (Body Mass Index) 32.2 kg/m2 05/16/2018 10:53am Weight 182.00 lb Weight 82.555 kg Height 63 inches 5'3" Height in cm's 160.0 cm BMI (Body Mass Index) 32.2 kg/m2 05/03/2018 10:01am BP Systolic 81 mmHg BP Diastolic 48 mmHg Heart Rate 129 /min Respiratory Rate 18 /min Weight 182.00 lb Weight 82.555 kg Height 63 inches 5'3" Height in cm's 160.0 cm BMI (Body Mass Index) 32.2 kg/m2 03/22/2018 9:03am Weight 183.00 lb Weight 83.009 kg Height 63 inches 5'3" Height in cm's 160.0 cm BMI (Body Mass Index) 32.4 kg/m2 11/01/2017 2:06pm Weight 183.00 lb Weight 83.009 kg Height 63 inches 5'3" Height in cm's 160.0 cm BMI (Body Mass Index) 32.4 kg/m2 O2 % BldC Oximetry 97 % 04/23/2013 10:59am BP Systolic 137 mmHg BP Diastolic 104 mmHg Heart Rate 88 /min Respiratory Rate 16 /min Weight 204.00 lb Weight 92.534 kg Procedures Date Code Description Status 06/16/2018 81306 EMG Guidance for Chemodenervatio Completed 06/16/2018 24753 Chemodenervation Of Larynx Unilateral, Percutaneous, Completed Electromyogr 05/16/2018 34822 Demonstration/Eval. Of Patient Utilization Of Completed Spacer/Nebulizer 05/16/2018 10454 Inhalation Treatment Pressurized Or Nonpres.Acute Completed Airwy.Obstruct. 05/05/2018 77828 Esophagoscopy Completed 05/05/2018 74366 Bronchoscopy Diagnostic Completed 03/22/2018 47024 Fiberoptic Laryngoscopy Completed 11/01/2017 62250 Fiberoptic Laryngoscopy Completed 04/23/2013 45428 Fiberoptic Laryngoscopy Completed Encounters Type Date Location Provider Dx Diagnosis Office Visit 08/02/2018 3:45p [place] 04/04/07 Maxx Sy M.D. 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 K22.4 Dyskinesia of esophagus Office Visit 03/22/2018 9:15a [place],After 04/04/07 Maxx Sy Cough Tabatha R05 Cough K21.9 Gastro-esophageal reflux disease without esophagitis K21.9 Gastro-esophageal reflux disease without esophagitis Office Visit 11/01/2017 1:45p [place],After 04/04/07 Maxx Sy M.D. H61.23 Impacted cerumen, bilateral Office Visit 04/23/2013 [place],After [place], 530.81 Reflux, 11:00a 04/04/07 [place] REPRODUCTIVE SURGEON Gastroesophageal 462-2 Sore Throat 462-2 Sore Throat Plan of Treatment 08/02/2018 - Niraj Gudino M.D.R05 CoughComments:The patient thinks she had a little bit of a benefit from the BOTOX. But it was not enough. It was very difficult doing it under MAC. She did see the Director Of Tax Services. He seems to concur with my assessment that this might be a neurologic problem. There is no perfect analogy, but you can think of it asa tic. the plan is for microlaryngoscopy with vocal cord BOTOX injection. I will inject 5 mg into each vocal cord. This will probably leave her with a breathy voice for a period of time. She is willing to accept this. She may also have a little difficulty swallowing. I will need a transoral laryngeal injection needle.J38.3 Other diseases of vocal vzkglT02.5 Laryngeal spasm
--- NOTE | 2018-09-10 16:22 | ED ---
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 When the patient went home, she reports being hypertensive and waking up the following day with a migraine, difficulty breathing, and chest pressure. The patient rates the pain 0/10 in severity. Symptoms aggravated by nothing. Symptoms alleviated by nothing. Patient reports difficulty swallowing, heaviness of diaphragm, dry cough, and hoarse voice. PMHx of HTN, pulmonary edema, headaches, depression, migraine with vomiting. PSHx of , tonsillectomy, laparoscopy. Patient does not use tobacco, substances, or alcohol. FHx of bipolar disorder, depression, but no DM. Patient requested another physician to see her because she had an unpleasant experience in the last time she came to the ER and I treated her. Therefore, the patient will be signed out to Dr. Avelar. - History of Current Complaint Chief Complaint: EDShortnessOfBreath Time Seen by Provider: 09/10/18 16:01 Hx Obtained From: Patient Onset/Duration: Lasting Days - After surgery on 09/08, Still Present Dyspnea At: Rest Aggravating Factors: Nothing Alleviating Factors: Nothing Associated Signs & Symptoms: Cough (Nonproductive), Chest Pain Unrelated to Cough - Allergy/Home Medications Allergies/Adverse Reactions: Allergies Allergy/AdvReac Type Severity Reaction Status Date / Time prochlorperazine Allergy Severe See Comment Verified 09/10/18 14:53 [From Compazine] promethazine Allergy Severe See Comment Verified 09/10/18 14:53 clotrimazole Allergy Unknown Verified 09/10/18 14:53 Reaction Details perphenazine Allergy Unknown Verified 09/10/18 14:53 Reaction Details fentanyl AdvReac Severe Headache Verified 09/10/18 14:53 metoclopramide [From Reglan] AdvReac Mild See Comment Verified 09/10/18 14:53 carisoprodol [From Soma] AdvReac "PASSED Verified 09/10/18 14:53 OUT" haloperidol AdvReac Agitation Verified 09/10/18 14:53 hydralazine AdvReac Anxiety Verified 09/10/18 14:53 magnesium sulfate AdvReac See Comment Verified 09/10/18 14:53 sumatriptan [From Imitrex] AdvReac See Comment Verified 09/10/18 14:53 tramadol [From Ultram] AdvReac See Comment Verified 09/10/18 14:53 STEROIDS AdvReac See Comment Uncoded 09/10/18 14:53 PMH/Surg Hx/FS Hx/Imm Hx Previously Healthy: No Endocrine/Hematology History: Reports: Hx Thyroid Disease - hypothyroidism?, Hx Anemia - during and after of child- NO PROBLEMS NOW Denies: Hx Diabetes Cardiovascular History: Reports: Hx Hypertension - BODERLINE Denies: Hx Congestive Heart Failure, Hx Pacemaker/ICD, Other Cardiovascular Problems/Disorders Respiratory History: Reports: Hx Pulmonary Edema - 2014 after C section-Pre eclampsia, Hx Seasonal Allergies, Hx Sleep Apnea - ?-POSSIBLY- NEVER BEEN TESTED FOR-ONCE MENTIONED IN 2013 PER PATIENT, Other Respiratory Problems/ Disorders - History of Pneumonia Denies: Hx Asthma, Hx Chronic Obstructive Pulmonary Disease (COPD) GI History: Denies: Hx Gastroesophageal Reflux Disease, Other GI Disorders History: Reports: Other Problems/Disorders Denies: Hx Renal Disease Musculoskeletal History: Reports: Hx Back Problems, Other Musculoskeletal History - Bilateral Carpal Tunnel Release Denies: Hx Rheumatoid Arthritis, Hx Osteoporosis Sensory History: Reports: Hx Contacts or Glasses - Glasses and contacts-will wear glasses day of surgery Denies: Hx Legally Blind, Hx Deafness, Hx Hearing Aid Opthamlomology History: Reports: Hx Contacts or Glasses - Glasses and contacts- will wear glasses day of surgery Denies: Hx Legally Blind Neurological History: Reports: Hx Migraine - CHRONIC-PRN MEDICATION DILAUDID AND ZOFRAN, Hx Seizures - when in her 20's reports 2-none since, Other Neuro Impairments/Disorders - PTSD-SEES A THERAPIST- AND ON MEDICATION FOR Psychiatric History: Reports: Hx Anxiety - history of, not recent, Hx Depression , Hx Community Mental Health Tx, Hx Suicide Attempt - hx of 'accidental overdose on prescription medications', Other Psychiatric Issues/Disorders Denies: Hx Eating Disorder, Hx Panic Disorder, Hx of Violent Episodes Against Others - Surgical History Surgery Procedure, Year, and Place: . BILATERAL CARPAL TUNNEL RELEASE- 2016. TONSILLECTOMY. LAPAROSCOPY-REMOVAL OF ENDOMETRIOSIS AND REMOVAL OF [id number]. BOTOX INJECTION INTO HER VOCAL CORDS 2018 Hx Anesthesia Reactions: Yes - Epidural didn't work with C Section,fentanyl can trigger migraine - Immunization History Date of Tetanus Vaccine: Up to date Date of Influenza Vaccine: None for Fall 2012 Infectious Disease History: No Infectious Disease History: Denies: Hx Hepatitis, Hx Human Immunodeficiency Virus (HIV), Traveled Outside the [place] in Last 30 Days - Family History Known Family History: Positive: Other - mother: bipolar disorder; depression: grandmother, uncle Negative: Diabetes - Social History Alcohol Use: None Hx Substance Use: No Substance Use Type: Reports: None Substance Use Comment - Amount & Last Used: None confirmed by patient Hx Tobacco Use: No Smoking Status (MU): Never Smoked Tobacco Have You Smoked in the Last Year: No Review of Systems Positive: Chest Pain Positive: Shortness Of Breath, Cough - Dry Positive: Abdominal Pain Positive: Headache - Migraine All Other Systems Reviewed And Are Negative: Yes Physical Exam - Summary Physical Exam Summary: Patient declined any physical exam. Triage Information Reviewed: Yes Vital Signs On Initial Exam: Initial Vitals Temp Pulse Resp BP Pulse Ox 98.1 F 130 22 157/117 98 09/10/18 14:48 09/10/18 14:48 09/10/18 14:48 09/10/18 14:48 09/10/18 14:48 Vital Signs Reviewed: Yes Diagnostics - Vital Signs Vital Signs Temp Pulse Resp BP Pulse Ox 09/10/18 15:50 113 27 99 09/10/18 15:49 120 13 138/94 99 09/10/18 14:48 98.1 F 130 22 157/117 98 - Laboratory Lab Statement: Any lab studies that have been ordered have been reviewed, and results considered in the medical decision making process. Discharge - Sign-Out/Discharge Documenting (check all that apply): Sign-Out Patient Signing out patient TO: Tay Avelar - Patient requested change of physician - Discharge Plan Referrals: Itzel Landeros MD [Primary Care Provider] - - Attestation Statements Document Initiated by Scribe: Yes Documenting Scribe: Jim Sahni Provider For Whom Scribe is Documenting (Include Credential): Christopher Metz MD Scribe Attestation: Jim Ching, scribed for Christopher Metz MD on 09/10/18 at 1638.
--- NOTE | 2018-09-10 16:54 | ED ---
Complex/Multi-Sys Presentation - HPI Summary HPI Summary: A 43 y/o F presents to ED c/o dyspnea onset [employer] D[employer]. Patient gets Botox on her vocal chords and feels like it's causing her to have trouble breathing and choking with foods. Shes had pulmonary edema years ago when and she states todays sx feel today. It feels that someone is pushing on my diaphragm. Associated sx: migraines, elevated BP. She sees Dr. Sánchez, neurology. She takes Dilaudid for her migraines. Patient is tearful at bedside. - History Of Current Complaint Chief Complaint: EDShortnessOfBreath Time Seen by Provider: 09/10/18 16:01 Hx Obtained From: Patient Onset/Duration: Still Present Timing: Constant Severity Currently: Moderate Severity Initially: Moderate Associated Signs And Symptoms: Positive: Other - pos: dysphagia, migraine, elevated BP - Allergies/Home Medications Allergies/Adverse Reactions: Allergies Allergy/AdvReac Type Severity Reaction Status Date / Time prochlorperazine Allergy Severe See Comment Verified 09/10/18 14:53 [From Compazine] promethazine Allergy Severe See Comment Verified 09/10/18 14:53 clotrimazole Allergy Unknown Verified 09/10/18 14:53 Reaction Details perphenazine Allergy Unknown Verified 09/10/18 14:53 Reaction Details fentanyl AdvReac Severe Headache Verified 09/10/18 14:53 metoclopramide [From Reglan] AdvReac Mild See Comment Verified 09/10/18 14:53 carisoprodol [From Soma] AdvReac "PASSED Verified 09/10/18 14:53 OUT" haloperidol AdvReac Agitation Verified 09/10/18 14:53 hydralazine AdvReac Anxiety Verified 09/10/18 14:53 magnesium sulfate AdvReac See Comment Verified 09/10/18 14:53 sumatriptan [From Imitrex] AdvReac See Comment Verified 09/10/18 14:53 tramadol [From Ultram] AdvReac See Comment Verified 09/10/18 14:53 STEROIDS AdvReac See Comment Uncoded 09/10/18 14:53 PMH/Surg Hx/FS Hx/Imm Hx Previously Healthy: No Endocrine/Hematology History: Reports: Hx Thyroid Disease - hypothyroidism?, Hx Anemia - during and after of child- NO PROBLEMS NOW Denies: Hx Diabetes Cardiovascular History: Reports: Hx Hypertension - BODERLINE Denies: Hx Congestive Heart Failure, Hx Pacemaker/ICD, Other Cardiovascular Problems/Disorders Respiratory History: Reports: Hx Pulmonary Edema - 2014 after C section-Pre eclampsia, Hx Seasonal Allergies, Hx Sleep Apnea - ?-POSSIBLY- NEVER BEEN TESTED FOR-ONCE MENTIONED IN 2013 PER PATIENT, Other Respiratory Problems/ Disorders - History of Pneumonia Denies: Hx Asthma, Hx Chronic Obstructive Pulmonary Disease (COPD) GI History: Denies: Hx Gastroesophageal Reflux Disease, Other GI Disorders History: Reports: Other Problems/Disorders Denies: Hx Renal Disease Musculoskeletal History: Reports: Hx Back Problems, Other Musculoskeletal History - Bilateral Carpal Tunnel Release Denies: Hx Rheumatoid Arthritis, Hx Osteoporosis Sensory History: Reports: Hx Contacts or Glasses - Glasses and contacts-will wear glasses day of surgery Denies: Hx Legally Blind Opthamlomology History: Reports: Hx Contacts or Glasses - Glasses and contacts- will wear glasses day of surgery Denies: Hx Legally Blind Neurological History: Reports: Hx Migraine - CHRONIC-PRN MEDICATION DILAUDID AND ZOFRAN, Hx Seizures - when in her 20's reports 2-none since, Other Neuro Impairments/Disorders - PTSD-SEES A THERAPIST- AND ON MEDICATION FOR Psychiatric History: Reports: Hx Anxiety - history of, not recent, Hx Depression , Hx Community Mental Health Tx, Hx Suicide Attempt - hx of 'accidental overdose on prescription medications', Other Psychiatric Issues/Disorders Denies: Hx Eating Disorder, Hx Panic Disorder, Hx of Violent Episodes Against Others - Surgical History Surgery Procedure, Year, and Place: . BILATERAL CARPAL TUNNEL RELEASE- 2016. TONSILLECTOMY. LAPAROSCOPY-REMOVAL OF ENDOMETRIOSIS AND REMOVAL OF [id number]. BOTOX INJECTION INTO HER VOCAL CORDS 2019 Hx Anesthesia Reactions: Yes - Epidural didn't work with C Section,fentanyl can trigger migraine - Immunization History Date of Tetanus Vaccine: Up to date Date of Influenza Vaccine: None for Fall 2012 Infectious Disease History: No Infectious Disease History: Denies: Hx Hepatitis, Hx Human Immunodeficiency Virus (HIV), Traveled Outside the [place] in Last 30 Days - Family History Known Family History: Positive: Other - mother: bipolar disorder; depression: grandmother, uncle Negative: Diabetes - Social History Occupation: Disabled Lives: With Family Alcohol Use: None Hx Substance Use: No Substance Use Type: Reports: None Substance Use Comment - Amount & Last Used: None confirmed by patient Hx Tobacco Use: No Smoking Status (MU): Never Smoked Tobacco Have You Smoked in the Last Year: No Review of Systems Positive: Other - pos: dysphagia Positive: Other - pos: elevated BP Respiratory: Other - pos: dyspnea Positive: Headache - migraine All Other Systems Reviewed And Are Negative: Yes Physical Exam - Summary Physical Exam Summary: Appearance: The patient is well-nourished in no acute distress and in no acute pain. Skin: The skin is warm and dry and skin color reflects adequate perfusion. HEENT: The head is normocephalic and atraumatic. The pupils are equal and reactive. The conjunctivae are clear and without drainage. Nares are patent and without drainage. Mouth reveals moist mucous membranes and the throat is without erythema and exudate. The external ears are intact. The ear canals are patent and without drainage. The tympanic membranes are intact. Neck: The neck is supple with full range of motion and non-tender. No JVD. There are no carotid bruits. There is no neck vein distension. Respiratory: Chest is non-tender. Lungs are clear to auscultation and breath sounds are symmetrical and equal. Cardiovascular: Heart is regular rate and rhythm. There is no murmur or rub auscultated. There is no peripheral edema and pulses are symmetrical and equal. Abdomen: The abdomen is soft and non-tender. There are normal bowel sounds heard in all four quadrants and there is no organomegaly palpated. Musculoskeletal: There is no back tenderness noted. Extremities are non-tender with full range of motion. There is good capillary refill. There is no peripheral edema or calf tenderness elicited. Neurological: Patient is alert and oriented to person, place and time. The patient has symmetrical motor strength in all four extremities. Cranial nerves are grossly intact. Deep tendon reflexes are symmetrical and equal in all four extremities. Psychiatric: The patient has an appropriate affect and does not exhibit any anxiety or depression. Triage Information Reviewed: Yes Vital Signs On Initial Exam: Initial Vitals Temp Pulse Resp BP Pulse Ox 98.1 F 130 22 157/117 98 09/10/18 14:48 09/10/18 14:48 09/10/18 14:48 09/10/18 14:48 09/10/18 14:48 Vital Signs Reviewed: Yes Diagnostics - Vital Signs Vital Signs Temp Pulse Resp BP Pulse Ox 09/10/18 16:19 115 16 138/96 99 09/10/18 16:00 98 12 95 09/10/18 15:50 113 27 99 09/10/18 15:49 120 13 138/94 99 09/10/18 14:48 98.1 F 130 22 157/117 98 - Laboratory Lab Statement: Any lab studies that have been ordered have been reviewed, and results considered in the medical decision making process. - EKG 1502 Cardiac Rate: Tachycardia - 121 bpm EKG Rhythm: Sinus Tachycardia ST Segment: Normal - No STEMI Ectopy: None Re-Evaluation - Re-Evaluation 1 Re-Evaluation Time: 17:35 Change: Unchanged Comment: Discussing consult with Dr. Vaz, neuro. Complex Multi-Symp Course/Dx Course Of Treatment: Ms. Gagnon presented with a variable story of coughing and thinking she has pulmonary edema. Her complaints seemed to boil down to a migraine headache for which she wanted Dilaudid and Zofran IV. I stop revealed that she gets about 8 mg of by mouth Dilaudid a day until the seventh when she was given a prescription for 10 mg to last her 3 days. I confirmed with Dr. Alfaro with Dr. Sánchez does not prescribe Dilaudid for her migraine headaches. Presented this is she insists that Dr. Sánchez is matted people in the emergency department for not giving her Dilaudid. I confirmed with Tahira Lopez that she was prescribed Dilaudid but that at the patient's insistence she was tapered down quickly under the supervision of her using clonidine. She states that that is true and that she does not want a prescription for Dilaudid and does not want Dilaudid take home. She does however want a shot of IV Dilaudid which works for her migraine headaches. I warned her that according to the I stop she has not withdrawn already from her Dilaudid habit but she insists that she is already stopped. She cannot explain where the rest of the pills of gone although clearly she should be out at this point. I explained that if she was not withdrawn at this point giving her IV Dilaudid would slow and aggravated her withdrawal. I agreed to give her a dose of IV Dilaudid and Zofran for her headache at this time. I reiterated that this would not be a habit in the emergency department and would not likely occurred a second time. It is her responsibility to follow up with her doctors to have rescue pain medications which at this point she says she does not want and is refusing a prescription. - Diagnoses Provider Diagnoses: Migraine headache - Physician Notifications Discussed Care Of Patient With: Carolyn Vaz - neuro Time Discussed With Above Provider: 17:13 Instructed by Provider To: Other - They do not prescribe Dilaudid to her, nor recommend dilaudid for her migraine in ED. Discharge - Sign-Out/Discharge Documenting (check all that apply): Patient Departure - D/C Patient Received Moderate/Deep Sedation with Procedure: No - Discharge Plan Condition: Stable Disposition: HOME Patient Education Materials: Migraine Headache (ED) Referrals: Itzel Landeros MD [Primary Care Provider] - 1 Week Cuco Sánchez MD [Medical Doctor] - (As scheduled. ) Additional Instructions: Follow up with Dr. Landeros this week. Follow up with Dr. Sánchez as scheduled. Please return to the ED if you experience new or worsening symptoms. - Billing Disposition and Condition Condition: STABLE Disposition: Home - Attestation Statements Document Initiated by Scribe: Yes Documenting Scribe: Jesús Stinson Provider For Whom Jamieibkate is Documenting (Include Credential): Dr. Tay Avelar MD Scribe Attestation: Jesús Ching scribed for Dr. Tay Avelar MD on 09/10/18 at 1852. Scribe Documentation Reviewed: Yes Provider Attestation: The documentation as recorded by the Jesús bolanos accurately reflects the service I personally performed and the decisions made by me, Dr. Tay Avelar MD Status of Scribe Document: Viewed Consult Consult: 1727: Consult with Seema Lopez NP at [facility].
[2018-09-10] MEDS ORDERED: Ondansetron INJ* 2 MG/ML VIAL IV ONE ×2 (17:51→19:05)
[2018-09-10] MEDS ORDERED: HYDROmorphone INJ1* 1 MG/ML SYRINGE IV SLOW PU ONE ×2 (17:51→19:05)
[2018-09-10] MEDS ORDERED: NS 0.9% 1000 ML** 1,000 ML IV ONE (17:51)
[2018-09-10 19:32] VITALS: BP 165/108
== END 2018-09-10 19:31 | disposition home or self-care (01) ==
LOC: ED 14:44
DX: G43.909 Migraine, unspecified, not intractable, without status migrainosus (principal); I10 Essential (primary) hypertension; Z88.5 Allergy status to narcotic agent; Z88.2 Allergy status to sulfonamides; Z88.8 Allergy status to other drugs, medicaments and biological substances
CPT/HCPCS: 93005; 96361; 96374; 96375; 99282; J1170; J2405

== ENCOUNTER → 2018-10-15 15:19 | Emergency (ER) | payer MEDICARE ==
[2018-10-15 15:26] VITALS: BP 143/114
== END | disposition left against medical advice (07) ==
LOC: ED 15:19
DX: Z53.21 Procedure and treatment not carried out due to patient leaving prior to being seen by health care provider (principal)
CPT/HCPCS: 99282

== ENCOUNTER 2018-10-18 15:18 | Emergency (ER) | payer MEDICARE ==
[2018-10-18] MEDS ORDERED: Ondansetron INJ* 2 MG/ML VIAL IV ONE (15:31)
[2018-10-18] MEDS ORDERED: NS 0.9% 1000 ML** 3,000 ML IV ONE (15:31)
[2018-10-18] MEDS ORDERED: HYDROmorphone INJ1* 1 MG/ML SYRINGE IV ONE ×2 (15:32→16:23)
--- NOTE | 2018-10-18 15:37 | ED ---
Complex/Multi-Sys Presentation - HPI Summary HPI Summary: This patient is a 43 year old F presenting to [facility] by EMS with a chief complaint of sever vomiting for the past 2-3 days. Pt reports she takes Aimovig , a medication that prevents migraines. She receives it by mail, however it never came. So pt instead took her rescue medication and has been vomiting ever since. Pt also has a migraine. Per triage, the patient rates the pain 10/10 in severity. - History Of Current Complaint Chief Complaint: KCNausea/Vomiting Time Seen by Provider: 10/18/18 15:26 Hx Obtained From: Patient Onset/Duration: Lasting Days Timing: Constant Character: Migraine Aggravating Factor(s): food Associated Signs And Symptoms: Positive: Headache, Vomiting - Allergies/Home Medications Allergies/Adverse Reactions: Allergies Allergy/AdvReac Type Severity Reaction Status Date / Time prochlorperazine Allergy Severe See Comment Verified 10/15/18 15:27 [From Compazine] promethazine Allergy Severe See Comment Verified 10/15/18 15:27 clotrimazole Allergy Unknown Verified 10/15/18 15:27 Reaction Details perphenazine Allergy Unknown Verified 10/15/18 15:27 Reaction Details fentanyl AdvReac Severe Headache Verified 10/15/18 15:27 metoclopramide [From Reglan] AdvReac Mild See Comment Verified 10/15/18 15:27 carisoprodol [From Soma] AdvReac "PASSED Verified 10/15/18 15:27 OUT" haloperidol AdvReac Agitation Verified 10/15/18 15:27 hydralazine AdvReac Anxiety Verified 10/15/18 15:27 magnesium sulfate AdvReac See Comment Verified 10/15/18 15:27 sumatriptan [From Imitrex] AdvReac See Comment Verified 10/15/18 15:27 tramadol [From Ultram] AdvReac See Comment Verified 10/15/18 15:27 STEROIDS AdvReac See Comment Uncoded 09/10/18 14:53 Home Medications: Home Medications Atenolol TAB* [Tenormin TAB* 25 MG] 12.5 mg PO DAILY 10/18/18 [History Confirmed 10/18/18] Erenumab-Aooe [Aimovig Autoinjector] 70 mg SUBCUT MONTHLY 10/18/18 [History Confirmed 10/18/18] FLUoxetine CAP* [PROzac CAP*] 60 mg PO DAILY 10/18/18 [History Confirmed ] Metoprolol Tartrate TAB* [Lopressor TAB*] 12.5 mg PO BID 10/18/18 [History Confirmed 10/18/18] Zolpidem TAB* [Ambien TAB*] 10 mg PO BEDTIME PRN 10/18/18 [History Confirmed ] clonazePAM TAB(*) [KlonoPIN TAB(*)] 1 mg PO BID 10/18/18 [History Confirmed ] PMH/Surg Hx/FS Hx/Imm Hx Endocrine/Hematology History: Reports: Hx Thyroid Disease - hypothyroidism?, Hx Anemia - during and after of child- NO PROBLEMS NOW Denies: Hx Diabetes Cardiovascular History: Reports: Hx Hypertension - BODERLINE Denies: Hx Congestive Heart Failure, Hx Pacemaker/ICD, Other Cardiovascular Problems/Disorders Respiratory History: Reports: Hx Pulmonary Edema - 2014 after C section-Pre eclampsia, Hx Seasonal Allergies, Hx Sleep Apnea - ?-POSSIBLY- NEVER BEEN TESTED FOR-ONCE MENTIONED IN 2013 PER PATIENT, Other Respiratory Problems/ Disorders - History of Pneumonia Denies: Hx Asthma, Hx Chronic Obstructive Pulmonary Disease (COPD) GI History: Denies: Hx Gastroesophageal Reflux Disease, Other GI Disorders History: Reports: Other Problems/Disorders Denies: Hx Renal Disease Musculoskeletal History: Reports: Hx Back Problems, Other Musculoskeletal History - Bilateral Carpal Tunnel Release Denies: Hx Rheumatoid Arthritis, Hx Osteoporosis Sensory History: Reports: Hx Contacts or Glasses - Glasses and contacts-will wear glasses day of surgery Denies: Hx Legally Blind Opthamlomology History: Reports: Hx Contacts or Glasses - Glasses and contacts- will wear glasses day of surgery Denies: Hx Legally Blind Neurological History: Reports: Hx Migraine - CHRONIC-PRN MEDICATION DILAUDID AND ZOFRAN, Hx Seizures - when in her 20's reports 2-none since, Other Neuro Impairments/Disorders - PTSD-SEES A THERAPIST- AND ON MEDICATION FOR Psychiatric History: Reports: Hx Anxiety - history of, not recent, Hx Depression , Hx Community Mental Health Tx, Hx Suicide Attempt - hx of 'accidental overdose on prescription medications', Other Psychiatric Issues/Disorders Denies: Hx Eating Disorder, Hx Panic Disorder, Hx of Violent Episodes Against Others - Surgical History Surgery Procedure, Year, and Place: . BILATERAL CARPAL TUNNEL RELEASE- 2016. TONSILLECTOMY. LAPAROSCOPY-REMOVAL OF ENDOMETRIOSIS AND REMOVAL OF [id number]. BOTOX INJECTION INTO HER VOCAL CORDS 2018 Hx Anesthesia Reactions: Yes - Epidural didn't work with C Section,fentanyl can trigger migraine - Immunization History Date of Tetanus Vaccine: Up to date Date of Influenza Vaccine: None for Fall 2012 Infectious Disease History: Denies: Hx Hepatitis, Hx Human Immunodeficiency Virus (HIV) - Family History Known Family History: Positive: Other - mother: bipolar disorder; depression: grandmother, uncle Negative: Diabetes - Social History Occupation: Disabled Alcohol Use: None Hx Substance Use: No Substance Use Type: Reports: None Substance Use Comment - Amount & Last Used: None confirmed by patient Hx Tobacco Use: No Smoking Status (MU): Never Smoked Tobacco Have You Smoked in the Last Year: No Review of Systems Positive: Vomiting Positive: Headache All Other Systems Reviewed And Are Negative: Yes Physical Exam - Summary Physical Exam Summary: Appearance: Well-appearing, Well-nourished, lying in bed comfortably Skin: Warm, dry, no obvious rash Eyes: sclera anicteric, no conjunctival pallor ENT: mucous membranes moist, pharynx appears normal Neck: Supple, nontender Respiratory: Clear to auscultation, no signs of respiratory distress Cardiovascular: Normal S1, S2. No murmurs. Normal distal pulses in tibial and radial bilaterally. Abdomen: Soft, nontender, normal active bowel sounds present Musculoskeletal: Normal, Strength/ROM Intact Neurological: A&Ox3, awake and alert, mentation is normal, speech is fluent and appropriate Psychiatric: affect is normal, does not appear anxious or depressed Triage Information Reviewed: Yes Vital Signs On Initial Exam: Initial Vital Signs Temp 97.9 F 10/18/18 15:29 Pulse 136 10/18/18 15:29 Resp 18 10/18/18 15:29 BP 124/106 10/18/18 15:29 Pulse Ox 99 10/18/18 15:29 Vital Signs Reviewed: Yes Complex Multi-Symp Course/Dx Course Of Treatment: This patient is a 43 year old F presenting to [facility] by EMS with a chief complaint of sever vomiting for the past 2-3 days. Pt reports she takes Aimovig, a medication that prevents migraines. She receives it by mail, however it never came. So pt instead took her rescue medication and has been vomiting ever since. Pt also has a migraine. Patient will be discharged with follow up from PCP. The patient is agreeable with this plan. - Diagnoses Provider Diagnoses: Migraine headache Discharge - Sign-Out/Discharge Documenting (check all that apply): Patient Departure - Discharge Patient Received Moderate/Deep Sedation with Procedure: No - Discharge Plan Condition: Improved Disposition: HOME Patient Education Materials: Migraine Headache (ED) Referrals: Itzel Landeros MD [Primary Care Provider] - Additional Instructions: Drink plenty of fluids to make up for the past couple of days. You have the dilaudid to get you through the evening. - Attestation Statements Document Initiated by Scribe: Yes Documenting Scribe: Yohana Rahman Provider For Whom Jaimeibe is Documenting (Include Credential): Dr. Tay Mckee MD Scribe Attestation: Yohana Ching, scribed for Dr. Tay Mckee MD on 10/18/18 at 1755. Status of Scribe Document: Ready
[2018-10-18 16:15] VITALS: BP 125/90
--- OUTSIDE RECORDS SUMMARY | 2018-10-18 16:30 | XMS REPORT | Continuity of Care Document ---
:1975 External Reference #:[id number] Author Name Niraj Gudino M.D. Address [address] [place] [address] Care Team Providers Name Role Phone Itzel Stewart M.D., R.D. Care Team Information Senior It Architect Unavailable Itzel Stewart M.D., R.D. Primary Care Physician Unavailable Payers Date Identification Numbers Payment Provider Subscriber Policy Number: [id number] [employer] [employer] Meg Gagnon PayID: [id number] [address] [place] [address] Social History Type Date Description Comments Sex Unknown Occupation Disabled Tobacco Use Start: Unknown Never Smoked Cigarettes Tobacco Use Start: Unknown Never Smoked Cigars Tobacco Use Start: Unknown Never Smoked A Pipe Smokeless Tobacco Never Used Smokeless Tobacco ETOH Use Denies alcohol use Tobacco Use Start: Unknown Patient has never smoked Smoking Status Reviewed: 10/16/18 Patient has never smoked Allergies, Adverse Reactions, Alerts Active Allergies Reaction Severity Comments Date Compazine 04/23/2013 Perphenazine 04/23/2013 Imitrex 04/23/2013 Clotrimazole 04/23/2013 Soma 04/23/2013 Reglan 04/23/2013 Haldol 05/03/2018 Inactive Allergies Toradol 04/23/2013 Medications Active Medications SIG Qnty Indications Ordering Date Provider Hydromorphone HCL take 1 pill Day 5tabs Niraj Menard 09/08/2018 2mg Tablets 1 pill at 2pm Tabatha Gudino and at bedtime, then Day 2 take one pill twice a day, then Day 3 take 1/2 pill twice a day Hydromorphone HCL take 1 to 2 6tabs Niraj Menard 06/16/2018 2mg Tablets tablets by mouth Tabatha Gudino as needed for headache, 6 mg maximum daily dose Dilantin Unknown 30mg Capsules Aimovig Unknown 70mg/ml Solution Auto-Inject Atenolol Take 1 2 Tablet Unknown 25mg Tablets By Mouth Daily Cyclobenzaprine HCL Take One Tablet Unknown 10mg By Mouth Twice A Tablets Day as Needed For Pain Or Muscle Tigh Pantoprazole Sodium 1 tab twice Unknown 40mg daily Tablets DR Fluoxetine HCL 1 tab daily Mary Preston 20mg Capsules INSURANCE COMPLIANCE ANALYST Ondansetron HCL prn Itzel Stewart 4mg Tablets Tabatha RHarriettDHarriett History Medications Incruse Ellipta inhale 1 puff 30units R05 Niraj Menard 03/22/2018 - by mouth daily Tabatha Gudino 05/03/2018 62.5mcg/Inh Aerosol No Active Medications Unknown 04/23/2013 - 04/23/2013 Carafate Itzel Stewart - 1GM/10ML Tabatha RHima 05/03/2018 Suspension Cough Suppressant ? as needed Unknown - 05/03/2018 Levothyroxine Sodium Take One Tablet Unknown - By Mouth Every 11/01/2017 50mcg Tablets Day Estradiol Gavi Garzae - 0.5mg Tablets 11/01/2017 Hydromorphone HCL take [...] 04/23/2013 Vital Signs Date Vital Result Comment 10/17/2018 11:00am Weight 175.00 lb Weight 79.380 kg Height 63 inches 5'3" Height in cm's 160.0 cm BMI (Body Mass Index) 31.0 kg/m2 06/12/2018 10:54am Weight 182.00 lb Weight 82.555 [...] 92.534 kg Procedures Date Code Description Status 09/08/2018 37429 Laryngoscopy With Operating Micro, W/Injection Completed 06/16/2018 99512 EMG Guidance for Chemodenervatio Completed 06/16/2018 25263 Chemodenervation Of Larynx Unilateral, Percutaneous, Completed Electromyogr 05/16/2018 20368 Demonstration/Eval. Of Patient Utilization Of Completed Spacer/Nebulizer 05/16/2018 81599 Inhalation Treatment Pressurized Or Nonpres.Acute Completed Airwy.Obstruct. 05/05/2018 48825 Esophagoscopy Completed 05/05/2018 85185 Bronchoscopy Diagnostic Completed 03/22/2018 57021 Fiberoptic Laryngoscopy Completed 11/01/2017 93536 Fiberoptic Laryngoscopy Completed 04/23/2013 54473 Fiberoptic Laryngoscopy Completed Encounters Type Date Location Provider Dx Diagnosis Office Visit 10/17/2018 10:45a [facility] 04/04/07 Maxx Sy M.D. Office Visit 08/02/2018 3:45p [facility] 04/04/07 Maxx Sy M.D. J38.3 Other diseases of vocal cords J38.5 Laryngeal spasm Office Visit 06/12/2018 [facility] Niraj Lea38.5 Laryngeal spasm 11:00a 04/04/07 Tabatha Gudino Office Visit 05/16/2018 10:45a [facility] 04/04/07 Maxx Sy M.D. K22.4 Dyskinesia of esophagus Office Visit 05/03/2018 10:15a [facility] 04/04/07 Maxx Sy M.D. K22.4 Dyskinesia of esophagus Office Visit 03/22/2018 9:15a [facility] 04/04/07 Maxx Sy M.D. R0Cynthia Cough K21.9 Gastro-esophageal reflux disease without esophagitis K21.9 Gastro-esophageal reflux disease without esophagitis Office Visit 11/01/2017 1:45p [facility] 04/04/07 Maxx Sy M.D. H61.23 Impacted cerumen, bilateral Office Visit 04/23/2013 [facility] [place], 530.81 Reflux, 11:00a 04/04/07 Helen INSURANCE COMPLIANCE ANALYST Gastroesophageal 462-2 Sore Throat 462-2 Sore Throat Plan of Treatment 10/17/2018 - Niraj Gudino M.D.R05 CoughComments:The patient did very well for about a month after the injection but she lost her voice. Recently her voice is starting to return and she is having her coughing again and she is having some difficulty swallowing. I don't know how to explain the swallowing difficulties with the return of function. I would think this would be an acute side effect of the injection and not present as her vocal cord function returns. At this point with the development swallowing problems I do not want to re inject her. I think we need to see how that progresses. I suspect it will get better. In general, pureed and thick is easier but she says she is not getting this down. In one sense I am encouraged that she didbetter after the injection. But I can't risk making her swallowing worse with another injection so we need to give her some time to see how she does. She will let me know next week how she is doing.
== END 2018-10-18 16:42 | disposition home or self-care (01) ==
LOC: ED 15:18
DX: G43.909 Migraine, unspecified, not intractable, without status migrainosus (principal); R11.10 Vomiting, unspecified; I10 Essential (primary) hypertension; Z88.5 Allergy status to narcotic agent; Z88.8 Allergy status to other drugs, medicaments and biological substances
CPT/HCPCS: 96361; 96374; 96375; 96376; 99282; J1170; J2405

== ENCOUNTER 2018-12-18 19:29 | Emergency (ER) | payer MEDICARE ==
[2018-12-19] MEDS ORDERED: HYDROmorphone INJ* 0.5 MG/0.5 ML SYRINGE IV ONE (00:41)
[2018-12-19] MEDS ORDERED: NS 0.9% 1000 ML** 2,000 ML IV ONE (00:41)
[2018-12-19] MEDS ORDERED: Ondansetron INJ* 2 MG/ML VIAL IV ONE (00:42)
[2018-12-19] MEDS ORDERED: HYDROmorphone INJ1* 1 MG/ML SYRINGE IV ONE (02:00)
--- NOTE | 2018-12-19 02:40 | ED ---
Headache - HPI Summary HPI Summary: Patient with history of migraines complains of migraine starting at 2 AM. Patient states she is out of her rescue medication. States she is prescribed hydromorphone 2 mg for migraines. States Dr. Sánchez called to make sure she would receive Dilaudid for her headache. Patient states her headaches are normally treated here in the ER with 2 mg Dilaudid, Zofran and fluids. Denies fever, neck stiffness, focal deficits, cough, sore throat, neck stiffness, CP, SOB, N/V/D, abdominal pain, change in urine, change in BM. - History Of Current Complaint Chief Complaint: EDHeadache Stated Complaint: HEADACHE PER PT Time Seen by Provider: 12/19/18 00:28 Hx Obtained From: Patient Onset/Duration: Gradual Onset, Started hours ago Initially Headache Was: Severe Currently Pain Is: Severe Timing: Constant Character: Sharp, Throbbing, Pressure Location of Headache: Diffuse Aggravating Factor: Bright Lights Allevating Factors: Nothing Associated Signs And Symptoms: Negative - Allergies/Home Medications Allergies/Adverse Reactions: Allergies Allergy/AdvReac Type Severity Reaction Status Date / Time prochlorperazine Allergy Severe See Comment Verified 12/18/18 19:36 [From Compazine] promethazine Allergy Severe See Comment Verified 12/18/18 19:36 clotrimazole Allergy Unknown Verified 12/18/18 19:36 Reaction Details perphenazine Allergy Unknown Verified 12/18/18 19:36 Reaction Details fentanyl AdvReac Severe Headache Verified 12/18/18 19:36 metoclopramide [From Reglan] AdvReac Mild See Comment Verified 12/18/18 19:36 carisoprodol [From Soma] AdvReac "PASSED Verified 12/18/18 19:36 OUT" haloperidol AdvReac Agitation Verified 12/18/18 19:36 hydralazine AdvReac Anxiety Verified 12/18/18 19:36 magnesium sulfate AdvReac See Comment Verified 12/18/18 19:36 sumatriptan [From Imitrex] AdvReac See Comment Verified 12/18/18 19:36 tramadol [From Ultram] AdvReac See Comment Verified 12/18/18 19:36 STEROIDS AdvReac See Comment Uncoded 12/18/18 19:36 PMH/Surg Hx/FS Hx/Imm Hx Endocrine/Hematology History: Reports: Hx Thyroid Disease - hypothyroidism?, Hx Anemia - during and after of child- NO PROBLEMS NOW Denies: Hx Diabetes Cardiovascular History: Reports: Hx Hypertension - BODERLINE Denies: Hx Congestive Heart Failure, Hx Pacemaker/ICD, Other Cardiovascular Problems/Disorders Respiratory History: Reports: Hx Pulmonary Edema - 2014 after C section-Pre eclampsia, Hx Seasonal Allergies, Hx Sleep Apnea - ?-POSSIBLY- NEVER BEEN TESTED FOR-ONCE MENTIONED IN 2013 PER PATIENT, Other Respiratory Problems/ Disorders - History of Pneumonia Denies: Hx Asthma, Hx Chronic Obstructive Pulmonary Disease (COPD) GI History: Denies: Hx Gastroesophageal Reflux Disease, Other GI Disorders History: Reports: Other Problems/Disorders Denies: Hx Renal Disease Musculoskeletal History: Reports: Hx Back Problems, Other Musculoskeletal History - Bilateral Carpal Tunnel Release Denies: Hx Rheumatoid Arthritis, Hx Osteoporosis Sensory History: Reports: Hx Contacts or Glasses - Glasses and contacts-will wear glasses day of surgery Denies: Hx Legally Blind Opthamlomology History: Reports: Hx Contacts or Glasses - Glasses and contacts- will wear glasses day of surgery Denies: Hx Legally Blind Neurological History: Reports: Hx Migraine - CHRONIC-PRN MEDICATION DILAUDID AND ZOFRAN, Hx Seizures - when in her 20's reports 2-none since, Other Neuro Impairments/Disorders - PTSD-SEES A THERAPIST- AND ON MEDICATION FOR Psychiatric History: Reports: Hx Anxiety - history of, not recent, Hx Depression , Hx Community Mental Health Tx, Hx Suicide Attempt - hx of 'accidental overdose on prescription medications', Other Psychiatric Issues/Disorders Denies: Hx Eating Disorder, Hx Panic Disorder, Hx of Violent Episodes Against Others - Surgical History Surgery Procedure, Year, and Place: . BILATERAL CARPAL TUNNEL RELEASE- 2016. TONSILLECTOMY. LAPAROSCOPY-REMOVAL OF ENDOMETRIOSIS AND REMOVAL OF [id number]. BOTOX INJECTION INTO HER VOCAL CORDS 2018 Hx Anesthesia Reactions: Yes - Epidural didn't work with C Section,fentanyl can trigger migraine - Immunization History Date of Tetanus Vaccine: Up to date Date of Influenza Vaccine: None for Fall 2012 Immunizations Up to Date: Yes Infectious Disease History: No Infectious Disease History: Denies: Hx Hepatitis, Hx Human Immunodeficiency Virus (HIV), Traveled Outside the [place] in Last 30 Days - Family History Known Family History: Positive: Other - mother: bipolar disorder; depression: grandmother, uncle Negative: Diabetes - Social History Alcohol Use: None Hx Substance Use: No Substance Use Type: Reports: None Substance Use Comment - Amount & Last Used: None confirmed by patient Hx Tobacco Use: No Smoking Status (MU): Never Smoked Tobacco Have You Smoked in the Last Year: No Review of Systems Constitutional: Negative Positive: Photophobia ENT: Negative Cardiovascular: Negative Respiratory: Negative Gastrointestinal: Negative Genitourinary: Negative Musculoskeletal: Negative Skin: Negative Positive: Headache Psychological: Normal All Other Systems Reviewed And Are Negative: Yes Physical Exam - Summary Physical Exam Summary: Neuro exam normal. Full range of motion of neck. Triage Information Reviewed: Yes Vital Signs On Initial Exam: Initial Vitals Temp Pulse Resp BP Pulse Ox 99 F 128 18 153/111 97 12/18/18 19:34 12/18/18 19:34 12/18/18 19:34 12/18/18 19:34 12/18/18 19:34 Vital Signs Reviewed: Yes Appearance: Positive: Well-Appearing Skin: Positive: Warm Head/Face: Positive: Normal Head/Face Inspection Eyes: Positive: Normal Neck: Positive: Supple Respiratory/Lung Sounds: Positive: Clear to Auscultation Cardiovascular: Positive: Normal Abdomen Description: Positive: Nontender Musculoskeletal: Positive: Normal Neurological: Positive: Normal Psychiatric: Positive: Normal AVPU Assessment: Alert - [place] Coma Scale Best Eye Response: 4 - Spontaneous Best Motor Response: 6 - Obeys Commands Best Verbal Response: 5 - Oriented Coma Scale Total: 15 Diagnostics - Vital Signs Vital Signs Temp Pulse Resp BP Pulse Ox 12/19/18 02:03 118 137/88 94 12/19/18 02:00 120 93 12/19/18 01:39 104 139/91 100 12/19/18 01:37 18 12/19/18 01:35 110 97 12/19/18 01:34 110 155/102 99 12/19/18 00:04 98.5 F 126 15 148/107 99 12/18/18 19:34 99 F 128 18 153/111 97 - Laboratory Lab Statement: Any lab studies that have been ordered have been reviewed, and results considered in the medical decision making process. Headache Course/Dx - Course Course Of Treatment: Patient with history of migraines complains of migraine starting at 2 AM. Patient states she is out of her rescue medication. States she is prescribed hydromorphone 2 mg for migraines. States Dr. Sánchez called to make sure she would receive Dilaudid for her headache. Patient states her headaches are normally treated here in the ER with 2 mg Dilaudid, Zofran and fluids. Denies fever, neck stiffness, focal deficits, cough, sore throat, neck stiffness, CP, SOB, N/V/D, abdominal pain, change in urine, change in BM. Vital signs within normal limits. Total HCS patient receives rx for hydromorphone 2 mg regularly. After Dilaudid 2 mg IV, Zofran and fluids patient stated symptoms had improved. Patient recovered requested another 2 mg of Dilaudid before going home. This was refused. Patient was advised to follow -up with her primary care or neurologist for migraine management. - Diagnoses Provider Diagnoses: Migraine Discharge ED - Sign-Out/Discharge Documenting (check all that apply): Patient Departure Patient Received Moderate/Deep Sedation with Procedure: No - Discharge Plan Condition: Stable Disposition: HOME Patient Education Materials: Migraine Headache (ED) Referrals: Itzel Landeros MD [Primary Care Provider] - Additional Instructions: Follow-up with primary care for medical management of migraines. - Billing Disposition and Condition Condition: STABLE Disposition: Home
[2018-12-19 02:52] VITALS: BP 125/78
== END 2018-12-19 02:40 | disposition home or self-care (01) ==
LOC: ED 19:29
DX: G43.909 Migraine, unspecified, not intractable, without status migrainosus (principal); E03.9 Hypothyroidism, unspecified; I10 Essential (primary) hypertension; F41.9 Anxiety disorder, unspecified
CPT/HCPCS: 96374; 96375; 99282; J1170; J2405

== ENCOUNTER 2019-04-18 17:03 | Emergency (ER) | payer MEDICARE ==
--- OUTSIDE RECORDS SUMMARY | 2019-04-18 17:22 | XMS REPORT | Continuity of Care Document ---
:1975 External Reference #:[id number] Author Name Hebert Lopez DO, MPH Address [address] [place] [address], [address] [place] [address] Care Team Providers Name Role Phone Itzel Stewart M.D. 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 Medicine Problems Description No Information Available Social History Type Date Description Comments Sex Unknown ETOH Use Denies alcohol use Tobacco Use Start: Unknown Patient has never smoked Recreational Drug Use Denies Drug Use Smoking Status Reviewed: 04/09/19 Patient has never smoked Allergies, Adverse Reactions, Alerts Active Allergies Reaction Severity Comments Date Compazine 02/13/2019 Perphenazine 02/13/2019 Imitrex 02/13/2019 Ketorolac Tromethamine 02/13/2019 Clotrimazole 02/13/2019 Soma increased falls 02/13/2019 Magnesium sensitivity 02/13/2019 Codeine Itching 02/13/2019 Fentanyl Nausea, vomiting 02/13/2019 Haldol altered mental status 02/13/2019 Medications Active Medications SIG Qnty Indications Ordering Provider Date Dilaudid si every day 15tabs Hebert Lopez DO, 02/13/2019 2mg Tablets as needed MPH Fluoxetine HCL sig : 1 by mouth Unknown 90mg every day Capsules DR Clonazepam si by mouth Unknown 0.5mg three times a day Tablets as directed Aimovig Unknown 70mg/ml Solution Auto-Inject Vitamin D3 1 by mouth daily Unknown 50mcg (2000 Ut) Capsules Ranitidine HCL 2 by mouth daily Unknown 150mg Tablets Multivitamin Adults 1 by mouth daily Unknown Tablets Omeprazole 1 by mouth every Unknown 40mg day Capsules DR Mark si by mouth Unknown 4mg Tablets every 6 to 8 hours as directed Excedrin Migraine 2 by mouth Unknown [id number] Tablets Tretinoin Unknown 0.1% Cream History Medications Promethazine HCL si/2-1 by mouth 30tabs Hebert Lopez, 02/19/2019 - 25mg every 12 hours as LAMINE ALVAREZ 03/06/2019 Tablets directed Immunizations Description No Information Available Vital Signs Date Vital Result Comment 04/09/2019 10:11am BP Systolic 122 mmHg BP Diastolic 74 mmHg Heart Rate 76 /min Respiratory Rate 20 /min Height 63 inches 5'3" Weight 176.00 lb Pain Level 6 Pain at this time. Pain Level With Medicine 6 on average with meds Pain Level Without Medicine 9 without meds BMI (Body Mass Index) 31.2 kg/m2 03/06/2019 9:29am BP Systolic 128 mmHg BP Diastolic 84 mmHg Heart Rate 82 /min Respiratory Rate 20 /min Height 63 inches 5'3" Weight 178.00 lb Pain Level 6 Pain at this time. 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 Office Visit 02/13/2019 1:45p Main Office as Hebert Lopez G89.29 Other chronic Of 05/05/13 DO MPH pain G43.009 Migraine w/o aura, not intractable, w/o status migrainosus R05 Cough I10 Essential (primary) hypertension Z79.891 assisted (current) use of opiate analgesic Z13.31 Encounter for screening for depression Z71.89 Other specified counseling Z71.3 Dietary counseling and surveillance Assessments Date Code Description Provider 04/09/2019 G89.29 Other chronic pain Lopez, Hebert, DO, MPH 04/09/2019 G43.009 Migraine without aura, not intractable, Lopez, Hebert, DO , MPH without status migrainosus 04/09/2019 Z79.891 assisted (current) use of opiate analgesic Lopez, Hebert , DO, MPH 03/06/2019 G89.29 Other chronic pain Lopez, Hebert, DO, MPH 03/06/2019 G43.009 Migraine without aura, not intractable, Lopez, Hebert, DO , MPH without status migrainosus 03/06/2019 Z79.891 assisted (current) use of opiate analgesic Lopez, Hebert , DO, MPH 02/13/2019 G89.29 Other chronic pain Lopez, Hebert, DO, MPH 02/13/2019 G43.009 Migraine without aura, not intractable, Lopez, Hebert, DO , MPH without status migrainosus 02/13/2019 R05 Cough Lopez, Hebert, DO, MPH 02/13/2019 I10 Essential (primary) hypertension Lopez, Hebert, DO, MPH 02/13/2019 Z79.891 assisted (current) use of opiate analgesic Lopez, Hebert , DO, MPH 02/13/2019 Z13.31 Encounter for screening for depression Lopez, Hebert, DO, MPH 02/13/2019 Z71.89 Other specified counseling Lopez, Hebert, DO, MPH 02/13/2019 Z71.3 Dietary counseling and surveillance Lopez, Hebert, DO, MPH Plan of Treatment 04/09/2019 - Lopez, Hebert, DO, MPHG89.29 Other chronic painComments:Chronic. Symptoms and complaints discussed and reviewed today. No significant changes in physical findings. Continue current medical pain management.G43.009 Migraine without aura, not intractable, without status migrainosusComments:Chronic. Followed by PCP. Will follow in regard to Pain management and associated medications.Side effects discussed; anticipatory guidance given. Patient clearly understands and agrees with all medical treatments and suggestions. All medicines prescribed are adequate and appropriate for this patient's complaint of pain, medical history, physical, and personal goals.Goals of Treatment are to provideadequate and appropriate multidisciplinary medical pain management to increase/ maintain patient's quality of life and functionality while maintaining satisfactory side effect profile and minimizing mcfp end-organ damage.Z79.891 assisted (current) use of opiate analgesicNew Labs:Urine Drug Screen, Ordered: 04/09/19Comments:Urine drug screen sample taken today to monitor opiate use and to monitor use of illicit substances.Will discuss results at next appointment.The following tests were ordered:6 AM, AMPH, RADHA, VIJAYA, BUP, CARIS, COCM, ETG, FENT, MCSHSG, OPI, OXY, PCP, TAPEN, XTSY, ZOLP. A urine drug test (UDT) was ordered for this patient and collected on site today. Creatinine has been ordered as well for specimen validity, not for kidney function. Preliminary UDT results are not final and should not be used to determine patient care or plan of treatment. Initially a qualitative immunoassay screen will bedone. Any inconsistent or positive findings will be further tested with a more comprehensive quantitative confirmation LCMS study. It is part of the treatment process of prescribing controlled substances and is considered standard of care.AllComments:Continue current medical pain management ; injection therapy, osteopathic manipulation, PT / modalities, and consults as needed to manage chronic pain.Non - opioid pain management discussed and optionsdiscussed.Side effects discussed; anticipatory guidance given. Patient clearly understand and agree with all medical treatments and suggestions. All medicines prescribed are adequate and appropriate for this patient's complaint of pain, medical history, physical, and personal goals.Goals of Treatment are to provide adequate and appropriate multidisciplinary medical pain management to increase/ maintain patient's quality of life and functionality while maintaining satisfactory side effect profile andminimizing termination clerk end-organ damage. Importance of regular nutrition throughout the day discussed.Activity as toleratedContinue with PCP Functional Status Description No Information Available Mental Status Description No Information Available Referrals Description No Information Available
--- OUTSIDE RECORDS SUMMARY | 2019-04-18 17:22 | XMS REPORT | Continuity of Care Document ---
:1975 External Reference #:[id number] Author Name Hebert Lopez DO, MPH Address [address] [facility], [address] [place] [address] Care Team Providers Name Role Phone Itzel Stewart M.D. 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 Medicine Problems Description No Information Available Social History Type Date Description Comments Sex Unknown ETOH Use Denies alcohol use Tobacco Use Start: Unknown Patient has never smoked Recreational Drug Use Denies Drug Use Smoking Status Reviewed: 03/06/19 Patient has never smoked Allergies, Adverse Reactions, Alerts Active Allergies Reaction Severity Comments Date Compazine 02/13/2019 Perphenazine 02/13/2019 Imitrex 02/13/2019 Ketorolac Tromethamine 02/13/2019 Clotrimazole 02/13/2019 Soma increased falls 02/13/2019 Magnesium sensitivity 02/13/2019 Codeine Itching 02/13/2019 Fentanyl Nausea, vomiting 02/13/2019 Haldol altered mental status 02/13/2019 Medications Active Medications SIG Qnty Indications Ordering Provider Date Dilaudid si -2 every 60tabs Hebert Lopez DO, 02/13/2019 2mg Tablets day as needed MPH Fluoxetine HCL sig : [...] directed Excedrin Migraine 2 by mouth Unknown [id number] Tablets Tretinoin Unknown 0.1% Cream History Medications Promethazine HCL si/2-1 by mouth 30tabs Hebert Lopez, 02/19/2019 - 25mg every 12 hours as DO MPH 03/06/2019 Tablets directed Immunizations Description No Information Available Vital Signs Date Vital Result Comment 03/06/2019 9:29am BP Systolic 128 mmHg BP Diastolic 84 mmHg Heart Rate 82 /min Respiratory Rate 20 /min Height 63 inches 5'3" Weight 178.00 lb Pain Level 6 Pain at this time. Pain Level With Medicine 6 on average with meds Pain Level Without Medicine 9 without meds BMI (Body Mass Index) 31.5 kg/m2 02/13/2019 1:57pm BP Systolic 128 mmHg BP Diastolic 80 mmHg Heart Rate 84 /min Respiratory Rate 20 /min Height 63 inches 5'3" Weight 183.00 lb Pain Level 6 Pain at this time. Pain Level Without Medicine 10 without meds BMI (Body Mass Index) 32.4 kg/m2 Results Description No Information Available Procedures Date Code Description Status 02/13/2019 78291 Brief Emotional/Behav Assessment W/ Scoring Doc Per Completed Standard Inst Medical Devices Description No Information Available Encounters Type Date Location Provider Dx Diagnosis Office Visit 02/13/2019 Main Office as Of Hebert Lopez DO, G89.29 Other chronic pain 1:45p 05/05/13 MPH G43.009 Migraine w/o aura, not intractable, w/o status migrainosus R05 Cough I10 Essential (primary) hypertension Z79.891 intermediate (current) use of opiate analgesic Z13.31 Encounter for screening for depression Z71.89 Other specified counseling Z71.3 Dietary counseling and surveillance Assessments Date Code Description Provider 03/06/2019 G89.29 Other chronic pain Hebert Lopez DO, MPH 03/06/2019 G43.009 Migraine without aura, not intractable, Hebert Lopez DO MPH without status migrainosus 03/06/2019 Z79.891 intermediate (current) use of opiate analgesic Lopez, Hebert , DO, MPH 02/13/2019 G89.29 Other chronic pain Hebert Lopez DO MPH 02/13/2019 G43.009 Migraine without aura, not intractable, Hebert Lopez DO MPH without status migrainosus 02/13/2019 R05 Cough Hebert Lopez DO MPH 02/13/2019 I10 Essential (primary) hypertension Hebert Lopez DO MPH 02/13/2019 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 Symptoms and complaints [...] maintaining satisfactory side effect profile and minimizing halfway end-organ damage.Z79.891 terminal superintendent (current) use of opiate analgesicNew Labs:Urine Drug Screen, Ordered: 03/06/19Comments: Urine drug screen sample taken today to monitor [...] considered standard of care.AllComments:Continue current medical pain management; injection therapy, osteopathic manipulation, PT / modalities, [...] while maintaining satisfactory side effect profile andminimizing oil heaterman end-organ damage. Importance of regular nutrition throughout the day discussed.Activity as toleratedContinue with PCP Functional Status Description No Information Available Mental Status Description No Information Available Referrals Description No Information Available
[2019-04-18] MEDS ORDERED: Diazepam TAB(*) 5 MG PO ONE (20:16)
[2019-04-18] MEDS ORDERED: Ketorolac TAB * 10 MG TAB PO ONE (20:16)
--- NOTE | 2019-04-18 20:20 | ED ---
Adult Trauma - HPI Summary HPI Summary: Patient complains of right ankle and right side neck pain status post mechanical fall this evening. States migraine headache after sitting in waiting room for hours. History of migraines. Denies any other pain, injury or symptoms. - History of Current Complaint Chief Complaint: EDExtremityLower Stated Complaint: FALL/RT FOOT INJURY PER PT Time Seen by Provider: 04/18/19 20:12 Hx Obtained From: Patient Mechanism of Injury: Fall Ambulatory at the Scene: Yes Loss of Consciousness: no loss of consciousness Onset/Duration: Started Hours Ago Onset of Pain: Immediate Onset Severity: Severe Current Severity: Severe Pain Intensity: 9 Pain Scale Used: 0-10 Numeric Location: Neck, Extremities Aggravating Factor(s): Movement, Ambulation Alleviating Factor(s): Rest Associated Signs & Symptoms: Positive: Negative - Additional Pertinent History Primary Care Physician: ASHLEY - Allergy/Home Medications Allergies/Adverse Reactions: Allergies Allergy/AdvReac Type Severity Reaction Status Date / Time prochlorperazine Allergy Severe See Comment Verified 04/18/19 17:09 [From Compazine] promethazine Allergy Severe See Comment Verified 04/18/19 17:09 clotrimazole Allergy Unknown Verified 04/18/19 17:09 Reaction Details perphenazine Allergy Unknown Verified 04/18/19 17:09 Reaction Details fentanyl AdvReac Severe Headache Verified 04/18/19 17:09 metoclopramide [From Reglan] AdvReac Mild See Comment Verified 04/18/19 17:09 carisoprodol [From Soma] AdvReac "PASSED Verified 04/18/19 17:09 OUT" haloperidol AdvReac Agitation Verified 04/18/19 17:09 hydralazine AdvReac Anxiety Verified 04/18/19 17:09 magnesium sulfate AdvReac See Comment Verified 04/18/19 17:09 sumatriptan [From Imitrex] AdvReac See Comment Verified 04/18/19 17:09 tramadol [From Ultram] AdvReac See Comment Verified 04/18/19 17:09 STEROIDS AdvReac See Comment Uncoded 04/18/19 17:09 PMH/Surg Hx/FS Hx/Imm Hx Endocrine/Hematology History: Reports: Hx Thyroid Disease - hypothyroidism?, Hx Anemia - during and after of child- NO PROBLEMS NOW Denies: Hx Diabetes Cardiovascular History: Reports: Hx Hypertension - BODERLINE Denies: Hx Congestive Heart Failure, Hx Pacemaker/ICD, Other Cardiovascular Problems/Disorders Respiratory History: Reports: Hx Pulmonary Edema - 2014 after C section-Pre eclampsia, Hx Seasonal Allergies, Hx Sleep Apnea - ?-POSSIBLY- NEVER BEEN TESTED FOR-ONCE MENTIONED IN 2013 PER PATIENT, Other Respiratory Problems/ Disorders - History of Pneumonia Denies: Hx Asthma, Hx Chronic Obstructive Pulmonary Disease (COPD) GI History: Denies: Hx Gastroesophageal Reflux Disease, Other GI Disorders History: Reports: Other Problems/Disorders Denies: Hx Renal Disease Musculoskeletal History: Reports: Hx Back Problems, Other Musculoskeletal History - Bilateral Carpal Tunnel Release Denies: Hx Rheumatoid Arthritis, Hx Osteoporosis Sensory History: Reports: Hx Contacts or Glasses - Glasses and contacts-will wear glasses day of surgery Denies: Hx Legally Blind Opthamlomology History: Reports: Hx Contacts or Glasses - Glasses and contacts- will wear glasses day of surgery Denies: Hx Legally Blind EENT History: Denies: Hx Deafness Neurological History: Reports: Hx Migraine - CHRONIC-PRN MEDICATION DILAUDID AND ZOFRAN, Hx Seizures - when in her 20's reports 2-none since, Other Neuro Impairments/Disorders - PTSD-SEES A THERAPIST- AND ON MEDICATION FOR Psychiatric History: Reports: Hx Anxiety - history of, not recent, Hx Depression , Hx Community Mental Health Tx, Hx Suicide Attempt - hx of 'accidental overdose on prescription medications', Other Psychiatric Issues/Disorders Denies: Hx Eating Disorder, Hx Panic Disorder, Hx of Violent Episodes Against Others - Surgical History Surgery Procedure, Year, and Place: . BILATERAL CARPAL TUNNEL RELEASE- 2016. TONSILLECTOMY. LAPAROSCOPY-REMOVAL OF ENDOMETRIOSIS AND REMOVAL OF [id number]. BOTOX INJECTION INTO HER VOCAL CORDS 2019 Hx Anesthesia Reactions: Yes - Epidural didn't work with C Section,fentanyl can trigger migraine - Immunization History Date of Tetanus Vaccine: Up to date Date of Influenza Vaccine: None for Fall 2012 Infectious Disease History: No Infectious Disease History: Denies: Hx Hepatitis, Hx Human Immunodeficiency Virus (HIV), Traveled Outside the [place] in Last 30 Days - Family History Known Family History: Positive: Other - mother: bipolar disorder; depression: grandmother, uncle Negative: Diabetes - Social History Alcohol Use: None Hx Substance Use: No Substance Use Type: Reports: None Substance Use Comment - Amount & Last Used: None confirmed by patient Hx Tobacco Use: No Smoking Status (MU): Never Smoked Tobacco Have You Smoked in the Last Year: No Review of Systems Constitutional: Negative Eyes: Negative ENT: Negative Cardiovascular: Negative Respiratory: Negative Gastrointestinal: Negative Genitourinary: Negative Musculoskeletal: Other Skin: Negative Neurological: Negative Psychological: Normal All Other Systems Reviewed And Are Negative: Yes Physical Exam - Summary Physical Exam Summary: , Mouth, face, head and neck. Tenderness right sided paraspinal muscles of C- spine. No ecchymosis, erythema, deformity, swelling noted to right ankle. Tenderness to palpation of right lateral ankle. PMS intact distally. Triage Information Reviewed: Yes Vital Signs On Initial Exam: Initial Vitals Temp Pulse Resp BP Pulse Ox 98.2 F 137 16 151/113 99 04/18/19 17:06 04/18/19 17:06 04/18/19 17:06 04/18/19 17:06 04/18/19 17:06 Vital Signs Reviewed: Yes Appearance: Positive: Well-Appearing Skin: Positive: Warm Head/Face: Positive: Normal Head/Face Inspection Eyes: Positive: Normal ENT: Positive: Normal ENT inspection Dental: Negative: Dental Fracture @, Bleeding Neck: Positive: Supple Respiratory/Lung Sounds: Positive: Clear to Auscultation Cardiovascular: Positive: Normal Abdomen Description: Positive: Nontender Musculoskeletal: Positive: Normal Neurological: Positive: Normal Psychiatric: Positive: Normal AVPU Assessment: Alert - Iqra Coma Scale Best Eye Response: 4 - Spontaneous Best Motor Response: 6 - Obeys Commands Best Verbal Response: 5 - Oriented Coma Scale Total: 15 Procedures - Sedation Patient Received Moderate/Deep Sedation with Procedure: No Diagnostics - Vital Signs Vital Signs Temp Pulse Resp BP Pulse Ox 04/18/19 18:45 98.8 F 132 15 133/112 99 04/18/19 17:06 98.2 F 137 16 151/113 99 - Laboratory Lab Statement: Any lab studies that have been ordered have been reviewed, and results considered in the medical decision making process. Adult Trauma Course/Dx - Course Course Of Treatment: Patient complains of right ankle and right side neck pain status post mechanical fall this evening. States migraine headache after sitting in waiting room for hours. History of migraines. Denies any other pain , injury or symptoms. Vital signs are normal limits. X-ray of right ankle and foot negative. Ankle gel splint applied. Patient persistently asking for Dilaudid for migraine. Symptoms resolved after Dilaudid 0.5 mg IV 2. - Diagnoses Provider Diagnoses: Right ankle sprain, Muscle spasms of neck, Migraine Discharge ED - Sign-Out/Discharge Documenting (check all that apply): Patient Departure - Discharge Plan Condition: Stable Disposition: HOME Prescriptions: Cyclobenzaprine TAB* [Flexeril 10 MG TAB*] 10 mg PO TID PRN 4 Days #12 tab PRN Reason: Pain - Moderate Patient Education Materials: Ankle Sprain (ED), Migraine Headache (ED), Ankle Stirrup Splint (ED), Muscle Spasm (ED) Referrals: Itzel Landeros MD [Primary Care Provider] - Patricia Hogue MD [Medical Doctor] - Additional Instructions: Take Flexeril as directed for neck muscle pain. Alternate ibuprofen 600 mg with Tylenol 650 mg every 3 hours for ankle pain. Ice 15 minutes at a time each hour for the first 48 hours. Weightbearing as tolerated. If ankle pain continues more than a week follow-up with orthopedics Dr. Hogue for further evaluation. - Billing Disposition and Condition Condition: STABLE Disposition: Home
[2019-04-18] MEDS ORDERED: HYDROmorphone INJ* 0.5 MG/0.5 ML SYRINGE IV ONE ×2 (21:00→21:51)
[2019-04-18] MEDS ORDERED: NS 0.9% 1000 ML** 1,000 ML IV ONE (21:00)
[2019-04-18] MEDS ORDERED: Ondansetron INJ* 2 MG/ML VIAL IV ONE (21:01)
[2019-04-18] MEDS ORDERED: Acetaminophen TAB* 325 MG PO ONE (21:50)
[2019-04-18 23:11] VITALS: BP 116/87
== END 2019-04-18 23:07 | disposition home or self-care (01) ==
LOC: ED 17:03
DX: S93.401A Sprain of unspecified ligament of right ankle, initial encounter (principal); W19.XXXA Unspecified fall, initial encounter; Y92.9 Unspecified place or not applicable; M62.838 Other muscle spasm; G43.909 Migraine, unspecified, not intractable, without status migrainosus; I10 Essential (primary) hypertension; Z88.5 Allergy status to narcotic agent; Z88.8 Allergy status to other drugs, medicaments and biological substances
CPT/HCPCS: 96361; 96374; 96375; 96376; 99283; A9270-GY; J1170; J2405

== ENCOUNTER 2019-06-12 20:11 | Emergency (ER) | payer MEDICARE ==
--- OUTSIDE RECORDS SUMMARY | 2019-06-12 21:40 | XMS REPORT | Continuity of Care Document ---
:1975 External Reference #:[id number] Author Name Nando Cervantes MD Address [address] [place] [address] Care Team Providers Name Role Phone Tay Barnhart MD - Emergency Care Team Information [facility] Unavailable Medicine Hector Smith MD - Otolaryngic Care Team Information [facility] [place] [place] Allergy [facility] Sleep Lab Care Team Information [place] [facility] [place] [place] [phone] Patricai Hogue MD - Surgery of the Care Team Information [facility] [place] [place] Hand Dianna Selby MD - Surgery Care Team Information [facility] [place] [place] Acosta Isaac - Neurology Care Team Information [place] [facility] [place] [place] [phone] Braydon Bran - Neurology Care Team Information [facility] [place] [place] Rogelio Quiles MD - Sports Medicine Care Team Information [place] [facility] [place] [place] [phone] Hector Silver MD - Cardiovascular Care Team Information [facility] [place] [place] Disease Anuradha Dukes MD - Physical Care Team Information [place] [facility] [place] [place] [phone] Medicine & Rehabilitation Neeraj Hankins - Addiction Medicine Care Team Information [facility] [place] Problems Active Problems Provider Date Migraine with typical aura Itzel Stewart M.D., R.D. Onset: 02/08/2011 Depressive disorder Itzel Stewart M.D., R.D. Onset: 02/08/2011 Generalized anxiety disorder Itzel Stewart M.D., R.D. Onset: 02/08/2011 Social History Type Date Description Comments Sex Unknown Tobacco Use Start: Unknown Never Smoked Cigarettes ETOH Use Denies alcohol use Tobacco Use Start: Unknown Patient has never smoked Exercise Type/Frequency Exercises regularly Allergies, Adverse Reactions, Alerts Active Allergies Reaction Severity Comments Date Compazine 08/04/2009 Perphenazine IV only, ok po or Im 08/04/2009 Imitrex headaches got worse in her 08/04/2009 20's More headaches 08/04/2009 Toradol Does not work 08/04/2009 Clotrimazole 08/04/2009 Soma Very groggy, fell once 02/08/2011 Magnesium very sensitive to it so 07/09/2013 needs tiny doses Codeine itching 12/07/2017 Fentanyl vomiting 02/08/2018 Haldol Altered mental status Severe 08/23/2018 Reglan Ok oral, not IV 02/05/2019 Medications Active Medications SIG Qnty Indications Ordering Date Provider Dilaudid take 1-2 tablets 6tabs J01.90 Itzel Stewart, 02/05/2019 2mg Tablets as needed for Tabatha R.D. migraine Reglan 1 po at headache 30tabs G43.009 Itzel Stewart, 01/22/2019 10mg Tablets onset. August Oz Mays repeat in 8 hours if needed Tretinoin Apply sparingly 20gm Itzel Stewart, 12/20/2018 0.1% Cream to affected areas Oz Mays every other day. Zolpidem Tartrate take one tablet 10tabs Itzel Stewart, 10/02/2018 10mg by mouth at Tabatha R.D. Tablets bedtime as needed maximum daily dose =1 Doxycycline Monohydrate 1 tabs by mouth 14tabs J20.9 Itzel Stewart, 05/08 twice a day Tabatha R.DHarriett 100mg Tablets Blood Pressure Monitor Monitor cover by 1units Itzel Stewart, 06/21/2017 Del[employer] insurance. as Maximo Mays.Tena Kit needed Cyclobenzaprine HCL take 1 tablet by 30tabs M54.2 Itzel Stewart, 2015 10mg mouth twice a day Tabatha R.DHarriett Tablets as needed for pain/muscle tightness Zofran fill generically. 30tabs Itzel Stewart, 12/10/2013 4mg Tablets take one tablets Oz Mays by mouth 1/2 hour before meals as needed Klonopin 1 po bid 30tabs Itzel Stewart, 08/04/2009 1mg Tablets Prescribed by Oz Mays NP Fluoxetine HCL Unknown 20mg Capsules History Medications Penicillin V 1 take by mouth 30tabs Nando Cervantes, 01/04/2019 - Potassium tablet every 8 MD 01/22/2019 500mg hours for 10 days Tablets for throat infection Sumatriptan take 1 tab by 30tabs G43.009 Itzel Stewart, 12/27/2018 - Succinate mouth at headache Oz Mays 12/27/2018 50mg onset. may repeat Tablets in 2 hours. max use twice a week Sumatriptan 1 po at headache 14tabs G43.009 Itzel Stewart, 12/27/2018 - Succinate onset. May Oz Mays 01/22/2019 25mg repeat in 2 hours Tablets prn Medications Administered in Office Medication SIG Qnty Indications Ordering Provider Date Phenergan Injection (Up To Itzel Stewart M.D., 07/07/2016 50MG) R.D. Injection Phenergan Injection (Up To Itzel Stewart M.D., 10/10/2015 50MG) R.D. Injection Phenergan Injection (Up To Itzel Stewart M.D., 07/16/2015 50MG) R.D. Injection Immunizations CPT Code Status Date Vaccine Lot # [id number] Given 05/15/2019 Influenza Virus Vaccine, Quadrivalent, 3 Yr > [id number] Quad, Preserv Free 20256 Given 01/09/2018 Influenza Virus Vaccine, Quadrivalent, 3 Yr > [id number] Quad, Preserv Free 93581 Given 12/07/2017 Tdap (Adacel) [id number] Given 01/03/2017 Influenza Virus Vaccine, Quadrivalent, 3 Yr > [id number] Quad, Preserv Free 02935 Given 01/20/2015 Influenza Virus Vaccine, Quadrivalent, 3 Yr > [id number] Quad, Preserv Free 87660 Given 02/07/2014 Influenza Virus Vaccine, Quadrivalent, 3 Yr > [id number] Quad, Preserv Free 72636 Given 03/12/2010 Influenza Vaccine-Preservative Free 3 Yrs And [id number] Above 98989 Refused 08/25/2016 Influenza Virus Vaccine, Quadrivalent, 3 Yr > Quad , Preserv Free Vital Signs Date Vital Result Comment 05/23/2019 11:41am BP Systolic 132 mmHg BP Diastolic 80 mmHg Heart Rate 74 /min Body Temperature 98.2 F Respiratory Rate 16 /min O2 % BldC Oximetry 98 % 02/05/2019 3:35pm Weight 179.00 lb Weight 81.194 kg BP Systolic 134 mmHg BP Diastolic 82 mmHg Heart Rate 102 /min Body Temperature 98.2 F Respiratory Rate 16 /min O2 % BldC Oximetry 97 % Results Test Acquired Date Facility Test Result H/L Range Note Laboratory test finding 05/23/2019 In House Lab Strep PCR neg (607)- - Procedures Description No Information Available Medical Devices Description No Information Available Encounters Type Date Location Provider Dx Diagnosis Office Visit 02/05/2019 Main Office Itzel Stewart, J01.90 Acute sinusitis , 3:45p Tabatha, R.D. unspecified J20.9 Acute bronchitis, unspecified G43.009 Migraine w/o aura, not intractable, w/o status migrainosus Office Visit 01/22/2019 11:15a Main Office Itzel Stewart G43.009 Migraine w/o aura, M.D., R.D. not intractable, w/o status migrainosus Z73.3 Stress, not elsewhere classified Office Visit 12/27/2018 11:30a Main Office Itzel Stewart, G43.009 Migraine w/o aura, M.D., R.D. not intractable, w/o status migrainosus Assessments Date Code Description Provider 05/23/2019 J06.9 Acute upper respiratory infection, Nando Cervantes MD unspecified 05/15/2019 Z23 Encounter for immunization Nando Cervantes MD 02/05/2019 J01.90 Acute sinusitis, unspecified Itzel Stewart M.D., R.D. 02/05/2019 J20.9 Acute bronchitis, unspecified Itzel Stewart M.D., R.D. 02/05/2019 G43.009 Migraine without aura, not intractable, Itzel Stewart M.D., R.D. without status migra 01/22/2019 G43.009 Migraine without aura, not intractable, Itzel Stewart M.D., R.D. without status migrainosus 01/22/2019 Z73.3 Emotional stress Itzel Stewart M.D., R.D. 12/27/2018 G43.009 Migraine without aura, not intractable, Itzel Stewart M.D., R.D. without status migrainosus Plan of Treatment 05/23/2019 - Nando Cervantes MDJ06.9 Acute upper respiratory infection, unspecifiedComments:I recommended symptomatic treatment. She has tried Tessalon Perles in the past, but had side effects.She feels good about the use of codeine cough syrup, however with her other medications I declined to provide this today. I recommended using plain Robitussin and hot tea with honey instead. Functional Status Description No Information Available Mental Status Description No Information Available Referrals Refer to Dr Reason for Referral Status Appt Date [facility] Referral to Neurology at Patient Declined [facility] for migraines. - - Please contact Pt to schedule appt.] - - Please fax appointment date/time to [facility], . Neurology[facility] [address] [place] [phone] Hebert Lopez MD Referral to Dr. Lopez for migraine pain, - - Closed 2018 Please contact Pt to schedule appt. - - Please fax appointment date/time to [facility], . [address] [place] [phone]
[2019-06-13] MEDS ORDERED: Ketorolac INJ* 30 MG/ML 1 ML VIAL IV PUSH ONE (00:55)
[2019-06-13] MEDS ORDERED: Ondansetron INJ* 2 MG/ML VIAL IV ONE (00:55)
[2019-06-13] MEDS ORDERED: NS 0.9% 1000 ML** 1,000 ML IV ONE (00:55)
[2019-06-13 03:06] VITALS: BP 116/79
--- NOTE | 2019-06-13 05:28 | ED ---
Headache - HPI Summary HPI Summary: Patient is a 43 y/o F w/ Hx of migraines who presents to [facility] with chief complaint of migraine BURGER. She states that the BURGER has been present for the past three days; Pain is characterized as severe, BURGER is located behind her left eye and radiates into her neck. She claims that she had a syncopal episode earlier today and has been experiencing N/V as well. Tingling, numbness, weakness are denied. Patient states that she has taken Excedrin, Zofran with no relief. She reports that she is prescribed Dilaudid to be used for severe pain as needed. Patient is followed by Dr. Lopez for pain management. PMHx of globus pharyngeus , GERD, PTSD reported. She is on Fluoxetine and Klonopin and notes that she received an Aimovig shot monthly. She is a non-smoker and denies alcohol and substance usage. PSHx of throat surgery, caesarean section noted. Home medications and allergies are reviewed. - History Of Current Complaint Chief Complaint: EDHeadache Stated Complaint: HEADACHE PER EMS Hx Obtained From: Patient Onset/Duration: Started days ago, Still Present Currently Pain Is: Severe Timing: Days Character: Migraine Associated Signs And Symptoms: Nausea, Vomiting, Other (Noted In Comments) - positive - syncope; negative - weakness, numbness, tingling - Allergies/Home Medications Allergies/Adverse Reactions: Allergies Allergy/AdvReac Type Severity Reaction Status Date / Time prochlorperazine Allergy Severe See Comment Verified 06/12/19 20:15 [From Compazine] promethazine Allergy Severe See Comment Verified 06/12/19 20:15 clotrimazole Allergy Unknown Verified 06/12/19 20:15 Reaction Details perphenazine Allergy Unknown Verified 06/12/19 20:15 Reaction Details fentanyl AdvReac Severe Headache Verified 06/12/19 20:15 metoclopramide [From Reglan] AdvReac Mild See Comment Verified 06/12/19 20:15 carisoprodol [From Soma] AdvReac "PASSED Verified 06/12/19 20:15 OUT" haloperidol AdvReac Agitation Verified 06/12/19 20:15 hydralazine AdvReac Anxiety Verified 06/12/19 20:15 magnesium sulfate AdvReac See Comment Verified 06/12/19 20:15 sumatriptan [From Imitrex] AdvReac See Comment Verified 06/12/19 20:15 tramadol [From Ultram] AdvReac See Comment Verified 06/12/19 20:15 STEROIDS AdvReac See Comment Uncoded 04/18/19 17:09 Home Medications: Home Medications HYDROmorphone TAB* [Dilaudid TAB*] 2 - 4 mg PO DAILY PRN MDD 8 10/22/17 [ History Confirmed 06/13/19] Ondansetron TAB* [Zofran 4 MG Tab*] 4 mg PO AC PRN 04/24/18 [History Confirmed 06/13/19] Erenumab-Aooe [Aimovig Autoinjector] 70 mg SUBCUT MONTHLY 10/18/18 [History Confirmed 06/13/19] FLUoxetine CAP* [PROzac CAP*] 60 mg PO DAILY 10/18/18 [History Confirmed ] Metoprolol Tartrate TAB* [Lopressor TAB*] 12.5 mg PO BID 10/18/18 [History Confirmed 06/13/19] Zolpidem TAB* [Ambien TAB*] 10 mg PO BEDTIME PRN 10/18/18 [History Confirmed 02/21] clonazePAM TAB(*) [KlonoPIN TAB(*)] 1 mg PO BID 10/18/18 [History Confirmed 02/21] PMH/Surg Hx/FS Hx/Imm Hx Endocrine/Hematology History: Reports: Hx Thyroid Disease - hypothyroidism?, Hx Anemia - during and after of child- NO PROBLEMS NOW Denies: Hx Diabetes Cardiovascular History: Reports: Hx Hypertension - BODERLINE Denies: Hx Congestive Heart Failure, Hx Pacemaker/ICD, Other Cardiovascular Problems/Disorders Respiratory History: Reports: Hx Pulmonary Edema - 2013 after C section-Pre eclampsia, Hx Seasonal Allergies, Hx Sleep Apnea - ?-POSSIBLY- NEVER BEEN TESTED FOR-ONCE MENTIONED IN 2013 PER PATIENT, Other Respiratory Problems/ Disorders - History of Pneumonia Denies: Hx Asthma, Hx Chronic Obstructive Pulmonary Disease (COPD) GI History: Denies: Hx Gastroesophageal Reflux Disease, Other GI Disorders History: Reports: Other Problems/Disorders Denies: Hx Renal Disease Musculoskeletal History: Reports: Hx Back Problems, Other Musculoskeletal History - Bilateral Carpal Tunnel Release Denies: Hx Rheumatoid Arthritis, Hx Osteoporosis Sensory History: Reports: Hx Contacts or Glasses - Glasses and contacts-will wear glasses day of surgery Denies: Hx Legally Blind, Hx Deafness Opthamlomology History: Reports: Hx Contacts or Glasses - Glasses and contacts- will wear glasses day of surgery Denies: Hx Legally Blind Neurological History: Reports: Hx Migraine - CHRONIC-PRN MEDICATION DILAUDID AND ZOFRAN, Hx Seizures - when in her 20's reports 2-none since, Other Neuro Impairments/Disorders - PTSD-SEES A THERAPIST- AND ON MEDICATION FOR Psychiatric History: Reports: Hx Anxiety - history of, not recent, Hx Depression , Hx Community Mental Health Tx, Hx Suicide Attempt - hx of 'accidental overdose on prescription medications', Other Psychiatric Issues/Disorders Denies: Hx Eating Disorder, Hx Panic Disorder, Hx of Violent Episodes Against Others - Surgical History Surgery Procedure, Year, and Place: . BILATERAL CARPAL TUNNEL RELEASE- 2016. TONSILLECTOMY. LAPAROSCOPY-REMOVAL OF ENDOMETRIOSIS AND REMOVAL OF [id number]. BOTOX INJECTION INTO HER VOCAL CORDS 2018 Hx Anesthesia Reactions: Yes - Epidural didn't work with C Section,fentanyl can trigger migraine - Immunization History Date of Tetanus Vaccine: Up to date Date of Influenza Vaccine: None for Fall 2012 Immunizations Up to Date: Yes Infectious Disease History: No Infectious Disease History: Denies: Hx Hepatitis, Hx Human Immunodeficiency Virus (HIV), Traveled Outside the [place] in Last 30 Days - Family History Known Family History: Positive: Other - mother: bipolar disorder; depression: grandmother, uncle Negative: Diabetes - Social History Alcohol Use: None Hx Substance Use: No Substance Use Type: Reports: None Substance Use Comment - Amount & Last Used: None confirmed by patient Hx Tobacco Use: No Smoking Status (MU): Never Smoked Tobacco Have You Smoked in the Last Year: No - Additional Comments History Additional Comments: PMHx of globus pharyngeus, GERD, PTSD reported PSHx of throat surgery and caesarean section Review of Systems - ROS Summary Review of Systems Summary: Home Medications Medication Instructions Recorded Confirmed Type HYDROmorphone TAB* [Dilaudid TAB*] 2 - 4 mg PO DAILY PRN MDD 8 10/22/17 History Ondansetron TAB* [Zofran 4 MG Tab*] 4 mg PO AC PRN 04/24/18 06/13/19 History Erenumab-Aooe [Aimovig 70 mg SUBCUT MONTHLY 10/18/18 06/13/19 History Autoinjector] FLUoxetine CAP* [PROzac CAP*] 60 mg PO DAILY 10/18/18 06/13/19 History Metoprolol Tartrate TAB* 12.5 mg PO BID 10/18/18 06/13/19 History [Lopressor TAB*] Zolpidem TAB* [Ambien TAB*] 10 mg PO BEDTIME PRN 10/18/18 06/13/19 History clonazePAM TAB(*) [KlonoPIN TAB(*)] 1 mg PO BID 10/18/18 06/13/19 History Positive: Vomiting, Nausea Positive: Headache, Syncope. Negative: Weakness, Paresthesia, Numbness All Other Systems Reviewed And Are Negative: Yes Physical Exam - Summary Physical Exam Summary: General: Well-developed, Well-nourished female. Appears in moderate discomfort. Lying on side with lights out in the room. HEENT: Normocephalic, Atraumatic. Eyes: Conjuctiva normal, PERRL. Oropharynx: Clear, mucous membranes moist, (-) exudates. Neck: Soft, FROM, (-) lymphadenopathy, (-) thyromegaly, (-) JVD. Cardiovascular: Normal sinus rhythm, (-) murmur. Lungs: Clear to auscultation bilaterally (-) wheezes, (-) rales, (-) rhonchi. Abdomen: Soft, non-tender, non-distended, (-) organomegaly, normal bowel sounds. Back: (-) CVA tenderness Extremities: No edema. Skin: Warm, dry, (-) rash. Neuro: Alert and oriented x3, moves all extremities equally. No ataxia. No gait disturbance. No sensory deficit. Normal strength, normal sensation. Psychiatric: Poor eye contact. Triage Information Reviewed: Yes Vital Signs On Initial Exam: Initial Vitals Temp Pulse Resp BP Pulse Ox 98.0 F 124 18 131/101 98 06/12/19 20:15 06/12/19 20:15 06/12/19 20:15 06/12/19 20:15 06/12/19 20:15 Vital Signs Reviewed: Yes Procedures - Sedation Patient Received Moderate/Deep Sedation with Procedure: No Diagnostics - Vital Signs Vital Signs Temp Pulse Resp BP Pulse Ox 06/13/19 03:00 125 99 06/13/19 02:54 113 116/79 97 06/13/19 02:53 116 99 06/13/19 02:27 114 20 140/90 98 06/12/19 23:31 99.2 F 108 22 127/78 96 06/12/19 20:15 98.0 F 124 18 131/101 98 - Laboratory Lab Statement: Any lab studies that have been ordered have been reviewed, and results considered in the medical decision making process. Headache Course/Dx - Course Course Of Treatment: 43-year-old female presents from home with headache. She states she's had migraine now for 3 days. Severe behind left eye. Accompanied by nausea and vomiting. She states she has taken Excedrin and Zofran without relief. She also takes Dilaudid as her "rescue medicine" for migraines. She states she has been vomiting everything up so nothing is helping. Patient states she follows with Dr. Lopez for pain management. She states when she gets like this the only thing that helps her is IV Dilaudid. Patient has normal physical exam within normal sensation and strength. No neurological deficits. She is treated with IV fluids, Toradol and Zofran. Patient states that she had no improvement with this treatment. I had a very long conversation with patient regarding the use of narcotics and migraines. I am concerned about the amount of Dilaudid she is using at home for her migraines. I discussed the possibility of addiction and withdrawal symptoms. I stop is consulted. Patient received a prescription for 60 Dilaudid tablets of 2 mg each March 06. Received prescription for 15 tablets of Dilaudid 2 mg April 09. Received prescription for 15 tablets of Dilaudid 2 mg April 24. Patient also gets monthly prescriptions for clonazepam and zolpidem. Patient states she is unable to give a urine sample. She refuses another bag of IV fluids. I have explained to patient I don't feel comfortable giving her Dilaudid for this migraine. If her pain is intractable without narcotics I feel that she should be admitted for pain control. Patient became very agitated and immediately asked for the patient advocate. Patient adamantly refused admission or any other treatment by me. The nursing diversified crops supervisor is called to speak with patient. the patient requests discharge which is completed. Follow-up with PCP. May return any time to the emergency room for care. - Diagnoses Provider Diagnoses: Migraine headache Discharge ED - Sign-Out/Discharge Documenting (check all that apply): Patient Departure - discharge - Discharge Plan Condition: Stable Disposition: HOME Patient Education Materials: Migraine Headache (ED) Referrals: Itzel Landeros MD [Primary Care Provider] - 3 Days Additional Instructions: PLEASE RETURN TO ED FOR ANY NEW OR CONCERNING SYMPTOMS. PLEASE FOLLOW UP WITH YOUR PRIMARY CARE PHYSICIAN WITHIN THREE DAYS. - Billing Disposition and Condition Condition: STABLE Disposition: Home - Attestation Statements Document Initiated by Irise: Yes Documenting Scribe: FAB WILSON Provider For Whom Kelly is Documenting (Include Credential): ANTOINETTE TOPETE MD Scribe Attestation: IFAB, scribed for ANTOINETTE TOPETE MD on 06/16/19 at 0550. Scribe Documentation Reviewed: Yes Provider Attestation: The documentation as recorded by the FAB bolanos accurately reflects the service I personally performed and the decisions made by me, ANTOINETTE TOPETE MD Status of Scribe Document: Viewed
== END 2019-06-13 04:13 | disposition home or self-care (01) ==
LOC: ED 20:11
DX: R11.2 Nausea with vomiting, unspecified (principal); R55 Syncope and collapse; I10 Essential (primary) hypertension; Z79.899 Other long term (current) drug therapy; Z88.5 Allergy status to narcotic agent; Z88.8 Allergy status to other drugs, medicaments and biological substances
CPT/HCPCS: 96374; 96375; 99283; J1885; J2405